=== PATIENT | female | born 1995 | race Two or more races ===

== ENCOUNTER 2024-12-31 16:32 | Emergency (ER) | payer MEDICAID, SELFPAY ==
[2024-12-31 16:34] VITALS: BMI 28.9
[2024-12-31 16:59] VITALS: BP 117/77; PULSE 91; RESP 18; TEMP 36.9; O2SAT 96
--- NOTE | 2024-12-31 17:01 | XR_ITS ---
Examination: OB Transvaginal ultrasound of the pelvis, complete Technique: Transvaginal sonographic images pelvis performed using cameron scale imaging Exam date and time: December 31, 2024 7011 hours INDICATIONS: Pelvic pain nausea and vomiting onset today FINDINGS: Uterus 10.9 cm with intrauterine gestational sac 0.8 cm corresponding to 5 weeks 4 days gestational age No pole, no cardiac activity Right ovary 3.5 cm arterial flow Left ovary obscured by bowel gas IMPRESSION: Empty intrauterine gestational sac, no pole, no cardiac activity Recommend short-term follow-up transvaginal pelvic sonography to confirm viability
--- NOTE | 2024-12-31 17:02 | PD.EDRME ---
Rapid Medical Screening Exam RME Arrival date/time: 12/31/24 16:32 29-year-old female presents to the emergency department today stating she approximate 7 weeks patient reports nausea vomiting pelvic pain Chief Complaint: General Adult/Misc Complain Vital signs: Vital Signs Temperature 98.4 F 12/31/24 16:59 Pulse Rate 91 12/31/24 16:59 Respiratory Rate 18 12/31/24 16:59 Blood Pressure 117/77 12/31/24 16:59 Pulse Oximetry (%) 96 12/31/24 16:59 Oxygen Delivery Method Room Air 12/31/24 16:59
[2024-12-31] MEDS: METOCLOPRAMIDE INJ 5 MG/ML VIAL 2 ML 10 MG IM (17:22)
[2024-12-31 17:47] LABS: Basophils % (Auto) 0 % (0-2.5); Eosinophils # (Auto) 0.1 Thou/mm3 (0.0-0.5); Eosinophils % (Auto) 2 % (0-10); Hematocrit 37.5 % (36.0-46.0); Hemoglobin 12.9 g/dL (12.0-16.0); Immature Granulocytes % (Auto) 0 % (0-0); Immature Granulocytes Auto 0.02 Thou/mm3 (0.00-0.00); Lymphocytes # (Auto) 2.2 Thou/mm3 (1.0-4.8); Lymphocytes % (Auto) 37 % (10-50); Mean Corpuscular HGB Conc 34.4 g/dl (31.0-37.0); Mean Corpuscular Hemoglobin 28.2 pg (25.0-35.0); Mean Corpuscular Volume 82 fL (80-100); Monocytes # (Auto) 0.3 Thou/mm3 (0.0-0.8); Monocytes % (Auto) 6 % (0-12); Neutrophils # (Auto) 3.4 Thou/mm3 (1.8-7.7); Neutrophils % (Auto) 56 % (37-80); Nucleated Red Blood Cell % 0 /100 WBC (0); Platelet Count 331 Thou/mm3 (140-440); RDW Standard Deviation 37.9 fL (36.4-46.3); Red Blood Count 4.58 Miln/mm3 (4.00-5.20); White Blood Count 6.1 Thou/mm3 (3.6-11.0)
[2024-12-31 18:38] LABS: Alanine Aminotransferase 25 U/L (10-49); Albumin, Serum 4.5 gm/dL (3.5-5.0); Albumin/Globulin Ratio 1.5 (1.2-2.2); Alkaline Phosphatase 91 U/L (46-116); Anion Gap 11 (7-16); Aspartate Amino Transferase 16 U/L (0-34); BUN/Creatinine Ratio 14 Ratio (12-20); Beta HCG,Quantitative 4051 mIU/mL (<5.0); Bilirubin,Total 0.4 mg/dL (0.3-1.2); Blood Urea Nitrogen 10 mg/dL (9-23); Calcium 9.7 mg/dL (8.3-10.6); Calcium (Corrected) 9.7 mg/dL (8.5-10.1); Carbon Dioxide 21.9 mMol/L (20.0-31.0); Chloride 101 mMol/L (98-107); Creatinine (Component) 0.7 mg/dL (0.6-1.3); Glucose 264 mg/dL (74-106); Lipase 32 U/L (12-53); Osmolality,Calculated 276 (275-295); Sodium 134 mMol/L (136-145); Total Protein 7.5 gm/dL (5.7-8.2); eGFR > 60 See Note
[2024-12-31 19:30] LABS: Collection Type, Urine Clean Catch
[2024-12-31 20:00] LABS: Bilirubin,Urine Negative (Negative); Blood,Urine Negative (Negative); Clarity,Urine Clear (Clear/Hazy); Color,Urine Lt-Yellow (Lt Yel-Yel); Glucose, Urine 4+ (Negative); Ketones,Urine 2+ (Negative); Leukocyte Esterase,Urine Negative (Negative); Nitrite,Urine Negative (Negative); Protein,Urine Trace (Neg - Trace); RBC,Urine 1 /hpf (0-3); Specific Gravity,Urine 1.038 (1.001-1.035); Squamous Epithelial Cell,Urine 1 /hpf (0-5); Urobilinogen,Urine Negative mg/dL (0.0-1.0); WBC,Urine 1 /hpf (0-5)
--- NOTE | 2024-12-31 22:04 | EDNOTE_ITS ---
ED General RME/HPI General Chief complaint: General Adult/Misc Complain Stated complaint: 7 weeks preg, cramping, nausea Time Seen by Provider: 12/31/24 18:58 Arrival date/time: 12/31/24 16:32 RME / HPI RME / HPI narrative: 29-year-old female patient, 4 para 3, about 7 weeks , came in for evaluation regarding pelvic cramping. Patient's been having pelvic cramping earlier today associated with nausea. Denies any vaginal bleeding spotting or abnormal vaginal discharges. Denies any dysuria or frequency. Denies any other complaints no medications taken prior to arrival. Related Data Home Medications ?Medication ?Instructions ?Recorded ?Confirmed ferrous sulfate 324 mg (65 mg 324 mg PO QDAY 01/12/20 11/25/23 iron) tablet,delayed release vit no.95-ferrous 1 tab PO QDAY 01/12/2011/07 fumarate 28 mg-folic acid 800 mcg tablet () insulin aspart U-100 100 unit/mL 34 unit subcut TID 10/09/23 (3 mL) subcutaneous pen (Novolog FlexPen U-100 Insulin aspart) insulin detemir U-100 100 unit/mL 52 unit subcut QDAY 10/09/23 10/09/23 (3 mL) subcutaneous pen (Levemir FlexPen) insulin detemir U-100 100 unit/mL 52 unit subcut QPM 0 10/09/23 10/09/23 (3 mL) subcutaneous pen (Levemir FlexPen) insulin aspart U-100 100 unit/mL subcut 01/04/24 (3 mL) subcutaneous pen (Novolog FlexPen U-100 Insulin aspart) levothyroxine 100 mcg tablet mcg 01/04/24 Previous Rx's ?Medication ?Instructions ?Recorded fluconazole 150 mg tablet 150 mg PO QDAY 1 dose #1 tab 11/25/23 acetaminophen 300 mg-codeine 15 mg 1 tab PO Q12H PRN p ain #14 tabs 01/07/24 tablet ibuprofen 800 mg tablet 800 mg PO Q8H PRN pain #30 t abs 01/07/24 Allergies Allergy/AdvReac Type Severity Reaction Status Date / Time No Known Allergies Allergy Verified 01/04/24 22:54 Review of Systems Review of Systems Narrative Review of Systems: Review of system reviewed and within normal limits except mentioned in HPI ED Exam Narrative Physical exam: VITAL SIGNS: Reviewed. GENERAL APPEARANCE: Alert and interactive, follows commands, no acute distress, HEAD AND FACE: Non-traumatic. ENT: PERRL, pink conjunctivitis, eyelid no trauma, Mucous membrane moist. NECK: Supple, nontender, no nuchal rigidity. CHEST: No tenderness, no crepitus, no paradoxical movement, no retractions. LUNGS: Clear, well ventilated, symmetric, no rales, no wheezing, no ronchi, no stridor, good breath sounds bilaterally. HEART: Regular rate, regular rhythm, no murmur, no gallops. ABDOMEN: Soft, positive bowel sounds, nondistended, no guarding, nontender, no rebound, no masses, RECTAL: Deferred. GENITAL: Deferred. NEUROLOGICAL: Gross motor function intact sensory function intact, Appropriate for age. MUSCULOSKELETAL: low back nontender, full range of motion. EXTREMITIES: Nontender, full range of motion. SKIN: Color pink, dry, no rash, no lacerations, no abrasions, no contusions. LYMPHATICS: Deferred. Course Quality Measures none Orders Category Date Time Status US OB transvaginal Stat Exams 12/31/24 17:01 Completed ABO/RH Type Stat Lab 12/31/24 17:30 Completed Beta HCG,Quantitative Stat Lab 12/31/24 17:30 Completed CBC Stat Lab 12/31/24 17:30 Completed Comprehensive Metabolic Panel Stat Lab 12/31/24 17:30 Completed Lipase Stat Lab 12/31/24 17:30 Completed UA [Urinalysis] Stat Lab 12/31/24 19:14 Completed Urine Culture Stat Lab 12/31/24 19:14 Received Metoclopramide Inj [Reglan Inj] Med 12/31/24 17:01 Discontinued 10 mg IM X1 ONE Vital Signs Vital signs: Vital Signs Temperature 98.4 F 12/31/24 16:59 Pulse Rate 91 12/31/24 16:59 Respiratory Rate 18 12/31/24 16:59 Blood Pressure 117/77 12/31/24 16:59 Pulse Oximetry (%) 96 12/31/24 16:59 Oxygen Delivery Method Room Air 12/31/24 16:59 [facility] Patient data External records reviewed:: None Clinical information provided by:: patient Social determinants that could affect healthcare access:: none Patient has the following chronic illnesses:: None How is presenting disease/condition affected by chronic disease/condition?: no chronic disease Evaluation data The following diagnostics were reviewed and interpreted by me:: lab results and radiology exam(s) Lab and/or radiology exams considered but not ordered:: None Interpretation Summary: See results in MDM Medications Medications considered but not ordered:: None Medication administrations:: Medication Administration History Discontinued Medications Metoclopramide HCl (Metoclopramide Inj 5 Mg/Ml Vial 2 Ml) 10 mg IM X1 ONE; Protocol Stop: 12/31/24 17:02 Last Admin: 12/31/24 17:22 Dose: 10 mg Documented By: Reglan Consultations Consultation(s) initiated? (list below): No Diagnosis Differential Diagnosis ED Complaint MDM: Pelvic cramping, UTI, threatened , ectopic , Most likely diagnosis given after review of the tests above:: Pelvic cramping, Admission Indicated Admission indicated?: not indicated Explain why admission is indicated or not indicated:: Stable Admission Request Was there a request for admission?: No Disposition Plan Disposition Plan: Discharge Discharge Attestation Discharge Attestation: The patient was given an opportunity to ask questions and understood the discharge instructions. Discharge instructions specifically effects, indications for sooner follow up or return to the emergency department, and the expected course of current diagnosis. Patient condition: Stable Medical Decision Making MDM Narrative MDM Narrative: 29-year-old female patient, 4 para 3, about 7 weeks , came in for evaluation regarding pelvic cramping. Patient's been having pelvic cramping earlier today associated with nausea. Denies any vaginal bleeding spotting or abnormal vaginal discharges. Denies any dysuria or frequency. Denies any other complaints no medications taken prior to arrival. Patient's workup today is significant for hCG of 4051, ultrasound of showed empty gestational sac intrauterine, with no cardiac activity or pole. Results discussed with the patient. Patient was also given a copy of her ultrasound. The rest of the labs is abdomen remarkable. Patient was advised to return to emergency room or follow-up with PCP in 3 days for repeat hCG. Differential Diagnosis Differential Diagnosis: Pelvic cramping, UTI, threatened , ectopic , Lab Data 12/31/24 17:30 12/31/24 17:30 Labs: Lab Results 12/31/24 12/31/24 Range/Units 17:30 19:14 WBC 6.1 (3.6-11.0) Thou/mm3 RBC 4.58 (4.00-5.20) Miln/mm3 Hgb 12.9 (12.0-16.0) g/dL Hct 37.5 (36.0-46.0) % MCV 82 (80-100) fL MCH 28.2 (25.0-35.0) pg MCHC 34.4 (31.0-37.0) g/dl RDW Std Deviation 37.9 (36.4-46.3) fL Plt Count 331 (140-440) Thou/mm3 Neut % (Auto) 56 (37-80) % Lymph % (Auto) 37 (10-50) % [place] % (Auto) 6 (0-12) % Eos % (Auto) 2 (0-10) % Baso % (Auto) 0 (0-2.5) % Neut # (Auto) 3.4 (1.8-7.7) Thou/mm3 Lymph # (Auto) 2.2 (1.0-4.8) Thou/mm3 [place] # (Auto) 0.3 (0.0-0.8) Thou/mm3 Eos # (Auto) 0.1 (0.0-0.5) Thou/mm3 Baso # (Auto) 0.0 (0.0-0.2) Thou/mm3 Immature Gran # (Auto) 0.02 H (0.00-0.00) Thou/mm3 Absolute Nucleated RBC 0.00 (0.00-0.00) Thou/mm3 Immature Gran % 0 (0-0) % Nucleated RBC % 0 (0) /100 WBC Sodium 134 L (136-145) mMol/L Potassium 4.0 (3.4-5.1) mMol/L Chloride 101 (98-107) mMol/L Carbon Dioxide 21.9 (20.0-31.0) mMol/L Anion Gap 11 (7-16) BUN 10 (9-23) mg/dL Creatinine 0.7 (0.6-1.3) mg/dL Estim Creat Clear Calc 108.0 (>60) mL/min eGFR > 60 (60 - ) See Note BUN/Creatinine Ratio 14 (12-20) Ratio Glucose 264 H (74-106) mg/dL Calculated Osmolality 276 (275-295) Calcium 9.7 (8.3-10.6) mg/dL Corrected Calcium 9.7 (8.5-10.1) mg/dL Total Bilirubin 0.4 (0.3-1.2) mg/dL AST 16 (0-34) U/L ALT 25 (10-49) U/L Alkaline Phosphatase 91 (46-116) U/L Total Protein 7.5 (5.7-8.2) gm/dL Albumin 4.5 (3.5-5.0) gm/dL Globulin 3.0 (2.3-3.5) gm/dL Albumin/Globulin Ratio 1.5 (1.2-2.2) Lipase 32 (12-53) U/L Beta HCG, Quant 4051 (<5.0) mIU/mL Ur Collection Type Clean Catch Urine Color Lt-Yellow (Lt Yel-Yel) Urine Clarity Clear (Clear/Hazy) Urine pH 6.0 (5.0-7.0) Ur Specific [place] 1.038 H (1.001-1.035) Urine Protein Trace (Neg - Trace) Urine Glucose (UA) 4+ A (Negative) Urine Ketones 2+ A (Negative) Urine Blood Negative (Negative) Urine Nitrite Negative (Negative) Urine Bilirubin Negative (Negative) Urine Urobilinogen (Auto) Negative (0.0-1.0) mg/dL Ur Leukocyte Esterase Negative (Negative) Urine RBC 1 (0-3) /hpf Urine WBC 1 (0-5) /hpf Ur Squamous Epith Cells 1 (0-5) /hpf Urine Bacteria None (None) Blood Type A Positive Blood Bank Wristband ID Yes Discharge Plan Plan Patient Disposition: HOME (Self Care) Prescriptions/Referrals Prescriptions/Med Rec: No Action ferrous sulfate 324 mg (65 mg iron) Tablet,Delayed Release (Dr/Ec) 324 mg PO QDAY PNV cmb#95-ferrous fumarate-FA [] 28 mg iron- 800 mcg Tablet 1 tab PO QDAY fluconazole 150 mg tablet 150 mg PO QDAY Qty: 1 0RF Rx Instructions: administer on day 1 of therapy Levemir FlexPen 100 unit/mL (3 mL) Insulin Pen 52 unit SUBCUT QDAY Levemir FlexPen 100 unit/mL (3 mL) Insulin Pen 52 unit SUBCUT QPM insulin aspart U-100 [Novolog FlexPen U-100 Insulin] 100 unit/mL (3 mL) Insulin Pen 34 unit SUBCUT TID Rx Instructions: 34units with meals levothyroxine 100 mcg tablet Patient Comments: take 1 tablet by mouth every morning ON AN EMPTY STOMACH insulin aspart U-100 [Novolog FlexPen U-100 Insulin] 100 unit/mL (3 mL) insulin pen SUBCUT Patient Comments: inject 34 units BEFORE BREAKFAST, 34 UNITS BEFORE LUNCH, AND 40 UNITS BEFORE DINNER acetaminophen-codeine 300-15 mg tablet 1 tab PO Q12H PRN (Reason: pain) Qty: 14 0RF ibuprofen 800 mg tablet 800 mg PO Q8H PRN (Reason: pain) Qty: 30 0RF Referrals: Villa Kulkarni MD [Primary Care Provider] - In 1 week Problem List Clinical Impression: Pelvic cramping, Currently Patient/Caregiver Discharge Instructions Education Materials: ED Pelvic Pain, Unknown Cause Additional Instructions: Thank you for the opportunity for serving you today. You are stable for discharged . You are advised to: Follow-up with your PCP in 1 to 2 days Return to ED for worsening of symptoms Increase oral fluids Return to emergency room in 3 days for repeat hCG, today's hCG was noted to be 4051. Your ultrasound showed empty gestational sac no cardiac activity or pole noted at this time could be too early Print Language: Belizean Stand Alone Forms: [employer] Award Info., Patient Portal Info Letter
== END 2024-12-31 22:20 | disposition home or self-care (01) ==
PROVIDERS: Nurse Practitioner Primary Care; Emergency Provider Emergency Medicine; PCP Family Medicine
DX: O26.891 Other specified pregnancy related conditions, first trimester (principal); R10.2 Pelvic and perineal pain; Z3A.01 Less than 8 weeks gestation of pregnancy
CPT/HCPCS: 36415; 76817; 80053; 81001; 83690; 84702; 85025; 86900; 86901; 87086; 96372; 99284; J2765

== ENCOUNTER 2025-01-03 21:16 | Emergency (ER) | payer MEDICAID, SELFPAY ==
[2025-01-03 21:17] VITALS: BMI 33.3
[2025-01-03 21:26] VITALS: BP 131/80; PULSE 104; RESP 20; TEMP 36.8; O2SAT 96
--- NOTE | 2025-01-03 21:40 | PD.EDRME ---
Rapid Medical Screening Exam RME Arrival date/time: 01/03/25 21:16 29 year old female present to ED for c/o of need repeat hCG I have greeted and performed a focused initial assessment of this patient. A comprehensive ED assessment and evaluation of the patient, analysis of all test results, and completion of the medical decision making process will be conducted by additional ED providers. Chief Complaint: General Adult/Misc Complain Time Seen by Provider: 01/03/25 21:39 Vital signs: Vital Signs Temperature 98.3 F 01/03/25 21:26 Pulse Rate 104 H 01/03/25 21:26 Respiratory Rate 20 01/03/25 21:26 Blood Pressure 131/80 H 01/03/25 21:26 Pulse Oximetry (%) 96 01/03/25 21:26 Oxygen Delivery Method Room Air 01/03/25 21:26
[2025-01-03 22:37] LABS: Beta HCG,Quantitative 7077 mIU/mL (<5.0)
--- NOTE | 2025-01-03 22:57 | PD.EDADULT ---
ED General RME/HPI General Chief complaint: General Adult/Misc Complain Stated complaint: NEEDS RPT HCG LEVEL Time Seen by Provider: 01/03/25 21:39 Arrival date/time: 01/03/25 21:16 29 year old female present to emergency room for repeat HCG levels done 2 days ago. no current complaint SEVERITY: Symptoms are described as being severe with limitations on activities of daily living CONTEXT: The patient is unable to identify any inciting events. DURATION/TIMING: The symptoms started approximately 2 days ago ASSOCIATED SYMPTOMS: The patient is unable to identify any other associated symptoms. MODIFYING FACTORS: The patient is unable to identify any alleviating or aggravating symptoms. PERTINENT ROS: no fevers, no chest pain/shortness of breath no nausea,vomiting, diarrhea, no dizziness/headache no rash no loc/syncope episode no abd/back pain no dsyuria,urgency,frequency REVIEW OF SYSTEMS: See History of Present Illness - with the exception of those mentioned in the history of present illness, all other systems reviewed and reported as negative GENERAL: In general the patient is awake, interactive, in an emergency department gurney. HEAD/EYES/EARS/NOSE/THROAT: normo-cephalic, atraumatic, mucus membranes are moist, anicteric, palpebral conjunctiva is pink, trachea is midline. CARDIOVASCULAR: regular rate and regular rhythm, no murmurs, heart sounds are not distant, strong pulses in all four extremities that are equal and symmetric bilateral upper and lower extremities, normal capillary refill. CHEST/PULMONARY: normal chest rise and fall, good air movement, clear to auscultation bilaterally, normal inspiratory to expiratory ratios without evidence of respiratory distress. NECK: No midline/Paraspinal tenderness, no step off ROM/Strenght intact No Kernig and bruzinski sign. No trauma ABDOMEN: soft, not tender, no masses appreciated BACK: normal range of motion without pain. NEUROLOGICAL: cranio-facial features are symmetric, moves all four extremities equally without obvious limitations or weakness. EXTREMITY: no tenderness to palpation over the long bones or large joints of the bilateral upper and lower extremities, no joint swelling, no joint erythema, no signs of trauma, no unilateral leg swelling and no peripheral edema. SKIN: warm, dry, well-perfused, no jaundice, no rash, no telangiectasias or petechia. PSYCH: calm, cooperative, no evidence of psychosis or agitation RME / HPI RME / HPI narrative: 01/03/25 21:16 29 year old female present to ED for c/o of need repeat hCG I have greeted and performed a focused initial assessment of this patient. A comprehensive ED assessment and evaluation of the patient, analysis of all test results, and completion of the medical decision making process will be conducted by additional ED providers. Related Data Home Medications ?Medication ?Instructions ?Recorded ?Confirmed ferrous sulfate 324 mg (65 mg 324 mg PO QDAY 01/12/20 11/25/23 iron) tablet,delayed release vit no.95-ferrous 1 tab PO QDAY 01/12/20 11/25/23 fumarate 28 mg-folic acid 800 mcg tablet () insulin aspart U-100 100 unit/mL 34 unit subcut TID 10/09/23 10/09/23 (3 mL) subcutaneous pen (Novolog FlexPen U-100 Insulin aspart) insulin detemir U-100 100 unit/mL 52 unit subcut QDAY 10/09/23 10/09/23 (3 mL) subcutaneous pen (Levemir FlexPen) insulin detemir U-100 100 unit/mL 52 unit subcut QPM 10/09/23 10/09/23 (3 mL) subcutaneous pen (Levemir FlexPen) insulin aspart U-100 100 unit/mL subcut 01/04/24 (3 mL) subcutaneous pen (Novolog FlexPen U-100 Insulin aspart) levothyroxine 100 mcg tablet mcg 01/04/24 Previous Rx's ?Medication ?Instructions ?Recorded fluconazole 150 mg tablet 150 mg PO QDAY 1 dose #1 tab 11/25/23 acetaminophen 300 mg-codeine 15 mg 1 tab PO Q12H PRN pain #14 tabs 01/07/24 tablet ibuprofen 800 mg tablet 800 mg PO Q8H PRN pain #30 tabs 01/07/24 Allergies Allergy/AdvReac Type Severity Reaction Status Date / Time No Known Allergies Allergy Verified 01/04/24 22:54 Course Course Course Narrative: repeat hcg 2 days ago hcg was 4051, today 7077, most likely viatable . advised pt to follow up with OB. FINDINGS: Uterus 10.9 cm with intrauterine gestational sac 0.8 cm corresponding to 5 weeks 4 days gestational age No pole, no cardiac activity Right ovary 3.5 cm arterial flow Left ovary obscured by bowel gas IMPRESSION: Empty intrauterine gestational sac, no pole, no cardiac activity Recommend short-term follow-up transvaginal pelvic sonography to confirm viability Quality Measures none Orders Category Date Time Status Beta HCG,Quantitative Stat Lab 01/03/25 21:45 Completed Vital Signs Vital signs: Vital Signs Temperature 98.3 F 01/03/25 21:26 Pulse Rate 104 H 01/03/25 21:26 Respiratory Rate 20 01/03/25 21:26 Blood Pressure 131/80 H 01/03/25 21:26 Pulse Oximetry (%) 96 01/03/25 21:26 Oxygen Delivery Method Room Air 01/03/25 21:26 MDM Patient data External records reviewed:: [facility] previous records Clinical information provided by:: patient Social determinants that could affect healthcare access:: none Patient has the following chronic illnesses:: n/a How is presenting disease/condition affected by chronic disease/condition?: no chronic disease Evaluation data The following diagnostics were reviewed and interpreted by me:: lab results Lab and/or radiology exams considered but not ordered:: n/a Interpretation Summary: HC Medications Medications considered but not ordered:: n/a Medication administrations:: n/a Consultations Consultation(s) initiated? (list below): No Diagnosis Differential Diagnosis ED Complaint MDM: ectopic, miscarriage Most likely diagnosis given after review of the tests above:: Admission Indicated Admission indicated?: not indicated Explain why admission is indicated or not indicated:: n/a Admission Request Was there a request for admission?: No Disposition Plan Disposition Plan: Discharge Discharge Attestation Discharge Attestation: The patient and all family members were given an opportunity to ask questions and understood the discharge instructions. Discharge instructions specifically effects, indications for sooner follow up or return to the emergency department, and the expected course of current diagnosis. Patient condition: Stable Medical Decision Making Differential Diagnosis Differential Diagnosis: ectopic, miscarriage Lab Data Labs: Lab Results 01/03/25 Range/Units 21:45 Beta HCG, Quant 7077 (<5.0) mIU/mL Discharge Plan Plan Patient Disposition: HOME (Self Care) Health Concerns: Follow up with your OB as directed Return to ED if symptoms worsen Your HCG level is 7077 today. Prescriptions/Referrals Prescriptions/Med Rec: No Action ferrous sulfate 324 mg (65 mg iron) Tablet,Delayed Release (Dr/Ec) 324 mg PO QDAY PNV cmb#95-ferrous fumarate-FA [] 28 mg iron- 800 mcg Tablet 1 tab PO QDAY fluconazole 150 mg tablet 150 mg PO QDAY Qty: 1 0RF Rx Instructions: administer on day 1 of therapy Levemir FlexPen 100 unit/mL (3 mL) Insulin Pen 52 unit SUBCUT QDAY Levemir FlexPen 100 unit/mL (3 mL) Insulin Pen 52 unit SUBCUT QPM insulin aspart U-100 [Novolog FlexPen U-100 Insulin] 100 unit/mL (3 mL) Insulin Pen 34 unit SUBCUT TID Rx Instructions: 34units with meals levothyroxine 100 mcg tablet Patient Comments: take 1 tablet by mouth every morning ON AN EMPTY STOMACH insulin aspart U-100 [Novolog FlexPen U-100 Insulin] 100 unit/mL (3 mL) insulin pen SUBCUT Patient Comments: inject 34 units BEFORE BREAKFAST, 34 UNITS BEFORE LUNCH, AND 40 UNITS BEFORE DINNER acetaminophen-codeine 300-15 mg tablet 1 tab PO Q12H PRN (Reason: pain) Qty: 14 0RF ibuprofen 800 mg tablet 800 mg PO Q8H PRN (Reason: pain) Qty: 30 0RF Referrals: Villa Kulkarni MD [Primary Care Provider] - In 1 week Problem List Clinical Impression: Currently Patient/Caregiver Discharge Instructions Education Materials: First Trimester Print Language: Nepali Stand Alone Forms: [employer] Award Info., Patient Portal Info Letter
== END 2025-01-03 23:17 | disposition home or self-care (01) ==
PROVIDERS: Physician Assistant; Emergency Provider Emergency Medicine; PCP Family Medicine
DX: O26.891 Other specified pregnancy related conditions, first trimester (principal); Z3A.01 Less than 8 weeks gestation of pregnancy
CPT/HCPCS: 36415; 84702; 99283

== ENCOUNTER 2025-01-14 17:36 | Emergency (ER) | payer MEDICAID, SELFPAY ==
[2025-01-14 18:08] VITALS: BP 108/67; PULSE 90; RESP 18; TEMP 36.6; O2SAT 97; BMI 34.9
--- NOTE | 2025-01-14 18:28 | XR_ITS ---
Examination: OB Transvaginal ultrasound of the pelvis, complete Technique: Transvaginal sonographic images pelvis performed using cameron scale imaging Exam date and time: January 15, 2000 2510 0 1:00 PM Indications: Vaginal bleeding and cramping beginning 6 hours ago Findings: Uterus 11.0 cm with pole 0.8 cm corresponding to 6 week 6 day gestational age Cardiac motion 143 BPM Small adjacent subchorionic hemorrhage 18 x 6 mm Right ovary 2.4 cm arterial flow Left ovary 3.1 cm arterial flow Impression: Viable intrauterine gestation 6 weeks 6 days Small subchorionic hemorrhage, 8 x 2 x 6 mm
--- NOTE | 2025-01-14 18:38 | EDNOTE_ITS ---
ED OB Contraction Preg RMI/HPI General Chief complaint: Vaginal Bleeding Stated complaint: VAGINAL BLEEDING / PAIN X 30 MIN; 9 WKS PREG Time Seen by Provider: 01/14/25 18:27 Arrival date/time: 01/14/25 17:36 29F at approximately 8-9 weeks and with history of gestational DM presents to ED with L-pelvic cramping and vaginal spotting for 30 min. Limitations: no limitations Related Data Home Medications ?Medication ?Instructions ?Recorded ?Confirmed ferrous sulfate 324 mg (65 mg 324 mg PO QDAY 01/12/20 11/25/23 iron) tablet,delayed release vit no.95-ferrous 1 tab PO QDAY 01/12/2011/07 fumarate 28 mg-folic acid 800 mcg tablet () insulin aspart U-100 100 unit/mL 34 unit subcut TID 10/09/23 (3 mL) subcutaneous pen (Novolog FlexPen U-100 Insulin aspart) insulin detemir U-100 100 unit/mL 52 unit subcut QDAY 10/09/23 10/09/23 (3 mL) subcutaneous pen (Levemir FlexPen) insulin detemir U-100 100 unit/mL 52 unit subcut QPM 0 10/09/23 10/09/23 (3 mL) subcutaneous pen (Levemir FlexPen) insulin aspart U-100 100 unit/mL subcut 01/04/24 (3 mL) subcutaneous pen (Novolog FlexPen U-100 Insulin aspart) levothyroxine 100 mcg tablet mcg 01/04/24 Previous Rx's ?Medication ?Instructions ?Recorded fluconazole 150 mg tablet 150 mg PO QDAY 1 dose #1 tab 11/25/23 acetaminophen 300 mg-codeine 15 mg 1 tab PO Q12H PRN p ain #14 tabs 01/07/24 tablet ibuprofen 800 mg tablet 800 mg PO Q8H PRN pain #30 t abs 01/07/24 Allergies Allergy/AdvReac Type Severity Reaction Status Date / Time No Known Allergies Allergy Verified 01/14/25 17:39 Review of Systems Review of Systems Systems Reviewed: All systems reviewed, normal except as documented Constitutional Constitutional: Reports system reviewed and no additional complaints, except as documented, Denies fever(s) and Denies headache(s) ENT Ears, Nose, Mouth, and Throat: Denies disequilibrium and Denies headache(s) Cardiovascular Cardiovascular: Reports system reviewed and no additional complaints, except as documented, Denies chest pain and Denies dyspnea Respiratory Respiratory: Reports system reviewed and no additional complaints, except as documented, Denies cough and Denies dyspnea Gastrointestinal Gastrointestinal: Reports system reviewed and no additional complaints, except as documented, Denies abdominal pain, Denies nausea and Denies vomiting Genitourinary Genitourinary: Reports as per HPI, Reports abnormal vaginal bleeding and Reports pelvic pain Neurologic Neurologic: Reports system reviewed and no additional complaints, except as documented, Denies confusion, Denies disequilibrium and Denies headache(s) Psychiatric Psychiatric: Denies confusion Past Medical History Past Medical History NEUROLOGIC: Negative Neurological Disorders or Seizures CARDIAC: Negative Cardiac Disorders or Congestive Heart Failure RESPIRATORY: Negative Chronic Obstructive Pulmonary Disease (COPD) GASTROINTESTINAL: Positive Gall Bladder Disease; Negative Gastrointestinal Disorders, Hepatitis or Colorectal Cancer GENITOURINARY: Negative Genitourinary Disorders, Renal Disease or Prostate Cancer REPRODUCTIVE: Positive Previous Pregnancies (X2); Negative Breast Cancer, Endometriosis, Pelvic Inflammatory Disease, Testicular Cancer or Uterine Prolapse MUSCULOSKELETAL: Negative Musculoskeletal Disorders or Bone Cancer ENDOCRINE: Positive Endocrine Disorders and Hypothyroidism; Negative Diabetes Mellitus Type 1, Diabetes Mellitus Type 2, Hypoglycemia, Hyperthyroidism, Parathyroid Disease, Pituitary Disease, Systemic Lupus Erythematosus, Syndrome of Inappropriate Antidiuretic Hormone (SIADH) or Graves' Disease HEMATOLOGIC: Negative Blood Disorders OTHER HISTORY: Positive Hospitalization (CHILDBIRTH AND CHOLECYSTECTOMY); Negative Autoimmune Disease, Down Syndrome, Developmental Delay, Shingles, Falls, Blood Transfusions, Blood Transfusion Reaction, Anesthesia Reactions, Organ Transplant, Chemotherapy, Radiation Therapy, Hyperbaric Therapy, MRSA, VRSA, Vancomycin-Resistant Enterococci, Human Immunodeficiency Virus (HIV), Chicken Pox, Measles, Mumps, Rubella ([place] Measles), Pertussis, Clostridium Difficile, Cancer, Breast Cancer, Cervical Cancer, Colorectal Cancer, Lung Cancer, Ovarian Cancer, Prostate Cancer or Testicular Cancer Family History FAMILY HISTORY: Negative Family Psychiatric Problems, Family Respiratory Disorders, Family Cardiac Disorders, Family Gastrointestinal Problems, Family Cancer, Family Surgery or Family Anesthesia Reaction Surgical History SURGICAL: Positive Abdominal Surgery (GALL STONES) and Section (2020); Negative Neurologic Surgery, Brain Shunt, Mastectomy, Lumpectomy, Hysterectomy, Tubal Ligation or Organ Transplant Social History SMOKING STATUS: Never smoker ED Exam General Limitations: Present no limitations General appearance: Present alert and in no apparent distress Head Head exam: Present atraumatic Eye Eye exam: Present normal appearance, PERRL and EOMI ENT ENT exam: Present normal exam, normal oropharynx and mucous membranes moist Neck Neck exam: Present normal inspection, full ROM and trachea midline Chest Chest inspection: Present normal inspection and symmetric chest wall rise Respiratory Respiratory exam: Present normal lung sounds bilaterally Cardiovascular Cardiovascular exam: Present regular rate, normal rhythm and normal heart sounds Abdominal Exam Abdominal exam: Present soft and normal bowel sounds Extremities Exam Extremities exam: Present normal inspection and full ROM Back Exam Back exam: Present normal inspection and full ROM Neurological Exam Neurological exam: Present alert, oriented X3 and CN II-XII intact Psychiatric Psychiatric exam: Present normal affect and normal mood Skin Skin exam: Present warm, dry, intact and normal color Course Quality Measures none Orders Category Date Time Status US OB transvaginal Stat Exams 01/14/25 18:28 Completed US retroperitoneal comp Stat Exams 01/14/25 18:40 Completed Beta HCG,Quantitative Stat Lab 01/14/25 18:39 Completed CBC Stat Lab 01/14/25 18:39 Completed CMP [Comprehensive Metabolic Panel] Stat Lab 01/14/25 18:39 Completed UA [Urinalysis] Stat Lab 01/14/25 18:32 Completed Urine Culture Stat Lab 01/14/25 18:32 Received Vital Signs Vital signs: Vital Signs Temperature 97.8 F 01/14/25 18:08 Pulse Rate 90 01/14/25 18:08 Respiratory Rate 18 01/14/25 18:08 Blood Pressure 108/67 01/14/25 18:08 Pulse Oximetry (%) 97 01/14/25 18:08 Oxygen Delivery Method Room Air 01/14/25 18:08 O2 at 97% on RA and WNLs Vaginal Bleeding MDM Narrative MDM Narrative: 29F at approximately 8-9 weeks and with history of gestational DM presents to ED with L-pelvic cramping and vaginal spotting for 30 min. Physical exam reveals well-appearing female. Patient is afebrile, calm, and alert. Patient's blood type is A+. US reveals normal IUP with normal FHR, but there is a subchorionic hemorrhage. No leukocytosis or anemia. CMP unremarkable. Beta HCG WNLs. UA clean but lots of glucose consistent with gestational DM. Patient data External records reviewed:: [facility] previous records Clinical information provided by:: patient Social determinants that could affect healthcare access:: none Patient has the following chronic illnesses:: none How is presenting disease/condition affected by chronic disease/condition?: no chronic disease Evaluation data The following diagnostics were reviewed and interpreted by me:: lab results and radiology exam(s) Lab and/or radiology exams considered but not ordered:: ordered Interpretation Summary: above Medications / Prescriptions Medications or Prescriptions considered but not ordered:: not ordered Medication administrations:: n/a Consultations Consultation(s) initiated? (list below): No Diagnosis Vaginal Bleeding Differential Diagnosis: missed , threatened , dysfunctional uterine bleeding, menometrorrhagia, incomplete , ectopic without intrauterine , vaginal bleeding and other (subchorionic hemorrhage) Most likely diagnosis given after review of the tests above:: subchorionic hemorrhage Admission Indicated Admission indicated?: not indicated Admission Request Was there a request for admission?: No Disposition Plan Disposition Plan: Discharge Discharge Attestation Discharge Attestation: The patient and all family members were given an opportunity to ask questions and understood the discharge instructions. Discharge instructions specifically effects, indications for sooner follow up or return to the emergency department, and the expected course of current diagnosis. Patient condition: Stable Discharge Plan Plan Patient Disposition: HOME (Self Care) Disposition Comment: Stable Prescriptions/Referrals Prescriptions/Med Rec: No Action ferrous sulfate 324 mg (65 mg iron) Tablet,Delayed Release (Dr/Ec) 324 mg PO QDAY [facility]FA [] 28 mg iron- 800 mcg Tablet 1 tab PO QDAY fluconazole 150 mg tablet 150 mg PO QDAY Qty: 1 0RF Rx Instructions: administer on day 1 of therapy Levemir FlexPen 100 unit/mL (3 mL) Insulin Pen 52 unit SUBCUT QDAY Levemir FlexPen 100 unit/mL (3 mL) Insulin Pen 52 unit SUBCUT QPM insulin aspart U-100 [Novolog FlexPen U-100 Insulin] 100 unit/mL (3 mL) Insulin Pen 34 unit SUBCUT TID Rx Instructions: 34units with meals levothyroxine 100 mcg tablet Patient Comments: take 1 tablet by mouth every morning ON AN EMPTY STOMACH insulin aspart U-100 [Novolog FlexPen U-100 Insulin] 100 unit/mL (3 mL) insulin pen SUBCUT Patient Comments: inject 34 units BEFORE BREAKFAST, 34 UNITS BEFORE LUNCH, AND 40 UNITS BEFORE DINNER acetaminophen-codeine 300-15 mg tablet 1 tab PO Q12H PRN (Reason: pain) Qty: 14 0RF ibuprofen 800 mg tablet 800 mg PO Q8H PRN (Reason: pain) Qty: 30 0RF Referrals: No Primary/Family,Physician [Primary Care Provider] - In 1 week Problem List Clinical Impression: Subchorionic hemorrhage Patient/Caregiver Discharge Instructions Education Materials: Bleeding During Early Additional Instructions: Please follow-up with PCP/OBYGN within 24-48 hours and return immediately if symptoms worsen. Print Language: [place]ib[place]ian Stand Alone Forms: Patient Portal Info Letter PA/[employer]OD BANK [employer]ORATORY PROFESSIONAL Supervising Physician PA/[employer]ORAT[employer] PROFESSIONAL Supervising Physician: Dr. Ballard
--- NOTE | 2025-01-14 18:40 | XR_ITS ---
Examination: Retroperitoneal ultrasound, complete Technique: Multiple high resolution grayscale images of the retroperitoneum obtained, including kidneys and bladder. Exam date and time:January 14, 2025 at 10:10 PM Indications: Left leg pain and vaginal bleeding and cramping beginning 6 hours ago Findings: Right kidney 12.5 cm cortex 1.6 cm Left kidney 13.3 cm cortex 2.0 cm Mild left renal parenchymal scar formation No renal calculi No significant hydronephrosis Contracted urinary bladder Please see the pelvic sonogram report Impression: Mild left renal parenchymal scar formation No hydronephrosis
[2025-01-14 18:45] LABS: Collection Type, Urine Clean Catch
[2025-01-14 18:48] LABS: Basophils % (Auto) 1 % (0-2.5); Eosinophils # (Auto) 0.1 Thou/mm3 (0.0-0.5); Eosinophils % (Auto) 1 % (0-10); Hematocrit 37.6 % (36.0-46.0); Hemoglobin 12.8 g/dL (12.0-16.0); Immature Granulocytes % (Auto) 0 % (0-0); Immature Granulocytes Auto 0.01 Thou/mm3 (0.00-0.00); Lymphocytes # (Auto) 1.9 Thou/mm3 (1.0-4.8); Lymphocytes % (Auto) 37 % (10-50); Mean Corpuscular Hemoglobin 28.4 pg (25.0-35.0); Mean Corpuscular Volume 83 fL (80-100); Monocytes # (Auto) 0.3 Thou/mm3 (0.0-0.8); Monocytes % (Auto) 7 % (0-12); Neutrophils # (Auto) 2.7 Thou/mm3 (1.8-7.7); Neutrophils % (Auto) 54 % (37-80); Nucleated Red Blood Cell % 0 /100 WBC (0); Platelet Count 299 Thou/mm3 (140-440); RDW Standard Deviation 40.2 fL (36.4-46.3); Red Blood Count 4.51 Miln/mm3 (4.00-5.20)
[2025-01-14 18:57] LABS: Bilirubin,Urine Negative (Negative); Blood,Urine 1+ (Negative); Clarity,Urine Clear (Clear/Hazy); Color,Urine Lt-Yellow (Lt Yel-Yel); Glucose, Urine 4+ (Negative); Ketones,Urine 1+ (Negative); Leukocyte Esterase,Urine Negative (Negative); Nitrite,Urine Negative (Negative); Protein,Urine Negative (Neg - Trace); RBC,Urine 3 /hpf (0-3); Specific Gravity,Urine 1.028 (1.001-1.035); Squamous Epithelial Cell,Urine 1 /hpf (0-5); Urobilinogen,Urine Negative mg/dL (0.0-1.0); WBC,Urine 1 /hpf (0-5)
[2025-01-14 19:26] LABS: Alanine Aminotransferase 26 U/L (10-49); Albumin, Serum 4.4 gm/dL (3.5-5.0); Albumin/Globulin Ratio 1.5 (1.2-2.2); Alkaline Phosphatase 87 U/L (46-116); Anion Gap 12 (7-16); Aspartate Amino Transferase 18 U/L (0-34); BUN/Creatinine Ratio 10 Ratio (12-20); Bilirubin,Total 0.4 mg/dL (0.3-1.2); Blood Urea Nitrogen 7 mg/dL (9-23); Calcium 9.6 mg/dL (8.3-10.6); Calcium (Corrected) 9.6 mg/dL (8.5-10.1); Chloride 103 mMol/L (98-107); Creatinine (Component) 0.7 mg/dL (0.6-1.3); Estimated Creatinine Clearance 142.3 mL/min (>60); Globulin 2.9 gm/dL (2.3-3.5); Glucose 288 mg/dL (74-106); Osmolality,Calculated 280 (275-295); Potassium 3.7 mMol/L (3.4-5.1); Sodium 136 mMol/L (136-145); Total Protein 7.3 gm/dL (5.7-8.2); eGFR > 60 See Note
[2025-01-14 20:48] LABS: Beta HCG,Quantitative 24090 mIU/mL (<5.0)
[2025-01-14 22:54] VITALS: BP 111/78; PULSE 84; RESP 18; TEMP 36.6; O2SAT 100
== END 2025-01-14 22:58 | disposition home or self-care (01) ==
PROVIDERS: Physician Assistant; Emergency Provider Emergency Medicine
DX: O46.8X1 Other antepartum hemorrhage, first trimester (principal); O24.414 Gestational diabetes mellitus in pregnancy, insulin controlled; Z3A.09 9 weeks gestation of pregnancy
CPT/HCPCS: 36415; 76770; 76817; 80053; 81001; 84702; 85025; 87086; 99284

== ENCOUNTER 2025-05-18 17:46 | Emergency (ER) | payer MEDICAID, SELFPAY ==
[2025-05-18 17:48] VITALS: BMI 35.6
[2025-05-18 18:23] VITALS: BP 104/71; PULSE 100; RESP 18; TEMP 36.7; O2SAT 98
--- NOTE | 2025-05-18 18:39 | XR_ITS ---
Examination: Duplex scan of the lower extremity, unilateral left Date and time of exam: May 18, 2025 1846 hours INDICATIONS: Leg cramping beginning 4 days ago Technique: Duplex scan of the extremity veins using B-mode/grayscale imaging and Doppler spectral analysis and color flow Attention is directed to internal echogenicity, compression and augmentation involving these veins, color flow assessment, spectral analysis Findings: Major deep venous structures in the extremity demonstrate normal course and caliber. There is no evidence of deep vein thrombosis. Normal color flow and spectral analysis Impression: Negative for DVT..
--- NOTE | 2025-05-18 18:43 | EDNOTE_ITS ---
ED Extremity Problem RME/HPI General Chief complaint: General Adult/Misc Complain Stated complaint: PAIN IN L) CALF/FOOT, STRAINED Time Seen by Provider: 05/18/25 18:39 Arrival date/time: 05/18/25 17:46 29F with history of DM presents to ED with LLE pain w/o fall/trauma. Patient thinks she may have strained it. Patient is 6 months . Limitations: no limitations Related Data Home Medications ?Medication ?Instructions ?Recorded ?Confirmed ferrous sulfate 324 mg (65 mg 324 mg PO QDAY 01/12/20 11/25/23 iron) tablet,delayed release vit no.95-ferrous 1 tab PO QDAY 01/12/2011/07 fumarate 28 mg-folic acid 800 mcg tablet () insulin aspart U-100 100 unit/mL 34 unit subcut TID 10/09/23 (3 mL) subcutaneous pen (Novolog FlexPen U-100 Insulin aspart) insulin detemir U-100 100 unit/mL 52 unit subcut QDAY 10/09/23 10/09/23 (3 mL) subcutaneous pen (Levemir FlexPen) insulin detemir U-100 100 unit/mL 52 unit subcut QPM 0 10/09/23 10/09/23 (3 mL) subcutaneous pen (Levemir FlexPen) insulin aspart U-100 100 unit/mL subcut 01/04/24 (3 mL) subcutaneous pen (Novolog FlexPen U-100 Insulin aspart) levothyroxine 100 mcg tablet mcg 01/04/24 Previous Rx's ?Medication ?Instructions ?Recorded fluconazole 150 mg tablet 150 mg PO QDAY 1 dose #1 tab 11/25/23 acetaminophen 300 mg-codeine 15 mg 1 tab PO Q12H PRN p ain #14 tabs 01/07/24 tablet ibuprofen 800 mg tablet 800 mg PO Q8H PRN pain #30 t abs 01/07/24 Allergies Allergy/AdvReac Type Severity Reaction Status Date / Time No Known Allergies Allergy Verified 05/18/25 17:51 Review of Systems Review of Systems Systems Reviewed: All systems reviewed, normal except as documented Constitutional Constitutional: Reports system reviewed and no additional complaints, except as documented, Denies fever(s) and Denies headache(s) ENT Ears, Nose, Mouth, and Throat: Denies disequilibrium and Denies headache(s) Cardiovascular Cardiovascular: Reports system reviewed and no additional complaints, except as documented, Denies chest pain and Denies dyspnea Respiratory Respiratory: Reports system reviewed and no additional complaints, except as documented, Denies cough and Denies dyspnea Gastrointestinal Gastrointestinal: Reports system reviewed and no additional complaints, except as documented, Denies abdominal pain, Denies nausea and Denies vomiting Musculoskeletal Musculoskeletal: Reports as per HPI, Reports arthralgias and Reports radiating pain into limb Neurologic Neurologic: Reports system reviewed and no additional complaints, except as documented, Denies confusion, Denies disequilibrium and Denies headache(s) Psychiatric Psychiatric: Denies confusion Past Medical History Past Medical History NEUROLOGIC: Negative Neurological Disorders or Seizures CARDIAC: Negative Cardiac Disorders or Congestive Heart Failure RESPIRATORY: Negative Chronic Obstructive Pulmonary Disease (COPD) GASTROINTESTINAL: Positive Gall Bladder Disease; Negative Gastrointestinal Disorders, Hepatitis or Colorectal Cancer GENITOURINARY: Negative Genitourinary Disorders, Renal Disease or Prostate Cancer REPRODUCTIVE: Positive Previous Pregnancies (X2); Negative Breast Cancer, Endometriosis, Pelvic Inflammatory Disease, Testicular Cancer or Uterine Prolapse MUSCULOSKELETAL: Negative Musculoskeletal Disorders or Bone Cancer ENDOCRINE: Positive Endocrine Disorders and Hypothyroidism; Negative Diabetes Mellitus Type 1, Diabetes Mellitus Type 2, Hypoglycemia, Hyperthyroidism, Parathyroid Disease, Pituitary Disease, Systemic Lupus Erythematosus, Syndrome of Inappropriate Antidiuretic Hormone (SIADH) or Graves' Disease HEMATOLOGIC: Negative Blood Disorders OTHER HISTORY: Positive Hospitalization (CHILDBIRTH AND CHOLECYSTECTOMY); Negative Autoimmune Disease, Down Syndrome, Developmental Delay, Shingles, Falls, Blood Transfusions, Blood Transfusion Reaction, Anesthesia Reactions, Organ Transplant, Chemotherapy, Radiation Therapy, Hyperbaric Therapy, MRSA, VRSA, Vancomycin-Resistant Enterococci, Human Immunodeficiency Virus (HIV), Chicken Pox, Measles, Mumps, Rubella ([place] Measles), Pertussis, Clostridium Difficile, Cancer, Breast Cancer, Cervical Cancer, Colorectal Cancer, Lung Cancer, Ovarian Cancer, Prostate Cancer or Testicular Cancer Family History FAMILY HISTORY: Negative Family Psychiatric Problems, Family Respiratory Dis orders, Family Cardiac Disorders, Family Gastrointestinal Problems, Family Cancer, Family Surgery or Family Anesthesia Reaction Surgical History SURGICAL: Positive Abdominal Surgery (GALL STONES) and Section (2020); Negative Neurologic Surgery, Brain Shunt, Mastectomy, Lumpectomy, Hysterectomy, Tubal Ligation or Organ Transplant Social History SMOKING STATUS: Never smoker ED Exam General Limitations: Present no limitations General appearance: Present alert and in no apparent distress Head Head exam: Present atraumatic Eye Eye exam: Present normal appearance, PERRL and EOMI ENT ENT exam: Present normal exam, normal oropharynx and mucous membranes moist Neck Neck exam: Present normal inspection, full ROM and trachea midline Chest Chest inspection: Present normal inspection and symmetric chest wall rise Respiratory Respiratory exam: Present normal lung sounds bilaterally Cardiovascular Cardiovascular exam: Present regular rate, normal rhythm and normal heart sounds Abdominal Exam Abdominal exam: Present soft and normal bowel sounds Extremities Exam Extremities exam: Present normal inspection and full ROM Back Exam Back exam: Present normal inspection and full ROM Neurological Exam Neurological exam: Present alert, oriented X3 and CN II-XII intact Psychiatric Psychiatric exam: Present normal affect and normal mood Skin Skin exam: Present warm, dry, intact and normal color Course Quality Measures none Orders Category Date Time Status US venous doppler LE LT Stat Exams 05/18/25 18:39 Completed Acetaminophen Tab [Tylenol ES Tab] Med 05/18/25 20:12 Discontinued 1,000 mg PO X1 ONE CYCLObenzaPRINE [Flexeril] Med 05/18/25 20:12 Discontinued 5 mg PO X1 ONE Vital Signs Vital signs: Vital Signs Temperature 98.1 F 05/18/25 18:23 Pulse Rate 100 05/18/25 18:23 Respiratory Rate 18 05/18/25 18:23 Blood Pressure 104/71 05/18/25 18:23 Pulse Oximetry (%) 98 05/18/25 18:23 Oxygen Delivery Method Room Air 05/18/25 18:23 O2 at 98% on RA and WNLs Extremity Problem MDM Narrative MDM Narrative:: 29F with history of DM presents to ED with LLE pain w/o fall/trauma. Patient thinks she may have strained it. Patient is 6 months . Physical exam reveals no obvious LLE swelling. Skin is warm. ROM and gait normal. Patient is afebrile, calm, and alert. US no DVT. Meds and rehab/pre vocational counselor given. Patient data External records reviewed:: [facility] previous records Clinical information provided by:: patient Social determinants that could affect healthcare access:: none Patient has the following chronic illnesses:: DM How is presenting disease/condition affected by chronic disease/condition?: exacerbated by Evaluation data The following diagnostics were reviewed and interpreted by me:: radiology exam(s) Lab and/or radiology exams considered but not ordered:: ordered Interpretation Summary: above Medications / Prescriptions Medications or Prescriptions considered but not ordered:: ordered Medication administrations:: Medication Administration History Discontinued Medications Acetaminophen (Acetaminophen 500 Mg Tablet) 1,000 mg PO X1 ONE Stop: 05/18/25 20:13 Last Admin: 05/18/25 20:25 Dose: 1,000 mg Documented By: DREA Cyclobenzaprine HCl (Cyclobenzaprine 5 Mg Tablet) 5 mg PO X1 ONE Stop: 05/18/25 20:13 Last Admin: 05/18/25 20:25 Dose: 5 mg Documented By: DREA above Consultations Consultation(s) initiated? (list below): No Diagnosis Extremity Problem Differential Diagnosis: herpes zoster, gout, cellulitis, s uperficial thrombophlebitis, deep venous thrombosis of upper extremity, lower extremity edema, deep vein thrombosis of lower extremity and other (muscle strain) Most likely diagnosis given after review of the tests above:: muscle strain Admission Indicated Admission indicated?: not indicated Admission Request Was there a request for admission?: No Disposition Plan Disposition Plan: Discharge Discharge Attestation Discharge Attestation: The patient and all family members were given an opportunity to ask questions and understood the discharge instructions. Discharge instructions specifically effects, indications for sooner follow up or return to the emergency department, and the expected course of current diagnosis. Patient condition: Stable Discharge Plan Plan Patient Disposition: HOME (Self Care) Discharge Disposition comment: Stable Prescriptions/Referrals Prescriptions/Med Rec: No Action ferrous sulfate 324 mg (65 mg iron) Tablet,Delayed Release (Dr/Ec) 324 mg PO QDAY PNV no.95-ferrous fumarate-FA [] 28 mg iron- 800 mcg Tablet 1 tab PO QDAY fluconazole 150 mg tablet 150 mg PO QDAY Qty: 1 0RF Rx Instructions: administer on day 1 of therapy Levemir FlexPen 100 unit/mL (3 mL) Insulin Pen 52 unit SUBCUT QDAY Levemir FlexPen 100 unit/mL (3 mL) Insulin Pen 52 unit SUBCUT QPM insulin aspart U-100 [Novolog FlexPen U-100 Insulin] 100 unit/mL (3 mL) Insulin Pen 34 unit SUBCUT TID Rx Instructions: 34units with meals levothyroxine 100 mcg tablet Patient Comments: take 1 tablet by mouth every morning ON AN EMPTY STOMACH insulin aspart U-100 [Novolog FlexPen U-100 Insulin] 100 unit/mL (3 mL) insulin pen SUBCUT Patient Comments: inject 34 units BEFORE BREAKFAST, 34 UNITS BEFORE LUNCH, AND 40 UNITS BEFORE DINNER acetaminophen-codeine 300-15 mg tablet 1 tab PO Q12H PRN (Reason: pain) Qty: 14 0RF ibuprofen 800 mg tablet 800 mg PO Q8H PRN (Reason: pain) Qty: 30 0RF Referrals: Villa Kulkarni MD [Primary Care Provider] - In 1 week Problem List Clinical Impression: Muscle strain Patient/Caregiver Discharge Instructions Education Materials: ED Muscle Strain, Extremity Additional Instructions: Please follow-up with PCP within 24-48 hours and return immediately if symptoms worsen. If problem persists, recommend outpatient PT and/or MRI follow-up. In the meantime, rest, use ice/heat, and/or compression. Print Language: [place] Islander Stand Alone Forms: Work/School Release, Patient Portal Info Letter PA/YARD SUPERVISOR Supervising Physician PA/YARD SUPERVISOR Supervising Physician: Dr. Wong
[2025-05-18] MEDS: ACETAMINOPHEN 500 MG TABLET 1000 MG PO (20:25)
== END 2025-05-18 20:29 | disposition home or self-care (01) ==
PROVIDERS: Emergency Provider Emergency Medicine; PCP Family Medicine
DX: O9A.219 Injury, poisoning and certain other consequences of external causes complicating pregnancy, unspecified trimester (principal); S86.912A Strain of unspecified muscle(s) and tendon(s) at lower leg level, left leg, initial encounter; X58.XXXA Exposure to other specified factors, initial encounter; O24.119 Pre-existing type 2 diabetes mellitus, in pregnancy, unspecified trimester
CPT/HCPCS: 93971; 99283; A9270

== ENCOUNTER 2025-05-30 11:33 | Observation (INO) | payer MEDICAID, SELFPAY ==
[2025-05-30 11:45] VITALS: BP 114/66; PULSE 88; RESP 17; RESP 98; TEMP 36.8; BMI 36.5
[2025-05-30 11:57] VITALS: BP 114/66; PULSE 88
[2025-05-30] MEDS: ONDANSETRON INJ 2 MG/ML INJ 2 ML 4 MG IVP (13:03)
[2025-05-30 13:11] LABS: Basophils # (Auto) 0.0 Thou/mm3 (0.0-0.2); Basophils % (Auto) 0 % (0-2.5); Eosinophils # (Auto) 0.1 Thou/mm3 (0.0-0.5); Eosinophils % (Auto) 1 % (0-10); Hematocrit 34.4 % (36.0-46.0); Hemoglobin 11.9 g/dL (12.0-16.0); Immature Granulocytes Auto 0.03 Thou/mm3 (0.00-0.00); Lymphocytes # (Auto) 1.5 Thou/mm3 (1.0-4.8); Lymphocytes % (Auto) 22 % (10-50); Mean Corpuscular HGB Conc 34.6 g/dl (31.0-37.0); Mean Corpuscular Hemoglobin 30.2 pg (25.0-35.0); Mean Corpuscular Volume 87 fL (80-100); Monocytes # (Auto) 0.3 Thou/mm3 (0.0-0.8); Monocytes % (Auto) 5 % (0-12); Neutrophils # (Auto) 4.6 Thou/mm3 (1.8-7.7); Neutrophils % (Auto) 71 % (37-80); Nucleated Red Blood Cell # 0.00 Thou/mm3 (0.00-0.00); Nucleated Red Blood Cell % 0 /100 WBC (0); Platelet Count 228 Thou/mm3 (140-440); RDW Standard Deviation 40.4 fL (36.4-46.3); Red Blood Count 3.94 Miln/mm3 (4.00-5.20); White Blood Count 6.5 Thou/mm3 (3.6-11.0)
[2025-05-30 13:40] LABS: Alanine Aminotransferase < 7 U/L (10-49); Albumin, Serum 3.9 gm/dL (3.5-5.0); Albumin/Globulin Ratio 1.6 (1.2-2.2); Alkaline Phosphatase 81 U/L (46-116); Amylase 39 U/L (30-118); Anion Gap 13 (7-16); BUN/Creatinine Ratio 18 Ratio (12-20); Bilirubin,Total 0.3 mg/dL (0.3-1.2); Blood Urea Nitrogen 9 mg/dL (9-23); Calcium 9.4 mg/dL (8.3-10.6); Calcium (Corrected) 9.5 mg/dL (8.5-10.1); Carbon Dioxide 18.7 mMol/L (20.0-31.0); Chloride 102 mMol/L (98-107); Creatinine (Component) 0.5 mg/dL (0.6-1.3); Estimated Creatinine Clearance 203.9 mL/min (>60); Globulin 2.4 gm/dL (2.3-3.5); Glucose 195 mg/dL (74-106); Lipase 25 U/L (12-53); Osmolality,Calculated 271 (275-295); Potassium 3.7 mMol/L (3.4-5.1); Sodium 134 mMol/L (136-145); Total Protein 6.3 gm/dL (5.7-8.2); eGFR > 60 See Note
[2025-05-30 13:50] LABS: Aspartate Amino Transferase < 8 U/L (0-34)
[2025-05-30 14:47] LABS: Glucose Estimated Average 192 mg/dL (80-131); Hemoglobin A1C 8.3 % Hgb (4.8-6.0)
[2025-05-30 14:56] LABS: Collection Type, Urine Clean Catch
[2025-05-30 15:03] LABS: Bilirubin,Urine Negative (Negative); Blood,Urine Negative (Negative); Clarity,Urine Clear (Clear/Hazy); Color,Urine Lt-Yellow (Lt Yel-Yel); Glucose, Urine 4+ (Negative); Ketones,Urine 4+ (Negative); Leukocyte Esterase,Urine Positive (Negative); Nitrite,Urine Negative (Negative); PH,Urine 6.0 (5.0-7.0); Protein,Urine Negative (Neg - Trace); RBC,Urine 13 /hpf (0-3); Specific Gravity,Urine 1.035 (1.001-1.035); Squamous Epithelial Cell,Urine 10 /hpf (0-5); Urobilinogen,Urine Negative mg/dL (0.0-1.0); WBC,Urine 1 /hpf (0-5)
--- NOTE | 2025-05-30 15:22 | XR_ITS ---
Examination: Complete OB ultrasound greater than 14 weeks Date and time of exam: May 30, 2025 1556 hours INDICATIONS: Size dates discrepancy, large for gestational age Findings: Viable intrauterine single fetus with single amniotic sac presentation breech Cardiac motion 140 BPM spine anterior Placental fundal posterior grade 1. Umbilical cord insertion seen. Amniotic fluid index 18 cm Cervix 3.7 cm closed Ovaries obscured by the fetus.. Composite estimated gestational age based on BPD, head circumference, abdominal circumference, femur length is 29 weeks 0 days Estimated weight 1425 g. Survey of intracranial anatomy, spinal anatomy, abdominal anatomy, four-chamber heart performed with no abnormalities identified. Impression: Viable intrauterine gestation breech presentation.
[2025-05-30 15:28] LABS: COVID-19 Antigen (In-House) Negative (Negative); Influenza A Ag Negative; Influenza B Ag Negative
--- NOTE | 2025-05-30 16:22 | PD.ADDPROG ---
Addendum Progress Note Addendum Date of report being addended: 05/30/25 Narrative: The patient is a 29-year-old -2-0-3 at 26 weeks who presented through the ER with a very sore throat. She was having some cramping and so they brought her up to labor and delivery to be evaluated. She sees Dr. Ardon in [place] but wants to deliver here. She has a history of 1 vaginal livery and 2 C-sections. Her vaginal delivery was 15 years ago when she herself was 13 years old, the baby weighed about 7-1/2 pounds per patient she states she was not diabetic with that .. She then had a with Dr. Schultz here at 36 weeks .The op report is on the chart and according to Dr. Schultz's notes, the baby weighed 11-1/2 pounds at 36 weeks. The was done because the baby did not descend in her pelvis and she had ruptured her membranes. At the same time, he removed her left fallopian tube as it was stuck and had hydrosalpinx suggestive of old PID. The patient then went on to have another delivery and states that she has a 1-year-old at home. Dr. Carranza performed that at [facility] at 34-5/7 weeks due to premature rupture of membranes. The baby weighed 8 pounds. The patient states she is done having babies and would like her remaining fallopian tube tied. She is interested in being followed at the [facility] obstetrics clinic. She lives here but works in [place]. 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 She wants to continue to work. Besides a very sore throat, the patient reports feeling feverish but no documented fevers she has some chills some nausea no diarrhea no sick contacts at home no rash. She is an insulin requiring gestational diabetic this taking 20 units of NPH in the morning and 20 units at night. She is taking 20 units of regular in the morning, 10 units at lunch and 18 units at dinner. She states Dr. Ardon has set her up with [facility] to measure her blood sugars. She states [facility] was trying to help her with that and got her sensor but Dr. Ardon wanted her to follow-up with [facility]. As part of her workup today, a hemoglobin A1c was drawn at 8.3. An ultrasound was just performed revealing a live intrauterine with a baby weighing about 3-1/2 pounds and measuring 3 weeks early. The patient states she just saw maternal- medicine specialist at [facility] and had a echocardiogram done. Objective : patient is afebrile her blood pressure is normal her urine reveals 4+ glucose 4+ ketones and some leukocyte Estrace. Her flu swabs are negative COVID is negative Strep A swab pending No significant white count. No elevated liver enzymes. Electrolyte panel within normal limits Patient was given a liter of IV fluids and some Zofran. Her throat is slightly erythematous her tonsils are slightly swollen with minor exudate on the back of her tonsils. heart tones are reactive for 26 weeks. At this point we will give the patient a dose of Rocephin and send the patient home on Keflex. She was given the office number to follow-up so she can be seen at the [facility] OB clinic because she does want to deliver here. She wants her fallopian tube tied she needs to sign tubal ligation papers in the office. She is to call Saturday so we can get a hold of all her records from Dr. Ardon's office. SILVINA Suarez MD
[2025-05-30 16:28] LABS: Strep A Rapid Negative (Negative)
[2025-05-30] MEDS: cefTRIAXone/D5w 1gm IV premix 1 GM/50 ML BAG IV (16:48)
[2025-05-30 17:11] VITALS: BP 104/53; PULSE 91; RESP 16; TEMP 36.6
== END 2025-05-30 17:25 | disposition home or self-care (01) ==
PROVIDERS: Admitting Provider Obstetrics & Gynecology; Visit Provider Obstetrics & Gynecology
DX: O21.2 Late vomiting of pregnancy (principal); O26.893 Other specified pregnancy related conditions, third trimester; R10.9 Unspecified abdominal pain; R50.9 Fever, unspecified; J02.9 Acute pharyngitis, unspecified; O32.1XX0 Maternal care for breech presentation, not applicable or unspecified; Z3A.29 29 weeks gestation of pregnancy; O24.414 Gestational diabetes mellitus in pregnancy, insulin controlled
CPT/HCPCS: 36415; 59025; 59899; 76805; 80053; 81001; 82150; 83036; 83690; 85025; 87502; 87651; 87811; 96374; G0378; J0696; J2405

== ENCOUNTER 2025-06-25 19:21 | Observation (INO) | payer MEDICAID, SELFPAY ==
[2025-06-25 19:35] VITALS: BMI 35.2
[2025-06-25 19:44] VITALS: BP 115/81; PULSE 111; RESP 17; RESP 98; TEMP 36.4
--- NOTE | 2025-06-25 20:24 | XR_ITS ---
Examination: Complete OB ultrasound greater than 14 weeks Date and time of exam: June 25, 2025 2102 hrs. Indications: Onset decreased movement today with brown vaginal discharge Findings: Viable intrauterine single fetus with single amniotic sac presentation cephalic spine anterior Cardiac motion 144 BPM Placenta posterior grade 2. Umbilical cord insertion seen. Amniotic fluid index 18.8 cm Cervix 3.5 cm Ovaries obscured by bowel gas. Composite estimated gestational age based on BPD, head circumference, abdominal circumference, femur length is 33 weeks 0 days Estimated weight 2233 g. Survey of intracranial anatomy, spinal anatomy, abdominal anatomy, four-chamber heart performed with no abnormalities identified. Impression: Viable intrauterine gestation cephalic presentation.
--- NOTE | 2025-06-25 20:24 | XR_ITS ---
Examination: Biophysical profile, ultrasound Date and time of exam: June 25, 20252054 hrs. Indications: Vomiting and brown vaginal discharge beginning today. Technique: Multiple transabdominal sonographic images of the pelvis abdomen obtained. Attention is directed to the breathing movement, gross body movement, amniotic fluid volume and tone. Findings: Amniotic fluid index 18.8 cm Total biophysical profile is 8 of 8. breathing movement is 2. Gross body movement is 2. tone is 2. Qualitative amniotic fluid volume is 2 Impression: Biophysical profile is 8 of 8.
[2025-06-25 20:37] VITALS: PULSE 104; O2SAT 97
[2025-06-25 20:42] VITALS: PULSE 103; O2SAT 97
[2025-06-25 21:05] LABS: Basophils # (Auto) 0.0 Thou/mm3 (0.0-0.2); Basophils % (Auto) 0 % (0-2.5); Eosinophils # (Auto) 0.0 Thou/mm3 (0.0-0.5); Eosinophils % (Auto) 1 % (0-10); Hematocrit 38.9 % (36.0-46.0); Hemoglobin 13.3 g/dL (12.0-16.0); Immature Granulocytes Auto 0.02 Thou/mm3 (0.00-0.00); Lymphocytes # (Auto) 1.4 Thou/mm3 (1.0-4.8); Lymphocytes % (Auto) 27 % (10-50); Mean Corpuscular HGB Conc 34.2 g/dl (31.0-37.0); Mean Corpuscular Hemoglobin 30.0 pg (25.0-35.0); Mean Corpuscular Volume 88 fL (80-100); Monocytes # (Auto) 0.3 Thou/mm3 (0.0-0.8); Monocytes % (Auto) 6 % (0-12); Neutrophils # (Auto) 3.5 Thou/mm3 (1.8-7.7); Neutrophils % (Auto) 66 % (37-80); Nucleated Red Blood Cell # 0.00 Thou/mm3 (0.00-0.00); Nucleated Red Blood Cell % 0 /100 WBC (0); Platelet Count 210 Thou/mm3 (140-440); RDW Standard Deviation 42.2 fL (36.4-46.3); Red Blood Count 4.44 Miln/mm3 (4.00-5.20); White Blood Count 5.3 Thou/mm3 (3.6-11.0)
== END 2025-06-25 22:58 | disposition home or self-care (01) ==
PROVIDERS: Admitting Provider Obstetrics & Gynecology; Visit Provider Obstetrics & Gynecology
DX: O36.8130 Decreased fetal movements, third trimester, not applicable or unspecified (principal); O99.891 Other specified diseases and conditions complicating pregnancy; N89.8 Other specified noninflammatory disorders of vagina; Z3A.33 33 weeks gestation of pregnancy
CPT/HCPCS: 36415; 59025; 59899; 76805; 76819; 85025

== ENCOUNTER 2025-07-06 17:16 | Observation (INO) | payer MEDICAID, SELFPAY ==
[2025-07-06] VITALS (13 sets, daily range): BP systolic 98–123; BP diastolic 51–92; PULSE 91–123; RESP 17–95; TEMP 36.7–36.8; O2SAT 94–99; BMI 34.9
[2025-07-06 18:16] LABS: Collection Type, Urine Clean Catch
[2025-07-06] MEDS: SODIUM CHLORIDE 0.9% 1000 ML 1,000 ML 999 ML IV (18:23)
[2025-07-06] MEDS: INSULIN HUM REGULAR 1 UNIT/0.01 ML (PER UNIT) 3 UNIT SC (18:29)
[2025-07-06 18:39] LABS: Bacteria,Urine Rare; Bilirubin,Urine Negative (Negative); Blood,Urine Negative (Negative); Clarity,Urine Clear (Clear/Hazy); Color,Urine Lt-Yellow (Lt Yel-Yel); Glucose, Urine 4+ (Negative); Ketones,Urine 4+ (Negative); Leukocyte Esterase,Urine Positive (Negative); Nitrite,Urine Negative (Negative); PH,Urine 6.0 (5.0-7.0); Protein,Urine Trace (Neg - Trace); RBC,Urine 4 /hpf (0-3); Specific Gravity,Urine 1.047 (1.001-1.035); Squamous Epithelial Cell,Urine 23 /hpf (0-5); Urobilinogen,Urine Negative mg/dL (0.0-1.0); WBC,Urine 11 /hpf (0-5)
--- NOTE | 2025-07-06 19:32 | ESHP_ITS ---
Documentation for date of: 07/06/25 OB Labor/Induct. HPI History of Present Illness Chief complaint: patient with abdominal pain/ Type 2 DM on 20 in am and 10 in pm Humulin N : 4 Para: 3 Term pregnancies: 0 pregnancies: 3 Living children: 3 History of Abortions: Spontaneous and Elective: 0 History of Vaginal deliveries: 3 History of sections: No History of : No SHASHANK: 08/30/25 History of Present Adequate Care: Yes Narrative: This patient has poorly controlled DM and NST is fine and fhr is category 1 but she is likely in DKA and Int Medicine consult is called for There is no obstetrical problem immediate she has prior c section her management is needed for Diabetes and complication Review of Systems Review of Systems Systems Reviewed: All systems reviewed, normal except as documented Past Medical History Past Medical History ENDOCRINE: Positive Diabetes Mellitus Type 2 (poorly controlled ) Surgical History SURGICAL: Negative Section Meds Home Medications and Allergies Home Medications ?Medication ?Instructions ?Recorded ?Confirmed ?Type vit no.95-ferrous 1 tab PO QDAY 01/12/2006/09 History fumarate 28 mg-folic acid 800 mcg tablet () insulin NPH isoph U-100 human 100 20 unit subcut .am 0 05/30/25 07/06/25 History unit/mL subcutaneous suspension (Humulin N NPH U-100 Insulin (isophane susp)) insulin regular human 100 unit/mL 10 unit subcut QPM 0 05/30/25 07/06/25 History injection solution (Humulin R Regular U-100 Insulin) Allergies Allergy/AdvReac Type Severity Reaction Status Date / Time No Known Allergies Allergy Verified 07/06/25 17:55 OB Exam Physical Exam Vital signs: Temp Pulse Resp BP Pulse Ox 98.2 F 96 20 108/68 98 07/06/25 17:30 07/06/25 18:59 07/06/25 17:30 07/06/25 18:59 07/06/25 19:30 Constitutional Constitutional: mild distress Routine Respiratory Exam Respiratory: Present CTA bilaterally Routine Cardiovascular Exam Cardiovascular: Present RRR Routine Abdominal Exam Abdominal: Present soft and normoactive bowel sounds Detailed Labor and Delivery Exam Comments: pelvic exam deferred / Sc/w dates 32 cm uterus FHR is category 1 uterus is non tender on exam FHRate is cat 1 and Uc are resolving Routine Extremities Exam Extremities: Present full ROM and pulses intact Routine Neurological Exam Neurological: Present alert and oriented X3 Routine Psychiatric Exam Psychiatric: Present normal affect and cooperative OB Results Labs 07/07/25 05:50 07/07/25 05:50 Labs: Urine 07/06/25 Range/Units 17:27 Urine Color Lt-Yellow (Lt Yel-Yel) Urine Clarity Clear (Clear/Hazy) Urine pH 6.0 (5.0-7.0) Ur Specific [place] 1.047 H (1.001-1.035) Urine Protein Trace (Neg - Trace) Urine Glucose (UA) 4+ A (Negative) OB Assessment & Plan Assessment and Plan (1) Insulin dependent type 2 diabetes mellitus: Status: Acute Assessment and plan: Internal medicine consulted . patient needs optimal control. currently poorly controlled (2) Previous delivery affecting : Status: Acute Assessment and plan: not a problem at this time as she is not in laborand is (3) FHR ( heart rate) reactive: Status: Acute Assessment and plan: reactive NST (4) 32 weeks gestation of : Status: Acute (5) Diabetic ketoacidosis associated with type 2 diabetes mellitus: Status: Acute Assessment and plan: Internal medicine consulted . they do not think it is DKA and will be evaluating and managing the DM type 2
[2025-07-06 19:55] LABS: Base Excess, Venous -6 (-3-3); O2 Saturation, Venous 99 % (96-97); PCO2, Venous 34 mmHg (36-56); PO2, Venous 119 mmHg (15-58); pH, Venous 7.34 (7.33-7.66)
[2025-07-06 20:00] LABS: Beta Hydroxybutyrate 2.2 mmol/L (<0.6)
[2025-07-06] MEDS: RINGERS LACTATED 1000 ML 1,000 ML 999 ML IV (20:12)
--- NOTE | 2025-07-06 20:19 | ESCONSULT_ITS ---
HPI Data of Consult Consult date: 07/06/25 Requesting Physician: Atif Solis MD Admitting Provider: Teresa Bello MD Attending Provider: Atif Solis MD Primary Care Provider: Physician No Primary/Family Consult Narrative History of present illness: Patient is 29 year old female at 32 weeks with past medical history of gestational diabetes, insulin-dependent type 2 diabetes and prior hypothyroidism. Presenting Issue: Abdominal pain and hyperglycemia Hospitalist was consulted for diabetes to mellitus management. Evaluation: The patient reports taking 20 units of insulin in the morning and 10 units at night, and noncompliant with daily blood glucose checks. Her typical morning blood glucose is around 120 mg/dL, and her average nightly glucose is about 140 mg/dL. She was diagnosed with Type 2 Diabetes Mellitus 5 years ago, following her third , and has a history of gestational diabetes. The patient was previously on Ozempic, but her treatment was discontinued 2 months ago prior to her fourth . She also has a history of hypothyroidism, for which she was prescribed medication by her primary care provider; however, she is no longer taking any thyroid medication and is uncertain as to why it was stopped. The patient denies experiencing nausea, vomiting, headache, lightheadedness, fever, chills, or any urinary changes at this time. In GUILLOTINE TRIMMER triage patient received 1 L NS, 1 L LR and 3 units of insulin regular Initials lab significant for blood glucose 254, A1c 9.6 beta-hydroxybutyrate 2.2. UA 4+ glucose and 4+ ketones (similar to prior OB appointment) 4 RBC, 11 WBC. Past OB History: 2C-section, 1 vaginal delivery, macrosomic baby, PPRM Family History: Noncontributory Surgical History: Cholecystectomy Social History:Denies history of smoking, denies current alcohol use, denies recreational drug use Current Medication;insulin NPH 20 units, insulin regular 10 unit, , vitamin D cc:: cc: Atif Solis MD Exam Vital Signs Temp Pulse Resp BP Pulse Ox 98.2 F 91 20 123/67 98 07/06/25 17:30 07/06/25 19:55 07/06/25 17:30 07/06/25 19:55 07/06/25 19:40 Constitutional Constitutional: no acute distress, average body habitus and cooperative Routine HEENT Exam Head: Present normocephalic and atraumatic Routine Respiratory Exam Respiratory: Present chest non-tender, lungs clear, normal breath sounds and no resp distress Routine Cardiovascular Exam Cardiovascular: Present RRR, S1 and S2 Routine Abdominal Exam Abdominal: Present soft and normoactive bowel sounds Routine Extremities Exam Extremities: Present full ROM and normal capillary refill Routine Neurological Exam Neurological: Present alert and oriented X3 Routine Psychiatric Exam Psychiatric: Present normal affect and normal thought process Results Labs 07/07/25 01:38 Labs: Urine 07/06/25 Range/Units 17:27 Urine Color Lt-Yellow (Lt Yel-Yel) Urine Clarity Clear (Clear/Hazy) Urine pH 6.0 (5.0-7.0) Ur Specific [place] 1.047 H (1.001-1.035) Urine Protein Trace (Neg - Trace) Urine Glucose (UA) 4+ A (Negative) ABG Interpretation ABG results: 07/06/25 19:40 VBG pH 7.34 VBG pCO2 34 L VBG pO2 119 H VBG Base Excess -6 L Quality Measures Quality Measures none Medications Home Medications and Allergies Home Medications ?Medication ?Instructions ?Recorded ?Confirmed ?Type vit no.95-ferrous 1 tab PO QDAY 01/12/20 09 History fumarate 28 mg-folic acid 800 mcg tablet () insulin NPH isoph U-100 human 100 20 unit subcut .am 0 05/30/25 07/06/25 History unit/mL subcutaneous suspension (Humulin N NPH U-100 Insulin (isophane susp)) insulin regular human 100 unit/mL 10 unit subcut QPM 0 05/30/25 07/06/25 History injection solution (Humulin R Regular U-100 Insulin) Allergies Allergy/AdvReac Type Severity Reaction Status Date / Time No Known Allergies Allergy Verified 07/06/25 17:55 Visit Medications Dextrose (Dextrose 50%-Water Inj 50 Ml Syringe) 25 ml IV Q15MIN PRN PRN Reason: BG 50-70 responsive npo pt Stop: 08/05/25 20:08 Dextrose (Dextrose 50%-Water Inj 50 Ml Syringe) 50 ml IV Q15MIN PRN PRN Reason: BG <50 OR BG <70 & pt unresponsive Stop: 08/05/25 20:08 Glucagon (Glucagon Inj 1 Mg Vial) 1 mg IM Q15MIN PRN PRN Reason: BG <70, and no IV access Lactated Ringer's (Lactated Ringers) 1,000 mls @ 999 mls/hr IV .Q1H1M ONE Stop: 07/06/25 21:06 Last Admin: 07/06/25 20:12 Dose: 999 mls/hr Non-Formulary Medication (Insulin Glargine) 20 units SC QPM JEFERSON Stop: 08/05/25 20:59 Discontinued Medications Sodium Chloride (Ns) 1,000 mls @ 999 mls/hr IV .Q1H1M ONE Stop: 07/06/25 19:10 Last Admin: 07/06/25 18:23 Dose: 999 mls/hr Insulin Human Regular (Insulin Hum Regular 1 Unit/0.01 Ml (Per Unit)) 3 unit SC X1 ONE Stop: 07/06/25 18:10 Last Admin: 07/06/25 18:29 Dose: 3 unit Assessment & Plan Plan Patient is 29 year old female at 32 weeks with past medical history of gestational diabetes, insulin-dependent type 2 diabetes and prior hypothyroidism. Hospitalist team consulted for type 2 diabetes manage #Insulin-dependent type 2 diabetes #Metabolic acidosis with respiratory alkalosis #Ketonemia #3rd trimester History of DM for which she takes Humulin 20 units in the morning and 10 units at night. Patient presented with glucose of 288 and +4 ketones in her urine. A1c 9.6 increased from 8.3 in 05/30/25 GUILLOTINE TRIMMER was concerned for possible DKA however upon evaluation low suspicion for DKA as current BG 254, VBG ph 6.34, pCO2 34, bicarb 16. Additionally patient does not report nausea, vomiting, shortness of breath. Upon physical exam there is no sign for significant dehydration or lethargy. Patient received KCl 10 mg, insulin regular 3 units, 2 L of IV fluids on admission. Per our recommendation pt has already receive 30 units of degludec and 9 units of lispro, 2 liters L5. -Continue IV hydration -Started insulin sliding scale -Potassium 20 mEq at 75 cc/hr -Insulin degludec 30 units -Follow-up with BMP and CBC -Monitor for signs of DKA -Recommend starting patient on 30units of insulin glargine QAM along with sliding scale insulin with Lispro -Recommend frequent blood glucose checks at least 5 times daily -Follow up with PCP for dose adjustments. Patient seen and assessed under supervision of attending physician Dr.Alhalaibeh Shari Trinidad MD PGY-1, Internal Medicine Please note: this document was transcribed using voice recognition technology; minor inaccuracies may be present. Attending Provider Attestation/Addendum After examination of the patient and review of the clinical data I feel that this patient needs admission to the hospital for further treatment/evaluation. Plan of care discussed with patient and is in agreement. I Atif Solis MD, attest that I was physically present for johnson portions of evaluation, and examined patient, labs and imagings and plan of care were discussed with IM residents team, and I agree with the findings and plans documented above.
[2025-07-06 20:24] LABS: Glucose Estimated Average 229 mg/dL (80-131); Hemoglobin A1C 9.6 % Hgb (4.8-6.0)
[2025-07-06 20:28] LABS: Alanine Aminotransferase 10 U/L (10-49); Albumin, Serum 3.8 gm/dL (3.5-5.0); Albumin/Globulin Ratio 1.4 (1.2-2.2); Alkaline Phosphatase 148 U/L (46-116); Anion Gap 15 (7-16); Aspartate Amino Transferase 12 U/L (0-34); BUN/Creatinine Ratio 14 Ratio (12-20); Bilirubin,Total 0.4 mg/dL (0.3-1.2); Blood Urea Nitrogen 7 mg/dL (9-23); Calcium 9.4 mg/dL (8.3-10.6); Calcium (Corrected) 9.6 mg/dL (8.5-10.1); Carbon Dioxide 16.1 mMol/L (20.0-31.0); Chloride 98 mMol/L (98-107); Creatinine (Component) 0.5 mg/dL (0.6-1.3); Estimated Creatinine Clearance 206.1 mL/min (>60); Globulin 2.7 gm/dL (2.3-3.5); Glucose 254 mg/dL (74-106); Osmolality,Calculated 265 (275-295); Potassium 3.6 mMol/L (3.4-5.1); Sodium 129 mMol/L (136-145); Total Protein 6.5 gm/dL (5.7-8.2); eGFR > 60 See Note
[2025-07-06] MEDS: INSULIN DEGLUDEC 5 UNIT/0.05 ML (PER 5 UNITS) 20 UNIT SC (20:33)
[2025-07-06] MEDS: POTASSIUM CHL 10 mEq IVPB 10 MEQ/100 ML BAG 100 MEQ IV ×2 (21:17→22:30)
[2025-07-06] MEDS: INSULIN LISPRO (AdmeLOG) 1 UNIT/0.01 ML UNIT SC (22:12)
[2025-07-06] MEDS: INSULIN LISPRO (AdmeLOG) 1 UNIT/0.01 ML UNIT 2 UNIT SC (23:16)
[2025-07-07] VITALS (24 sets, daily range): BP systolic 90–111; BP diastolic 52–72; PULSE 79–94; RESP 16–18; TEMP 36.6–37.1; O2SAT 80–99; BMI 34.8
[2025-07-07 00:04] LABS: Anion Gap 14 (7-16); BUN/Creatinine Ratio 10 Ratio (12-20); Blood Urea Nitrogen 5 mg/dL (9-23); Calcium 8.9 mg/dL (8.3-10.6); Carbon Dioxide 16.9 mMol/L (20.0-31.0); Chloride 103 mMol/L (98-107); Creatinine (Component) 0.5 mg/dL (0.6-1.3); Estimated Creatinine Clearance 206.1 mL/min (>60); Glucose 266 mg/dL (74-106); Osmolality,Calculated 274 (275-295); Potassium 3.9 mMol/L (3.4-5.1); Sodium 134 mMol/L (136-145); eGFR > 60 See Note
[2025-07-07] MEDS: RINGERS LACTATED 1000 ML 1,000 ML 999 ML IV (00:44)
[2025-07-07] MEDS: RINGERS LACTATED 1000 ML 2,000 ML 150 ML IV (01:38)
[2025-07-07 02:03] LABS: Anion Gap 11 (7-16); BUN/Creatinine Ratio 10 Ratio (12-20); Blood Urea Nitrogen < 5 mg/dL (9-23); Calcium 8.8 mg/dL (8.3-10.6); Carbon Dioxide 19.9 mMol/L (20.0-31.0); Chloride 104 mMol/L (98-107); Creatinine (Component) 0.5 mg/dL (0.6-1.3); Estimated Creatinine Clearance 206.1 mL/min (>60); Glucose 231 mg/dL (74-106); Osmolality,Calculated 274 (275-295); Potassium 3.8 mMol/L (3.4-5.1); Sodium 135 mMol/L (136-145); eGFR > 60 See Note
[2025-07-07] MEDS: INSULIN DEGLUDEC 5 UNIT/0.05 ML (PER 5 UNITS) 10 UNIT SC (02:56)
[2025-07-07] MEDS: INSULIN LISPRO (AdmeLOG) 1 UNIT/0.01 ML UNIT 3 UNIT SC (05:38)
--- NOTE | 2025-07-07 05:46 | PC.NURSE ---
[id number] Trinidad regarding patients BG of 223, no new orders received, notified MD if she would like to continue BS check Q1 hour. MD to consult team and call RN [phone] Dr. Trinidad called RN, orders to start BG Q6 start now [id number] Dr. Trinidad called RN and ordered to give 3 U lispro x1
[2025-07-07 06:27] LABS: Basophils # (Auto) 0.0 Thou/mm3 (0.0-0.2); Basophils % (Auto) 0 % (0-2.5); Eosinophils # (Auto) 0.0 Thou/mm3 (0.0-0.5); Eosinophils % (Auto) 1 % (0-10); Hematocrit 33.4 % (36.0-46.0); Hemoglobin 11.1 g/dL (12.0-16.0); Immature Granulocytes Auto 0.01 Thou/mm3 (0.00-0.00); Lymphocytes # (Auto) 1.4 Thou/mm3 (1.0-4.8); Lymphocytes % (Auto) 37 % (10-50); Mean Corpuscular HGB Conc 33.2 g/dl (31.0-37.0); Mean Corpuscular Hemoglobin 29.3 pg (25.0-35.0); Mean Corpuscular Volume 88 fL (80-100); Monocytes # (Auto) 0.3 Thou/mm3 (0.0-0.8); Monocytes % (Auto) 8 % (0-12); Neutrophils # (Auto) 1.9 Thou/mm3 (1.8-7.7); Neutrophils % (Auto) 53 % (37-80); Nucleated Red Blood Cell # 0.00 Thou/mm3 (0.00-0.00); Nucleated Red Blood Cell % 0 /100 WBC (0); Platelet Count 163 Thou/mm3 (140-440); RDW Standard Deviation 42.5 fL (36.4-46.3); Red Blood Count 3.79 Miln/mm3 (4.00-5.20); White Blood Count 3.7 Thou/mm3 (3.6-11.0)
[2025-07-07 06:42] LABS: Anion Gap 12 (7-16); BUN/Creatinine Ratio 10 Ratio (12-20); Blood Urea Nitrogen < 5 mg/dL (9-23); Calcium 8.6 mg/dL (8.3-10.6); Carbon Dioxide 20.0 mMol/L (20.0-31.0); Chloride 103 mMol/L (98-107); Creatinine (Component) 0.5 mg/dL (0.6-1.3); Estimated Creatinine Clearance 206.1 mL/min (>60); Glucose 220 mg/dL (74-106); Osmolality,Calculated 274 (275-295); Potassium 3.8 mMol/L (3.4-5.1); Sodium 135 mMol/L (136-145); eGFR > 60 See Note
[2025-07-07] MEDS: INSULIN LISPRO (AdmeLOG) 1 UNIT/0.01 ML UNIT SC ×3 (08:08→18:26)
--- NOTE | 2025-07-07 08:17 | PD.RESPRO ---
Documentation for date of: 07/07/25 Exam Vital Signs Temp Pulse Resp BP Pulse Ox O2 Del Method 98.7 F 90 16 111/72 98 Room Air 07/07/25 05:15 07/07/25 05:13 07/07/25 05:15 07/07/25 05:13 07/07/25 05:46 07/07/25 05:15 Objective Labs 07/07/25 05:50 07/07/25 05:50 Labs: Laboratory Results - last 24 hr 07/06/25 07/06/25 07/06/25 17:27 19:40 23:34 WBC RBC Hgb Hct MCV MCH MCHC RDW Std Deviation Plt Count Neut % (Auto) Lymph % (Auto) [place] % (Auto) Eos % (Auto) Baso % (Auto) Neut # (Auto) Lymph # (Auto) [place] # (Auto) Eos # (Auto) Baso # (Auto) Immature Gran # (Auto) Absolute Nucleated RBC Immature Gran % Nucleated RBC % VBG pH 7.34 VBG pCO2 34 L VBG pO2 119 H VBG O2 Sat (Suresh) 99 H VBG Base Excess -6 L Sodium 129 L 134 L Potassium 3.6 3.9 Chloride 98 103 Carbon Dioxide 16.1 L 16.9 L Anion Gap 15 14 BUN 7 L 5 L Creatinine 0.5 L 0.5 L Estim Creat Clear Calc 206.1 206.1 eGFR > 60 > 60 BUN/Creatinine Ratio 14 10 L Glucose [address] Glu mg/dL 229 H Hemoglobin A1c 9.6 H Calculated Osmolality 265 L 274 L Calcium 9.4 8.9 Corrected Calcium 9.6 Total Bilirubin 0.4 AST 12 ALT 10 Alkaline Phosphatase 148 H Total Protein 6.5 Albumin 3.8 Globulin 2.7 Albumin/Globulin Ratio 1.4 Beta-Hydroxybutyrate/Acetoacetate 2.2 H Ur Collection Type Clean Catch Urine Color Lt-Yellow Urine Clarity Clear Urine pH 6.0 Ur Specific [place] 1.047 H Urine Protein Trace Urine Glucose (UA) 4+ A Urine Ketones 4+ A Urine Blood Negative Urine Nitrite Negative Urine Bilirubin Negative Urine Urobilinogen (Auto) Negative Ur Leukocyte Esterase Positive Urine RBC 4 H Urine WBC 11 H Ur Squamous Epith Cells 23 H Urine Bacteria Rare 07/07/25 07/07/25 01:38 05:50 WBC 3.7 RBC 3.79 L Hgb 11.1 L Hct 33.4 L MCV 88 MCH 29.3 MCHC 33.2 RDW Std Deviation 42.5 Plt Count 163 D Neut % (Auto) 53 Lymph % (Auto) 37 [place] % (Auto) 8 Eos % (Auto) 1 Baso % (Auto) 0 Neut # (Auto) 1.9 Lymph # (Auto) 1.4 [place] # (Auto) 0.3 Eos # (Auto) 0.0 Baso # (Auto) 0.0 Immature Gran # (Auto) 0.01 H Absolute Nucleated RBC 0.00 Immature Gran % 0 Nucleated RBC % 0 VBG pH VBG pCO2 VBG pO2 VBG O2 Sat (Suresh) VBG Base Excess Sodium 135 L 135 L Potassium 3.8 3.8 Chloride 104 103 Carbon Dioxide 19.9 L 20.0 Anion Gap 11 12 BUN < 5 L < 5 L Creatinine 0.5 L 0.5 L Estim Creat Clear Calc 206.1 206.1 eGFR > 60 > 60 BUN/Creatinine Ratio 10 L 10 L Glucose [address] Glu mg/dL Hemoglobin A1c Calculated Osmolality 274 L 274 L Calcium 8.8 8.6 Corrected Calcium Total Bilirubin AST ALT Alkaline Phosphatase Total Protein Albumin Globulin Albumin/Globulin Ratio Beta-Hydroxybutyrate/Acetoacetate Ur Collection Type Urine Color Urine Clarity Urine pH Ur Specific [place] Urine Protein Urine Glucose (UA) Urine Ketones Urine Blood Urine Nitrite Urine Bilirubin Urine Urobilinogen (Auto) Ur Leukocyte Esterase Urine RBC Urine WBC Ur Squamous Epith Cells Urine Bacteria ABG Interpretation ABG results: 07/06/25 19:40 VBG pH 7.34 VBG pCO2 34 L VBG pO2 119 H VBG Base Excess -6 L Quality Measures Quality Measures none Assessment & Plan Assessment Current Active Medications: Generic Name Dose Route Start Last Admin Trade Name Freq PRN Reason Stop Dose Admin Dextrose 25 ml 07/06/25 20:09 Dextrose 50%-Water Inj 50 Ml Syringe IV 08/05/25 20:08 Q15MIN PRN BG 50-70 responsive npo pt Dextrose 50 ml 07/06/25 20:09 Dextrose 50%-Water Inj 50 Ml Syringe IV 08/05/25 20:08 Q15MIN PRN BG <50 OR BG <70 & pt unresponsive Glucagon 1 mg 07/06/25 20:18 Glucagon Inj 1 Mg Vial IM Q15MIN PRN BG <70, and no IV access Lactated Ringer's 2,000 mls @ 150 mls/hr 07/07/25 00:25 07/07/25 01:38 Lactated Ringers IV 07/07/25 13:44 150 mls/hr .[id number] ONE Administration Insulin Degludec 30 unit 07/07/25 21:00 Insulin Degludec 5 Unit/0.05 Ml (Per 5 Units) SC 08/06/25 20:59 QPM JEFERSON Insulin Human Lispro 0 unit 07/07/25 06:27 07/07/25 08:08 Insulin Lispro (Admelog) 1 Unit/0.01 Ml Unit SC 08/05/25 21:54 4 unit ACHS [facility] Administration Protocol
[2025-07-07 08:22] LABS: Free T4 (Free Thyroxine) 0.95 ng/dL (0.89-1.76); Thyroid Stimulating Hormone 2.93 uIU/mL (0.55-4.78)
[2025-07-07] MEDS: RINGERS LACTATED 1000 ML 1,000 ML 150 ML IV ×2 (08:32→17:46)
[2025-07-07] MEDS: INSULIN HUM REGULAR 1 UNIT/0.01 ML (PER UNIT) 10 UNIT SC (09:31)
--- NOTE | 2025-07-07 11:34 | PD.RESEVENT ---
Documentation for date of: 07/07/25 Event Note Event Note: Hospitalist night team was originally consulted for this patient due to concern for possible DKA. Patient's morning labs and symptoms were more consistent with hyperglycemia. Per OBGYN, consult cancelled at this time. Patient's plan and care discussed with my attending, Dr. Levine and my senior Dr Soto. Say Amor, PGY-1 ([facility] Resident)
[2025-07-07 13:26] LABS: Anion Gap 12 (7-16); BUN/Creatinine Ratio 8 Ratio (12-20); Blood Urea Nitrogen < 5 mg/dL (9-23); Calcium 8.7 mg/dL (8.3-10.6); Carbon Dioxide 21.2 mMol/L (20.0-31.0); Chloride 100 mMol/L (98-107); Creatinine (Component) 0.6 mg/dL (0.6-1.3); Estimated Creatinine Clearance 171.7 mL/min (>60); Glucose 238 mg/dL (74-106); Osmolality,Calculated 271 (275-295); Potassium 3.7 mMol/L (3.4-5.1); Sodium 133 mMol/L (136-145); eGFR > 60 See Note
[2025-07-07] MEDS: INSULIN HUM REGULAR 1 UNIT/0.01 ML (PER UNIT) 23 UNIT SC (17:20)
--- NOTE | 2025-07-07 17:34 | XR_ITS ---
Examination: age Limited Technique: Limited transabdominal sonographic images pelvis Date and time: July 07, 2025, 1802 hrs. Indications: Back pain pelvic pain elevated blood sugar since yesterday, unknown presentation. Findings: Viable intrauterine gestation cephalic presentation. spine maternal right Cardiac motion 157 BPM. Estimated weight 3150 g. Estimated age 35 weeks 6 days Abdominal measurement approximately 3 weeks larger than head and femur length Impression: Viable intrauterine gestation cephalic presentation
--- NOTE | 2025-07-07 19:33 | ESPR_ITS ---
Documentation for date of: 07/07/25 OB Labor Progress Note Pain Control Pain control: tolerating well Comments: The patient is a 29-year-old -2-0-3 at 32 weeks admitted with rule out DKA with some upper back pain and lower back pain. Patient has had no nausea or vomiting when she came when she got admitted she had 4+ glucose and 4+ ketones in her urine. She is a poorly controlled diabetic for the last 5 years since her last in 2019. Patient's hemoglobin A1c is approximately 9.6. She is being followed with an ultra clinic in [place] with Dr. Ardon but she wants to deliver here. She states she is having a hard time getting to the into the [facility] women's OB clinic. The internal medicine team was consulted and gave the patient large amounts of IV fluids and insulin. Her labs are normal. Patient will be discharged home after being kept almost 24 hours for observation. No signs of infection or DKA. Pelvic Exam Dilation (cm): closed Effacement (%): 0 station: -4 Amniotic membrane status: Intact Contractions Monitor mode: External Contraction frequency: 0 Contraction intensity: Mild Status status: Category l Assessment and Plan Comments: Discharge home after observing patient for almost 24 hours. The plan will be to increase her insulin to 30 units of NPH in the morning and 35 units of NPH at night 15 units of regular in the morning and 25 units of regular at night patient states her lunchtime values are in the normal range. If she needs to she can add up to 15 units of insulin at lunchtime. She will come back Saturday for an NST BPP she will get her records and call our clinic and see if she can be seen next week. We will perform NSTs BPP's twice weekly. She was already put on the schedule for repeat tubal ligation at 38 weeks. Patient states she has signed tubal ligation papers with Dr. Ardon. She does not have a copy with her on this admission. She was told always carry a copy with her because if we do not have those papers we cannot tie her last remaining fallopian tube. Patient has already had 1 fallopian tube removed with a prior . Patient will transfer care to our clinic. We might need to move her up to a week to approximately 37 weeks. At this point patient will be discharged home with close follow-up. An ultrasound did reveal vertex presentation adequate [place] and an EFW of almost 7 pounds at 32 weeks.
--- NOTE | 2025-07-07 19:39 | ESDS_ITS ---
DS: Providers Provider Date of admission: 07/06/25 17:16 Primary care physician: Physician No Primary/Family Admitting Provider: Teresa Bello MD Attending Provider on Admission: Atif Solis MD Consults: 07/06/25 20:48 Referral Registered Dietitian Routine Comment: Attending Provider on DC: Olena Suarez MD ([facility]) Discharging Provider: Olena Suarez MD ([facility]) Anticipated date of discharge: 07/07/25 DS: Diagnosis Discharge Diagnosis (1) 32 weeks gestation of : Status: Acute Assessment & Plan: Patient will follow-up for NST BPP and be placed on the schedule for twice weekly NST BPP's. (2) Insulin dependent type 2 diabetes mellitus: Status: Acute Assessment & Plan: Patient's had a normal level 2 ultrasound and echo at [facility]. We have no records. She has been followed with Dr. Ardon. She would like a tubal ligation performed at her repeat . She has poor control with a hemoglobin A1c of 9.6. Her insulin was adjusted this admission. Patient (3) Previous delivery affecting : Status: Acute Assessment & Plan: Patient has been put on the schedule 08/16/2025 for repeat at 38 weeks. With a tubal ligation. She needs to bring in her tubal papers she already signed. This could be moved up as needed depending on patient's blood glucose levels. (4) Macrosomic baby: Status: Acute Problem List Completed Was Problem List Reviewed/Reconciled?: Yes Summary/Hosp Course Brief History: Patient is 29 year old female at 32 weeks with past medical history of gestational diabetes, insulin-dependent type 2 diabetes and prior hypothyroidism. Presenting Issue: Abdominal pain and hyperglycemia Hospitalist was consulted for diabetes to mellitus management. Evaluation: The patient reports taking 20 units of insulin in the morning and 10 units at night, and noncompliant with daily blood glucose checks. Her typical morning blood glucose is around 120 mg/dL, and her average nightly glucose is about 140 mg/dL. She was diagnosed with Type 2 Diabetes Mellitus 5 years ago, following her third , and has a history of gestational diabetes. The patient was previously on Ozempic, but her treatment was discontinued 2 months ago prior to her fourth . She also has a history of hypothyroidism, for which she was prescribed medication by her primary care provider; however, she is no longer taking any thyroid medication and is uncertain as to why it was stopped. The patient denies experiencing nausea, vomiting, headache, lightheadedness, fever, chills, or any urinary changes at this time. 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 UA 4+ glucose and 4+ ketones (similar to prior OB appointment) 4 RBC, 11 WBC. Past OB History: 2C-section, 1 vaginal delivery, macrosomic baby, PPRM Family History: Noncontributory Surgical History: Cholecystectomy Social History:Denies history of smoking, denies current alcohol use, denies recreational drug use Current Medication;insulin NPH 20 units, insulin regular 10 unit, , vitamin D Please see history and physical for further details. Hospital course patient was admitted she was seen by the medicine service IV fluids and insulin were started. Ultrasound was performed on the baby revealing a vertex presentation almost 7 pounds at 32 weeks. Fluid was adequate. NST was adequate. Patient's pain resolved without any pain medication. She was able to ambulate and had no dysuria. None of her labs revealed signs of infection. She was discharged hospital day #1 in stable condition. Her insulin was readjusted. She was to follow-up Saturday for an NST BPP and to transfer her care to the [facility] women's clinic. Her new insulin regimen regiment was discussed. She had a dietary consult. The importance of strict glycemic control was reviewed with patient. Status at Discharge Cognitive/behavioral status at discharge: Patient is alert and oriented x 3 in no apparent distress Functional status at discharge: independent ambulation Overall status at discharge: patient is back to baseline Time Spent with Patient Time attestation: Total time spent providing and/or coordinating discharge services: Time spent: Greater than 30 minutes Specific discharge activities: Daily kick counts. Follow diet. Keep track of blood sugars and bring blood sugar log with you to every appointment. Exam Vital Signs Temp Pulse Resp BP Pulse Ox O2 Del Method 98.0 F 87 18 107/68 98 Room Air 07/07/25 17:00 07/07/25 17:01 07/07/25 17:00 07/07/25 17:01 07/07/25 05:46 07/07/25 17:00 Narrative Exam Patient is alert and orient x 3 in no apparent distress Constitutional Comments: Fundus is firm nontender no abdominal tenderness fundus measures approximately 40 weeks. Discharge Plan Plan Patient Disposition: HOME (Self Care) Disposition Comment: Stable Prescriptions/Referrals Prescriptions/Med Rec: New acetaminophen 325 mg Tablet 650 mg PO Q6HR PRN (Reason: Fever >100.4 or TANNER or Pain 1-3) Qty: 60 0RF Continued PNV no.95-ferrous fumarate-FA [] 28 mg iron- 800 mcg Tablet 1 tab PO QDAY Qty: 60 0RF Changed Humulin R Regular U-100 Insuln 100 unit/mL solution 10 unit subcut BIDAC Qty: 15 0RF Humulin N NPH U-100 Insulin 100 unit/mL suspension 20 unit SUBCUT BID Qty: 30 0RF Patient Comments: USE TO INJECT 20 UNITS EVERY MORNING AND 18 UNITS EVERY NIGHT AT BEDTIME Referrals: No Primary/Family,Physician [Primary Care Provider] Patient/Caregiver Discharge Instructions Discharge Activity: activity as tolerated Other Discharge Activity Instructions:: Check blood sugars 5 times a day, keep log take all insulin as prescribed follow gestational diet. Follow-up with NST BPP on Saturday. Other Discharge Diet Instructions: Diabetic general diet Education Materials: Diabetes Shopping Preparing Meals, Diabetes: Caring for Your Body, Blood Glucose Screening During ..., Diabetes: Living Your Life, Diabetes Learn Serve Portion Size, Diabetes Carbs Fats Protein Print Language: Yoruba Activity Restrictions/Additional Instructions: Get records follow-up at [facility] women's clinic next week for visit. Stand Alone Forms: Shanique Award Info., Patient Portal Info Letter, Work/Release Restrictions Discharge Order Discharge Orders: Discharge (Routine); Ordered 07/07/25 Ordered By: Olena Suarez ([facility]) Planned Discharge Date 07/07/25
--- NOTE | 2025-07-29 10:12 | EVENTNT_ITS ---
Documentation for date of: 07/29/25 Event Note Event Note: I received a call from MARY ELLEN Natarajan at [facility] regarding this patient. Patient is under the care of Dr Suarez and subsequently Dr. Bello. Dr. Nielsen was very unhappy that patient is not getting monitoring. She is extremely concerned about the risk of demise. Estimated weight today is 10 pounds with polyhydramnios. Patient is a noncompliant insulin-dependent diabetic. Patient has a history of . She has recommended delivery by 37 weeks. Per her patient has been directed to go to labor and delivery on Saturday for nonstress test.
== END 2025-07-07 20:34 | disposition home or self-care (01) ==
PROVIDERS: Admitting Provider Obstetrics & Gynecology; Visit Provider Student in an Organized Health Care Education/Training Program
DX: E11.10 Type 2 diabetes mellitus with ketoacidosis without coma (principal); Z79.4 Long term (current) use of insulin; O34.212 Maternal care for vertical scar from previous cesarean delivery; Z3A.32 32 weeks gestation of pregnancy
CPT/HCPCS: 36415; 59025; 59899; 76815; 80048; 80053; 81001; 82010; 82803; 83036; 84439; 84443; 85025; 87086; G0378; J1815; J3480; J7030; J7120; A9270

== ENCOUNTER 2025-07-12 16:48 | Outpatient (CLI) | payer MEDICAID, SELFPAY ==
[2025-07-12 16:35] VITALS: BP 107/70; PULSE 96; RESP 16; RESP 95; TEMP 36.8; BMI 36.6
[2025-07-12 16:56] VITALS: PULSE 89; O2SAT 97
[2025-07-12 16:57] VITALS: BP 107/70; PULSE 91
[2025-07-12 17:01] VITALS: PULSE 96; O2SAT 98
== END 2025-07-12 17:48 | disposition home or self-care (01) ==
LOC: CNST 16:49 → S4SX 16:50
PROVIDERS: Referring Provider Obstetrics & Gynecology; Visit Provider Obstetrics & Gynecology
DX: Z34.83 Encounter for supervision of other normal pregnancy, third trimester (principal); Z3A.33 33 weeks gestation of pregnancy
CPT/HCPCS: 59025

== ENCOUNTER 2025-07-26 10:06 | Outpatient (AMB) | payer MEDICAID, SELFPAY ==
--- NOTE | 2025-07-26 10:15 | AMB.OBINITIA ---
Vital Signs 07/26/25 10:18 Height 1.7 m Height Method Stated Weight 107.161 kg Weight Measurement Method Standing Scale BMI 37.0 BP 115/72 Blood Pressure Source Automatic Cuff Blood Pressure Location Right Upper Arm Position Sitting Respiration 17 Pulse 83 Pulse Source Monitor Temp 98.0 F Temp Source Temporal Artery Scan Pulse Oximetry (%) 96 Oxygen Delivery Method Room Air Allergies/Home Meds Allergies & Medications Allergies No Known Allergies Allergy (Verified 07/26/25 10:20) Medication Reconciliation acetaminophen 325 mg tablet 650 mg (2 x 325 mg) PO Q6HR PRN Fever >100.4 or TANNER or Pain 1-3 #60 tabs 07/07/25 [Rx Confirmed 07/26/25] insulin NPH isoph U-100 human 100 unit/mL subcutaneous suspension (Humulin N NPH U-100 Insulin (isophane susp)) 30 unit (0.3 mL) subcut BID #1 mL 07/07/25 [Rx Confirmed 07/26/25] insulin regular human 100 unit/mL injection solution (Humulin R Regular U-100 Insulin) 15 unit (0.15 mL) subcut BIDAC #1 mL 07/07/25 [Rx Confirmed 07/26/25] vit no.95-ferrous fumarate 28 mg-folic acid 800 mcg tablet () 1 tab PO QDAY #60 tabs 07/07/25 [Rx Confirmed 07/26/25] Intake Visit Data Collection New Patient or Established: Established Patient (seen at [facility] within 3 years) Reason for Visit:: OB TRANSFER Seen by Clinical Staff ONLY (RN/MA): No It Security Administrator Required: No Do You Feel Safe at Home: Yes Authorities Contacted: N/A PCP or OBGYN visit in last 3 months: No Hx Now: Yes Pain Present Currently: No Pain Scale Used: Bobo-Fraser/Numerical Pain scale:: 0 Smoking Status Smoking Status: Never smoker Immunizations Flu Vaccine in the Last 12 Months: Yes Flu Vaccine Exclusion Criteria: Already Received Questionnaires Covid-19 Vaccine Questionnaire Has patient been vacinated for Covid-19 Have you been vacinated for Covid-19: Yes PHQ-9 PHQ-2 Over the last 2 weeks, how often have you been bothered by any of the following problems? 1. Little interest or pleasure in doing things: not at all 2. Feeling down, depressed, or hopeless: not at all Total score: 0 PHQ-9 3. Trouble falling or staying asleep, or sleeping too much: Not at all 4. Feeling tired or having little energy: Not at all 5. Poor appetite or overeating: Not at all 6. Feeling bad about yourself - or that you are a failure or have let yourself or your family down: Not at all 7. Trouble concentrating on things, such as reading the newspaper or watching television: Not at all 8. Moving or speaking so slowly that other people could have noticed? - Or the opposite - being so fidgety or restless that you have been moving around a lot more than usual: not at all 9. Thoughts that you would be better off or of hurting yourself in some way: Not at all Total score: 0 If you checked off any problems, how difficult have these problems made it for you to do your work, take care of things at home, or get along with other people?: not difficult at all Source: Developed by Drs. Júnior Ann, Jailene Hamilton, Alfredo Joseph and colleagues, with an educational ramírez from [employer]. 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: Past Medical History Past Medical History: No Hx Neurological Disorders, Yes Hx Hypothyroidism, No Hx Hyperthyroidism, No Hx Breast Cancer, No Hx Cardiac Disorders, No Hx Cancer, No Hx Blood Disorders, No Hx Gastrointestinal Disorders, No Hx Renal Disease, No Hx Diabetes Mellitus Type 1, Yes Hx Diabetes Mellitus Type 2 (poorly controlled ), No Hx Tubal Ligation and No Hx Hysterectomy OB Initial Visit OB Flowsheet OB Flowsheet Initial Weight: Not Recorded Date <del>?</del> EGA Weight BP Alb Glu CTX Pres Fundal ht FHR Mov Dilation Station Effacement Hx Notes Visit Note 07/26/25 <del>?</del> 35w 0d 107.161 kg 115/72 absent cephalic 36 140 active Menstrual History Menstrual reliability: approximate (month known) Flow: heavy Menstrual regularity: regular Monthly: Yes Age at menarche: 11 On control pills at conception: No OB History : 4 Para: 3 Hx # Pregnancies: 3 # of Living Children: 3 Delivery History 1st : Child's name: JOSIE GIL date: 01/23/10 sex: male Gestational age at delivery (weeks): 34 Delivery type: vaginal weight (lbs): 3175.147 g History of depression before or after : No 2nd : Child's name: DAKSHA GIL date: 01/21/20 sex: male Gestational age at delivery (weeks): 36 Delivery type: weight (lbs): 343.88 g History of depression before or after : No 3rd : Child's name: BRITTANY FONTANEZ date: 01/05/24 sex: female Gestational age at delivery (weeks): 34 Delivery type: weight (lbs): 3628.739 g History of depression before or after : No Infection History & Risk Evaluation History of STDs: none Patient or partner has history of Genital Herpes: No Genetic Screening & History Genetic Screening/Teratology Counseling - Includes patient, baby's father, or anyone in either family with: 1. Patient's age 35 years or older as of estimated date of delivery: No 2. Thalassemia (Yi, Ethiopian, Mediterranean, or Background); MCV less than 80: No 3. Neural Tube Defect (Meningomyelocele, Spina Bifida, or Anencephaly): No 4. Congenital Heart Defect: No 5. Down Syndrome: No 6. Elliott-Sachs (Ashkenazi Zoroastrian, Cajun, [place]olan [place]): No 7. Donny Disease (Ashkenazi Zoroastrian): No 8. Familial Dysautonomia (Ashkenazi Zoroastrian): No 9. Sickle Cell Disease or Trait (): No 10. Hemophilia or other blood disorders: No 11. Muscular Dystrophy: No 12. Cystic Fibrosis: No 13. Camron's Chorea: No 14. Mental Retardation/Autism: No 15. Other inherited genetic or chromosomal disorder: No 16. Maternal Metabolic Disorder (EG,TYPE 1 Diabetes, PKU): No 17. Patient or baby's father had a child with defects not listed above: No 18. Recurrent loss or a stillbirth: No 19. Medications (including supplements, vitamins, herbs or otc drugs)/illicit/recreational drugs/alcohol since last menstrual period: No 20. Any other: No Infection History 1. Live with someone with TB or exposed to TB: No Other (see comments) Source: [employer] Office Procedures [facility] LOC & Office Proc's Nursing/Assessment Patient Status: Established Patient OB Clinic Nursing Assessment: Medication Reconciliation, Update PMH in EMR and Vital Signs OB Clinic Coordination of Care: Complex Care and Chronic Disease 1-5, Education Complex Pt/Fam, Consent,records obtained, informed consent, Lab and Imaging orders, Results/Orders obtained and Staff clarify orders Special Needs: Heart tones Established Patient Charge Established Patient Point Assignment: 140 Established Patient Point Charge: EP Level 4 (120-155) Assessment & Plan Diagnosis / Problem List (1) Insulin dependent type 2 diabetes mellitus: Status: Acute (2) Previous delivery affecting : Status: Acute (3) with 36 completed weeks gestation: Status: Acute Additional Plan 29 years old , previous 2 c section / h/o syphilis / and started with Hb A1c at 9.6 / Ob transfer from [place] and she has not had Hb A1c testing done recently T2DM on insulin am NPH 30 /R 15 Units Pm NPH 35Units and /R 25 units / she states she has a BTL consent and will bring it with her /based on her transfer records from [place] she has history of hypothyroid but her TSH has been normal. She has history of hypertension but her blood pressure has been normal.start NST/BPP once a week now . She is a positive/syphilis treated in 2023/tests in this for hepatitis and syphilis have been negative/ RPR is ordered again Or ordered hemoglobin A1c, CBC CMP, urine analysis, follow-up in [address] Carranza as her needs to be scheduled between 08 16-08 23 and I will not be here. If BTL consent is available it will be done along with the . echo done in May 20[facility] at [facility] is normal/ Patient refused to sign a new BTL consent form today / states she will bring the form she signed already at next visit . last Hb a1c not known patient will bring sterilization consent EDC by a 12.2 week US done 02/17/2025/ keep sugar log Follow Up: 1week
[2025-07-26 10:18] VITALS: BP 115/72; PULSE 83; RESP 17; TEMP 36.7; O2SAT 96; BMI 37.0
== END 2025-07-26 10:57 | disposition home or self-care (01) ==
PROVIDERS: Supervising Provider Obstetrics & Gynecology; Visit Provider Obstetrics & Gynecology
DX: O09.893 Supervision of other high risk pregnancies, third trimester (principal); O24.113 Pre-existing type 2 diabetes mellitus, in pregnancy, third trimester; O09.293 Supervision of pregnancy with other poor reproductive or obstetric history, third trimester; O34.219 Maternal care for unspecified type scar from previous cesarean delivery; Z3A.36 36 weeks gestation of pregnancy; Z79.4 Long term (current) use of insulin
CPT/HCPCS: 99214; G0463

== ENCOUNTER 2025-07-29 19:14 | Observation (INO) | payer MEDICAID, SELFPAY ==
[2025-07-29 19:22] VITALS: BP 127/81; PULSE 108; RESP 18; RESP 98; TEMP 36.6; BMI 37.3
[2025-07-29 19:25] VITALS: PULSE 106; O2SAT 97
[2025-07-29 19:26] VITALS: BP 127/81; PULSE 113
[2025-07-29 19:30] VITALS: PULSE 97; O2SAT 96
--- NOTE | 2025-07-29 19:42 | XR_ITS ---
Examination: Biophysical profile, ultrasound Date and time of exam: July 29, 2025, 2016 hours INDICATIONS: Decreased movement today Technique: Multiple transabdominal sonographic images of the pelvis abdomen obtained. Attention is directed to the breathing movement, gross body movement, amniotic fluid volume and tone. Findings: Amniotic fluid index 27.0 Total biophysical profile is 6 of 8. breathing movement is 2. Gross body movement is 2. tone is 2. Qualitative amniotic fluid volume is 0 Impression: Biophysical profile is 6 of 8. Polyhydramnios
[2025-07-29] MEDS: SODIUM CHLORIDE 0.9% 1000 ML 1,000 ML 999 ML IV (19:49)
== END 2025-07-29 21:47 | disposition home or self-care (01) ==
PROVIDERS: Admitting Provider Obstetrics & Gynecology; Visit Provider Obstetrics & Gynecology
DX: O36.8130 Decreased fetal movements, third trimester, not applicable or unspecified (principal); O40.3XX0 Polyhydramnios, third trimester, not applicable or unspecified; O26.893 Other specified pregnancy related conditions, third trimester; M54.50 Low back pain, unspecified; R10.20 Pelvic and perineal pain unspecified side; Z3A.35 35 weeks gestation of pregnancy
CPT/HCPCS: 59025; 59899; 76819; J7030

== ENCOUNTER 2025-08-05 13:07 | Outpatient (RCR) | payer MEDICAID, SELFPAY ==
--- NOTE | 2025-08-05 13:20 | XR_ITS ---
Examination: Biophysical profile, ultrasound Date and time of exam: August 05, 2025, 1319 hours INDICATIONS: Supervision of normal , history Technique: Multiple transabdominal sonographic images of the pelvis abdomen obtained. Attention is directed to the breathing movement, gross body movement, amniotic fluid volume and tone. Findings: Amniotic fluid index 19.6 cm Total biophysical profile is 8 of 8. breathing movement is 2. Gross body movement is 2. tone is 2. Qualitative amniotic fluid volume is 2 Impression: Biophysical profile is 8 of 8.
[2025-08-05 13:56] VITALS: BP 114/62; PULSE 68; RESP 16; TEMP 36.7
== END 2025-08-05 23:59 | disposition home or self-care (01) ==
LOC: S4S1 13:07
PROVIDERS: PCP Family Medicine; Referring Provider Obstetrics & Gynecology; Visit Provider Obstetrics & Gynecology
DX: O24.113 Pre-existing type 2 diabetes mellitus, in pregnancy, third trimester (principal); E11.9 Type 2 diabetes mellitus without complications; Z3A.36 36 weeks gestation of pregnancy; Z79.4 Long term (current) use of insulin
CPT/HCPCS: 59025; 76819; J1100; J2274; J2371; J2405; J2590; J3010; J3490; J2270

== ENCOUNTER 2025-08-06 09:08 | Outpatient (AMB) | payer MEDICAID, SELFPAY ==
[2025-08-06 09:47] VITALS: BP 119/82; PULSE 76; RESP 16; TEMP 36.7; O2SAT 97; BMI 38.2
--- NOTE | 2025-08-06 09:47 | OBCLNT_ITS ---
Vital Signs 08/06/25 09:47 Height 1.7 m Height Method Stated Weight 110.903 kg Weight Measurement Method Standing Scale BMI 38.2 BP 119/82 Blood Pressure Source Automatic Cuff Blood Pressure Location Left Upper Arm Position Sitting Respiration 16 Pulse 76 Pulse Source Monitor Temp 98.1 F Temp Source Oral Pulse Oximetry (%) 97 Oxygen Delivery Method Room Air Allergies/Home Meds Allergies & Medications Allergies No Known Allergies Allergy (Verified 08/24/25 09:05) Medication Reconciliation insulin syr/ndl U100 half bonita 0.3 mL 30 gauge x 5/16 #100 ea 08/06/25 [Rx Confirmed 08/24/25] enoxaparin 40 mg/0.4 mL subcutaneous syringe (Lovenox) 40 mg (0.4 mL) subcut Q24H #4 mL 08/11/25 [Rx Confirmed 08/24/25] insulin NPH isoph U-100 human 100 unit/mL subcutaneous suspension (Humulin N NPH U-100 Insulin (isophane susp)) 20 unit (0.2 mL) SCi BID #30 mL 08/11/25 [Rx Confirmed 08/24/25] insulin regular human 100 unit/mL injection solution (Humulin R Regular U-100 Insulin) 10 unit (0.1 mL) SCi TIDWM #30 mL 08/11/25 [Rx Confirmed 08/24/25] hydrocodone 5 mg-acetaminophen 325 mg tablet 1 tab PO Q6H PRN pain #20 tabs 09/26/25 [Rx] ibuprofen 800 mg tablet 800 mg PO Q8H PRN pain #30 tabs 09/26/25 [Rx] Intake Visit Data Collection New Patient or Established: Established Patient (seen at [facility] within 3 years) Reason for Visit:: CARE Seen by Clinical Staff ONLY (RN/MA): No Technical Product Manager Required: No Do You Feel Safe at Home: Yes Authorities Contacted: N/A PCP or OBGYN visit in last 3 months: Yes Hx Now: Yes Are you currently on any form of Control: No Pain Present Currently: Yes Pain Location: Back Pain Scale Used: Bobo-Fraser/Numerical Pain scale:: 6 Smoking Status Smoking Status: Never smoker Immunizations Flu Vaccine in the Last 12 Months: Yes Flu Vaccine Exclusion Criteria: Already Received Questionnaires Covid-19 Vaccine Questionnaire Has patient been vacinated for Covid-19 Have you been vacinated for Covid-19: Yes PHQ-9 PHQ-2 Over the last 2 weeks, how often have you been bothered by any of the following problems? 1. Little interest or pleasure in doing things: not at all 2. Feeling down, depressed, or hopeless: not at all Total score: 0 PHQ-9 3. Trouble falling or staying asleep, or sleeping too much: Not at all 4. Feeling tired or having little energy: Not at all 5. Poor appetite or overeating: Not at all 6. Feeling bad about yourself - or that you are a failure or have let yourself or your family down: Not at all 7. Trouble concentrating on things, such as reading the newspaper or watching television: Not at all 8. Moving or speaking so slowly that other people could have noticed? - Or the opposite - being so fidgety or restless that you have been moving around a lot more than usual: not at all 9. Thoughts that you would be better off or of hurting yourself in some way: Not at all Total score: 0 Source: Developed by Drs. Júnior Ann, Jailene Hamilton, Alfredo Joseph and colleagues, with an educational ramírez from [employer]. 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 - She reports being noncompliant with care and has had very limited visits. - Maternal- medicine specialist has recommended delivery by 37 weeks due to macrosomia. - Estimated weight is 10 pounds. - She reports intermittent pain lasting about 2 minutes but denies regular contractions. - She experiences back heaviness which she attributes to the large baby size. - She has been wearing a pad for discharge monitoring. - She reports running out of insulin needles yesterday and requests a prescription. - She uses insulin syringes rather than pen needles, as the pen was discontinued last year during her previous . - She confirms movement is active. - She has signed sterilization consent for tubal ligation. Exam General General Appearance: alert, in no apparent distress and healthy appearing Head Head exam: atraumatic Neck Neck exam: Present normal inspection and trachea midline Chest Chest inspection: Present normal inspection and symmetric chest wall rise External exam: Present normal external exam; Absent tenderness Neuro Neurological exam: Present oriented X3 Psych Psychiatric exam: Present normal affect and normal mood Office Procedures [facility] LOC & Office Proc's Nursing/Assessment Patient Status: Established Patient OB Clinic Nursing Assessment: Medication Reconciliation, Update PMH in EMR and Vital Signs OB Clinic Coordination of Care: Complex Care and Chronic Disease 1-5, Co nsent,records obtained, informed consent, Education Simp Pt/Fam, Lab and Imaging orders, Results/Orders obtained and Staff clarify orders Special Needs: Heart tones Miscellaneous Interventions: Culture Specimen Collection Established Patient Charge Established Patient Point Assignment: 150 Established Patient Point Charge: EP Level 4 (120-155) Assessment & Plan Diagnosis / Problem List (1) Gestational diabetes mellitus (GDM): Status: Acute Plan Problem List - Diabetes mellitus in - Diabetic ketoacidosis - Macrosomia - at 36 weeks 4 days Assessment 29-year-old 4 para 3-0-0-3 at 36 weeks 4 days gestation with poorly controlled insulin-dependent diabetes mellitus and history of diabetic ketoacidosis, presenting with macrosomia (estimated weight 10 pounds) requiring delivery by 37 weeks per maternal- medicine recommendation. Patient has history of premature rupture of membranes in previous and demonstrates poor care compliance with very limited visits after late transfer from outside clinic. Patient reports intermittent pain lasting approximately 2 minutes and back discomfort consistent with advanced . heart rate is normal at 143 beats per minute with reported normal activity. Patient has completed sterilization consent for tubal ligation. Plan - Scheduled section Saturday at 12:30 PM, check-in at 10:00 AM - NPO after 4:00 AM on day of surgery (no food, drink, or insulin) - Tubal ligation to be performed during section (patient to bring signed sterilization consent) - Prescribe insulin syringes (30-gauge) to [facility] pharmacy - Plan to switch to insulin pen for convenience post-delivery - Labs to be drawn after hospital check-in - One visitor allowed during section, 2-3 visitors allowed post- operatively 1. Progress Reviewed gestational age (36 weeks and 4 days), growth (estimated weight 10 pounds), and heart rate (143 bpm, normal). Planned delivery at 37 weeks per [facility] recommendation due to poorly controlled diabetes and large size. 2. Instructed patient to monitor movements and report decreases immediately. 3. Testing Counseled on routine third-trimester labs per guidelines. Discussed potential need for ultrasound or monitoring based on risk factors. 4. Preeclampsia Precaution Educated on preeclampsia signs: severe headache, vision changes, right upper quadrant pain, sudden swelling. Advised urgent reporting of symptoms and discussed blood pressure monitoring if high risk. 5. Labor Precautions Reviewed labor signs: regular contractions, pelvic pressure, back pain, bleeding, or fluid leakage. Instructed to seek immediate care for these symptoms. 6. Lifestyle and Delivery Preparation Reinforced vitamins, nutrition, and safe activity. Discussed plan (scheduled section on Saturday at 12:30 PM), pain management, and . Advised on labor preparation (check-in at 10:00 AM, NPO after 4:00 AM, bring sterilization consent) and expectations. 7. Psychosocial Support Assessed emotional well-being and offered resources for mental health or parenting support.
== END 2025-08-06 10:06 | disposition home or self-care (01) ==
LOC: HODSOBC 09:08
PROVIDERS: Supervising Provider Obstetrics & Gynecology; Visit Provider Obstetrics & Gynecology
DX: O09.893 Supervision of other high risk pregnancies, third trimester (principal); O36.63X0 Maternal care for excessive fetal growth, third trimester, not applicable or unspecified; O24.113 Pre-existing type 2 diabetes mellitus, in pregnancy, third trimester; E11.65 Type 2 diabetes mellitus with hyperglycemia; O09.33 Supervision of pregnancy with insufficient antenatal care, third trimester; Z3A.36 36 weeks gestation of pregnancy; Z87.59 Personal history of other complications of pregnancy, childbirth and the puerperium; Z91.199 Patient's noncompliance with other medical treatment and regimen due to unspecified reason
CPT/HCPCS: 99214; G0463

== ENCOUNTER 2025-08-09 10:31 | Inpatient (IN) | payer MEDICAID, SELFPAY ==
[2025-08-09] VITALS (13 sets, daily range): BP systolic 113–133; BP diastolic 79–100; PULSE 54–72; RESP 12–21; TEMP 36.3–36.9; O2SAT 96–100; BMI 38.5
[2025-08-09 11:54] LABS: Basophils # (Auto) 0.0 Thou/mm3 (0.0-0.2); Basophils % (Auto) 0 % (0-2.5); Eosinophils # (Auto) 0.0 Thou/mm3 (0.0-0.5); Eosinophils % (Auto) 0 % (0-10); Hematocrit 40.5 % (36.0-46.0); Hemoglobin 13.5 g/dL (12.0-16.0); Immature Granulocytes Auto 0.01 Thou/mm3 (0.00-0.00); Lymphocytes # (Auto) 1.9 Thou/mm3 (1.0-4.8); Lymphocytes % (Auto) 36 % (10-50); Mean Corpuscular HGB Conc 33.3 g/dl (31.0-37.0); Mean Corpuscular Hemoglobin 28.7 pg (25.0-35.0); Mean Corpuscular Volume 86 fL (80-100); Monocytes # (Auto) 0.4 Thou/mm3 (0.0-0.8); Monocytes % (Auto) 7 % (0-12); Neutrophils # (Auto) 2.9 Thou/mm3 (1.8-7.7); Neutrophils % (Auto) 56 % (37-80); Nucleated Red Blood Cell # 0.00 Thou/mm3 (0.00-0.00); Nucleated Red Blood Cell % 0 /100 WBC (0); Platelet Count 182 Thou/mm3 (140-440); RDW Standard Deviation 40.1 fL (36.4-46.3); Red Blood Count 4.70 Miln/mm3 (4.00-5.20); White Blood Count 5.2 Thou/mm3 (3.6-11.0)
[2025-08-09 12:11] LABS: Alanine Aminotransferase 30 U/L (10-49); Albumin, Serum 4.1 gm/dL (3.5-5.0); Albumin/Globulin Ratio 1.7 (1.2-2.2); Alkaline Phosphatase 205 U/L (46-116); Anion Gap 12 (7-16); Aspartate Amino Transferase 29 U/L (0-34); BUN/Creatinine Ratio 11 Ratio (12-20); Bilirubin,Total 0.5 mg/dL (0.3-1.2); Blood Urea Nitrogen 8 mg/dL (9-23); Calcium 8.9 mg/dL (8.3-10.6); Calcium (Corrected) 8.9 mg/dL (8.5-10.1); Carbon Dioxide 21.8 mMol/L (20.0-31.0); Chloride 107 mMol/L (98-107); Creatinine (Component) 0.7 mg/dL (0.6-1.3); Globulin 2.4 gm/dL (2.3-3.5); Glucose 88 mg/dL (74-106); Osmolality,Calculated 278 (275-295); Potassium 4.0 mMol/L (3.4-5.1); Sodium 141 mMol/L (136-145); Total Protein 6.5 gm/dL (5.7-8.2); eGFR > 60 See Note
[2025-08-09 12:13] LABS: Glucose Estimated Average 249 mg/dL (80-131); Hemoglobin A1C 10.3 % Hgb (4.8-6.0)
[2025-08-09 12:29] LABS: Syphilis Reactive (Nonreactive)
[2025-08-09 12:30] LABS: MHATP/TP-PA* See Sep Rpt
--- NOTE | 2025-08-09 12:31 | ESHP_ITS ---
Documentation for date of: 08/09/25 OB Labor/Induct. HPI History of Present Illness Chief complaint: Elective repeat section with tubal ligation : 4 Term pregnancies: 0 pregnancies: 3 Living children: 3 History of Abortions: Spontaneous and Elective: 0 History of sections: Yes History of : No SHASHANK: 08/30/25 Gestational Age (weeks): 37 Gestational Age (days): 0 History of present illness: The patient is a 29-year-old -2-0-3 past obstetrical history significant for vaginal delivery x one 15 years ago. Patient stated that baby weighed in the 7 pound range. She then had a primary at 36 weeks of an 11 pound baby and most recently a repeat at 34 weeks for an 8 pound baby. Patient states during one of her C-sections one of her fallopian tubes was removed. She presents today at 37 weeks for a scheduled elective repeat section for insulin requiring gestational diabetes, noncompliant. The maternal medicine physician recommended a scheduled at 37 weeks. Of note her hemoglobin A1c on presentation is 10.3. The morning of her section the patient reported good movement no vaginal bleeding or loss of fluids. She was having regular nonpainful uterine contractions on the monitor. History of Present Dating criteria: LMP confirmed by 1st trimester US Adequate Care: Yes Ultrasounds: normal mid trimester US Obstetrical complications: gestational diabetes and other (History of large for gestational age baby x 2) Labs Maternal Blood Type: A Pos Labs: Positive: RPR (RPR positive), Negative: Hepatitis B, Rubella Titre (Rubella nonimmune), HIV, Chlamydia and Gonorrhea and Unknown: Group Beta Strep Past Medical History Surgical History SURGICAL: Positive Section Past Medical History Comments PMH COMMENT: Patient is a noncompliant type II insulin requiring diabetic She has a history of x 2 During her first , a fallopian tube was also removed. Meds Home Medications and Allergies Home Medications ?Medication ?Instructions ?Recorded ?Confirmed ?Type cholecalciferol (vitamin D3) 1,250 1,250 mcg PO DAILY 07/29/25 08/06/25 History mcg (50,000 unit) capsule insulin NPH isoph U-100 human 100 37 unit subcut HS 08/06/25 History unit/mL (3 mL) subcutaneous pen (Humulin N NPH U-100 Insulin KwikPen) insulin NPH isoph U-100 human 100 30 unit subcut ACBR 07/29/25 08/06/25 History unit/mL subcutaneous suspension (Humulin N NPH U-100 Insulin (isophane susp)) insulin regular human 100 unit/mL 15 unit subcut ACBR 07/29/25 08/06/25 History injection solution (Humulin R Regular U-100 Insulin) insulin regular human 100 unit/mL 27 unit subcut QPM 1 08/06/25 History injection solution (Humulin R Regular U-100 Insulin) Allergies Allergy/AdvReac Type Severity Reaction Status Date / Time No Known Allergies Allergy Verified 08/06/25 09:48 OB Exam Physical Exam Vital signs: Pulse BP 72 120/84 08/09/25 10:58 08/09/25 10:58 Routine Respiratory Exam Respiratory: Present CTA bilaterally Routine Cardiovascular Exam Cardiovascular: Present RRR Routine Abdominal Exam Abdominal: Present soft Comments: Enlarged fundal height, suspected 11 to 12 pound baby. Detailed Labor and Delivery Exam Membranes: intact monitor accelerations: 15x15 monitor decelerations: None halfway variability: Moderate (11-25) Contraction frequency (min): Every 1 to 2 minutes Contraction intensity: Mild OB Results Labs 08/09/25 11:30 08/09/25 11:30 Labs: Short CBC 08/09/25 Range/Units 11:30 WBC 5.2 (3.6-11.0) Thou/mm3 Hgb 13.5 (12.0-16.0) g/dL Hct 40.5 (36.0-46.0) % Plt Count 182 (140-440) Thou/mm3 BMP 08/09/25 11:30 Sodium 141 Potassium 4.0 Chloride 107 Carbon Dioxide 21.8 BUN 8 L Creatinine 0.7 Glucose 88 Calcium 8.9 Liver Function 08/09/25 Range/Units 11:30 Total Bilirubin 0.5 (0.3-1.2) mg/dL AST 29 (0-34) U/L ALT 30 (10-49) U/L Alkaline Phosphatase 205 H (46-116) U/L Albumin 4.1 (3.5-5.0) gm/dL OB Assessment & Plan Assessment and Plan (1) Previous delivery affecting : Status: Acute Assessment and plan: For elective repeat section at 37 weeks. The risks of the procedure were discussed with the patient and the father of the baby at bedside including the risk of bleeding, infection, blood transfusion, damage to bowel, bladder, blood vessels, other organs. Prolonged hospital stay and further surgery should above occur. Possible . Patient also desires her remaining fallopian tube to be removed. The risks of a salpingectomy were discussed including the permanency of the procedure, risk of failure of 1%, and the increased risk of ectopic should failure occur. All questions were answered, all consents were signed (2) Rubella nonimmune status, delivered, current hospitalization: Status: Acute Assessment and plan: MMR vaccine (3) Macrosomic baby: Status: Acute Assessment and plan: The on-call final inspector truck trailer is aware of the potential macrosomic baby. (4) Insulin dependent type 2 diabetes mellitus: Status: Acute Assessment and plan: Hemoglobin A1c 10.3 on admission. (5) Positive RPR test: Status: Acute Assessment and plan: Will let final inspector truck trailer know. Consider treatment as we wait for tPA result
[2025-08-09] MEDS: ceFAZolin/D5W 2 GM IV 2 GM/100 ML BAG IV (12:38)
[2025-08-09] MEDS: FAMOTIDINE INJ 10 MG/ML VIAL 2 ML 20 MG IV (12:38)
--- NOTE | 2025-08-09 14:40 | OBDSUM_ITS ---
Data (Anna) Data Hx Section: Yes Maternal Blood Type: A Pos Rubella Titre: Negative RPR: Reactive Labs: Positive: RPR (RPR positive), Negative: Hepatitis B, HIV, Chlamydia and Gonorrhea and Unknown: Group Beta Strep : 4 Term: 1 : 2 Livin Abortions: Spontaneous & Theraputic: 0 Delivery Data (Anna) Labor Data Induction/Augmentation Agent: None ROM date: 08/09/25 ROM time: 13:16 Amniotic membrane rupture type: Artificial Amniotic fluid description: Clear Delivery Data EDC: 08/30/25 EDC calculated by:: LMP/early US confirmation Date of arrival to unit: 08/09/25 [place] delivery date: 08/09/25 delivery time: 13:16 Gestational age (weeks): 37 Gestational age (days): 0 Placenta delivery date: 08/09/25 Placenta delivery time: 13:16 Delivered by: Olena Suarez ([facility]) Delivery nurse: [place] nurse: BJORN [employer] Freight Manager at delivery: No Support person(s) at delivery: FOB Other staff at delivery: Maxwell FERRER PAS STUDENT, Ann Marie SALINAS GARMENT FORM ASSEMBLER, , Maxwell WALLACE RT STUDENT, Georgina OLIVARES PC RN STUDENT, Aren FLORES PC RN STUDENT Delivery Method Delivery method: Low Transverse Presentation: Vertex position: OA Anesthesia Type Anesthesia Type: Spinal Delivery Room Medications Delivery room medications: Methergine 0.2 mg IM, Pitocin 20 u IV and other (TXA) Placenta Placenta delivery description: Manual Removal Cord blood sent to lab: Yes cord blood collection: Cord Blood Type, Arterial Cord Blood Gas and Venous Cord Blood Gas Episiotomy Episiotomy description: None EBL Estimated blood loss (ml): 400 Umbilical Cord cord description: 3 Vessels Additional Procedures See op report for further details Complications Complications: None [place] Data (Anna) Data order: 1 's gender: Male Identification band number: [id number] weight (gms): 5540 g Weight (pounds): 12 lbs and 3.4 ozs 1 minute: 8 5 minutes: 9
--- NOTE | 2025-08-09 14:48 | PD.GYNPROC ---
Operative Note - BLACK [employer]XIDE COATING EQUIPMENT TENDER Procedure Date of procedure: 08/09/25 Procedure Performed: Repeat low-transverse section with right salpingectomy Indication: The patient is a 29-year-old -2-0-3 at 37 weeks with an EDC of 08/30/2025 who presents for a scheduled elective repeat section. .Her past obstetrical history is significant for a vaginal delivery x 1 approximately 15 years ago followed by at 36 weeks for arrest of dilation. That baby weighed 11-1/2 pounds. She then had a at 34 weeks for ruptured membranes. That baby was 8 pounds. She presents today for a scheduled elective repeat . Of note she did sign tubal ligation papers in the office and desires permanent sterilization. Of note with her first patient had one of her fallopian tubes removed during surgery. The patient is a type II diabetic, requiring high doses of insulin during . Her blood sugars have been not well-controlled during this entire . Her admission hemoglobin A1c is 10.3. The maternal- medicine specialist recommended delivery at 37 weeks for the increased risk of demise close to the due date with uncontrolled gestational diabetes. Pre-Op diagnosis: 1. IUP 37 weeks 2. Type II DM, on Insulin with poor control 3. HgBAic 10.2 4. Maternal BMI of 38.5 5. Multiparity, desires permanent sterilization 6. Previous CS x 2 Post-Op diagnosis: Same Anesthesia type: Spinal Procedure description: After obtaining informed consent, the patient was brought back to the operating room and spinal anesthesia was administered. She was then prepped and draped in the dorsal supine position with a leftward tilt in a normal sterile fashion. A Mabry catheter was inserted into the patient's bladder. The patient was given 2 g of Ancef by anesthesia. A Pfannenstiel skin incision was made with a scalpel through the patient's prior scar and carried down to the underlying fascia. The fascia was incised in the midline, and the fascial incision extended laterally using Medrano scissors. The superior aspect of the fascia was grasped with Cara clamps and the underlying rectus muscles dissected off using blunt and sharp dissection. This was repeated in the inferior aspect the of the incision. The rectus muscles were the midline, and the peritoneum was picked up and entered sharply with Metzenbaums. This was extended superiorly and inferiorly with good visualization of the bladder. The bladder blade was inserted and the uterus incised in a low transverse fashion with a scalpel above the bladder reflection. The uterine incision was extended laterally using blunt dissection with the surgeon's fingers. The bag chaidez was ruptured and copious clear fluid was noted. The bladder blade was removed, and the was delivered atraumatically in a vertex presentation. As the infant was vigorous at , delayed cord clamping was performed for approximately 30 seconds. The cord was clamped and cut and the was handed off to the waiting pediatric staff. Cord blood and cord gases were sent. The placenta was then manually removed, and the uterus was exteriorized and cleared of all clots and debris. The uterine incision was repaired using 0 Monocryl in a running locked fashion. As the uterus was noted to be boggy, the patient was given IM Methergine. The uterus then firmed up nicely. The patient was then verbally consented again for a unilateral salpingectomy. Her right fallopian tube was grossly normal. Her left fallopian tube had been removed in a prior surgery. After the patient verbally consented again for permanent sterilization, the patient's right fallopian tube was identified, followed out to its fimbriated end elevated with 2 Hollis clamps. Two free ties of 0 plain were placed across the fallopian tube and the fallopian tube was ligated. The fallopian tube was then transected. A near total portion of the right fallopian tube including the fimbria was handed off the operating field. The tubal transection site was noted to be hemostatic. The uterus is then returned to the patient's abdominal cavity, and copious irrigation carried out with warm normal saline. The uterine incision was reexamined and noted be hemostatic. The right salpingectomy site was reexamined noted be hemostatic. After ensuring the rectus muscles were hemostatic, these were reapproximated in the midline using a running suture of 0 Monocryl. The fascia was closed with 0 Vicryl in a running fashion. The subcutaneous tissues were irrigated and found to be hemostatic. These were reapproximated using a running suture of 2-0 plain. The skin was closed with a subcuticular suture of 4-0 Monocryl. The patient tolerated the procedure well, sponge, lap, instrument, and needle counts were correct x 2. The patient went to the recovery area awake and in stable condition. Of note the baby went to the nursery for observation secondary to LGA and blood sugar issues. Pathology was near-total portion of right fallopian tube Fluids: crystalloid Fluid amount (mL): 1,200 Urine output (mL): 200 Specimen: right tube Implants: None Estimated blood loss (ml): 400 Findings: Liveborn male OA presentation with no nuchal cord and no meconium .Apgars 8 and 9 weight was 5540 g or approximately 12 pounds 3 ounces. The placenta was complete spontaneous grossly normal. Patient had large amounts of amniotic fluid suggestive of polyhydramnios. Umbilical cord gases were normal and the baby with a pH of umbilical artery 7.22 and a base excess umbilical artery -1.1. pH umbilical vein 7.28 with a base excess umbilical vein -1.1. Patient's uterus was grossly normal. She had very little scar tissue present. She had a thick lower uterine segment. Patient's ovaries bilaterally were normal her left fallopian tube had been surgically removed. Her right fallopian tube was grossly normal. Complications: none Surgical staff Operation Date: 08/09/25 12:45 <No data on this case meets the specified criteria> Diagnosis Discharge Diagnosis (1) Positive RPR test: Status: Acute Problem details: For penicillin prior to discharge (2) Obesity affecting in third trimester: Status: Acute (3) Previous section complicating : Status: Acute Problem details: Patient underwent a successful elective repeat section with unilateral salpingectomy for permanent sterilization (4) Insulin dependent type 2 diabetes mellitus: Status: Acute Problem details: Insulin (5) Macrosomic baby: Status: Acute Problem List Completed Was Problem List Reviewed/Reconciled?: Yes (2) Obesity affecting in third trimester Qualifiers: Obesity type affecting : other obesity due to excess calories Qualified Code(s): O99.213 - Obesity complicating , third trimester; E66.09 - Other obesity due to excess calories
--- NOTE | 2025-08-09 16:12 | PC.NURSE ---
DR. RAZA NOTIFIED PT BS 119. PER M.D. HOLD INSULIN. START INSULIN WHEN PT STARTS EATING MEALS.
[2025-08-09] MEDS: HYDROmorphone INJ 2 MG/ML VIAL 1 MG IVP (16:42)
--- NOTE | 2025-08-09 16:45 | PC.NURSE ---
1630- DR. RAZA CALLED TO BEDSIDE, PT BLEEDING WITH FUNDAL MASSAGES. 1635- DR. RAZA AND MORTGAGE CONSULTANT Priyanka BARNARD AT BEDSIDE. 1645. BAKRI BALLOON PLACED. QBL FROM WEIGHED CHUCKS AND PADS [phone] ML.
[2025-08-09] MEDS: OXYTOCIN in NS 20 units 20 UNIT/1,000 ML BAG 125 UNIT IV (16:57)
--- NOTE | 2025-08-09 17:13 | ESPR_ITS ---
Subjective Subjective Interval history: The patient is a 29-year-old -2-0-4 status post repeat low-transverse section with right salpingectomy earlier today. The baby weighed 12 pounds 3 ounces. I was called to bedside for heavy vaginal bleeding. Patient had been given Methergine during her section and TXA. I performed a bedside exam and was able to remove approximately 300 cc of clots and performed a manual exploration of her cavity. No retained products were noted. A Bakri balloon was called for and placed with 300 cc of normal saline. The total blood loss once all of the clots and pads were measured was 636 cc. Patient's blood pressure was stable 110/80 pulse at the time I was at bedside was in the 60s. The plan was to keep the Bakri in place for 24 hours, continue IV Ancef x 24 hours. Keep Mabry in place x 24 hours and check a stat CBC. Exam Vital Signs Pulse BP 72 120/84 08/09/25 10:58 08/09/25 10:58 Narrative Exam Patient is alert and orient x 3 in no apparent distress Routine Abdominal Exam Comments: Fundus was firm Objective Labs 08/09/25 11:30 08/09/25 11:30 Labs: Laboratory Results - last 24 hr 08/09/25 11:30 WBC 5.2 RBC 4.70 Hgb 13.5 Hct 40.5 MCV 86 MCH 28.7 MCHC 33.3 RDW Std Deviation 40.1 Plt Count 182 Neut % (Auto) 56 Lymph % (Auto) 36 [place] % (Auto) 7 Eos % (Auto) 0 Baso % (Auto) 0 Neut # (Auto) 2.9 Lymph # (Auto) 1.9 [place] # (Auto) 0.4 Eos # (Auto) 0.0 Baso # (Auto) 0.0 Immature Gran # (Auto) 0.01 H Absolute Nucleated RBC 0.00 Immature Gran % 0 Nucleated RBC % 0 Sodium 141 Potassium 4.0 Chloride 107 Carbon Dioxide 21.8 Anion Gap 12 BUN 8 L Creatinine 0.7 Estim Creat Clear Calc Not Performed. eGFR > 60 BUN/Creatinine Ratio 11 L Glucose [address] Glu mg/dL 249 H Hemoglobin A1c 10.3 H Calculated Osmolality 278 Calcium 8.9 Corrected Calcium 8.9 Total Bilirubin 0.5 AST 29 ALT 30 Alkaline Phosphatase 205 H Total Protein 6.5 Albumin 4.1 Globulin 2.4 Albumin/Globulin Ratio 1.7 Syphilis Serology Reactive A Blood Type A Positive Antibody Screen NEGATIVE Blood Bank Wristband ID Yes Assessment & Plan Problem List (1) Positive RPR test: Problem details: Dr. Vince Suarez infectious disease consulted. Patient stated she has been treated for syphilis in the past. Status: Acute (2) Obesity affecting in third trimester: Status: Acute (3) Previous section complicating : Problem details: Patient underwent a successful elective repeat section with unilateral salpingectomy for permanent sterilization Status: Acute (4) Insulin dependent type 2 diabetes mellitus: Problem details: Insulin Status: Acute (5) Macrosomic baby: Status: Acute Time Spent With Patient Time: Total time spent is greater than 50% in coordination of care (as documented) at patient's floor/unit and/or counseling patient: Time with patient: less than 15 minutes
[2025-08-09 17:33] LABS: Basophils # (Auto) 0.0 Thou/mm3 (0.0-0.2); Basophils % (Auto) 0 % (0-2.5); Eosinophils # (Auto) 0.0 Thou/mm3 (0.0-0.5); Eosinophils % (Auto) 0 % (0-10); Hematocrit 40.1 % (36.0-46.0); Hemoglobin 13.0 g/dL (12.0-16.0); Immature Granulocytes Auto 0.03 Thou/mm3 (0.00-0.00); Lymphocytes # (Auto) 1.2 Thou/mm3 (1.0-4.8); Lymphocytes % (Auto) 12 % (10-50); Mean Corpuscular HGB Conc 32.4 g/dl (31.0-37.0); Mean Corpuscular Hemoglobin 28.9 pg (25.0-35.0); Mean Corpuscular Volume 89 fL (80-100); Monocytes # (Auto) 0.2 Thou/mm3 (0.0-0.8); Monocytes % (Auto) 2 % (0-12); Neutrophils # (Auto) 8.1 Thou/mm3 (1.8-7.7); Neutrophils % (Auto) 85 % (37-80); Nucleated Red Blood Cell # 0.00 Thou/mm3 (0.00-0.00); Nucleated Red Blood Cell % 0 /100 WBC (0); Platelet Count 170 Thou/mm3 (140-440); RDW Standard Deviation 42.5 fL (36.4-46.3); Red Blood Count 4.50 Miln/mm3 (4.00-5.20); White Blood Count 9.6 Thou/mm3 (3.6-11.0)
--- NOTE | 2025-08-09 18:31 | PD.IDPROG ---
Subjective Subjective Interval history: asked to see for pos syphilis screen here. was neg by in 2023 at [facility] repeat pending Exam Vital Signs Temp Pulse Resp BP Pulse Ox O2 Del Method 97.4 F 54 L 18 113/88 H 98 Room Air 08/09/25 16:15 08/09/25 16:15 08/09/25 16:15 08/09/25 16:15 08/09/25 16:15 08/09/25 16:15 Narrative Exam not seen tests ordered Objective - Internal Medicine Labs 08/09/25 16:55 08/09/25 11:30 Labs: Laboratory Results - last 24 hr 08/09/25 08/09/25 11:30 16:55 WBC 5.2 9.6 D RBC 4.70 4.50 Hgb 13.5 13.0 Hct 40.5 40.1 MCV 86 89 MCH 28.7 28.9 MCHC 33.3 32.4 RDW Std Deviation 40.1 42.5 Plt Count 182 170 Neut % (Auto) 56 85 H Lymph % (Auto) 36 12 [place] % (Auto) 7 2 Eos % (Auto) 0 0 Baso % (Auto) 0 0 Neut # (Auto) 2.9 8.1 H Lymph # (Auto) 1.9 1.2 [place] # (Auto) 0.4 0.2 Eos # (Auto) 0.0 0.0 Baso # (Auto) 0.0 0.0 Immature Gran # (Auto) 0.01 H 0.03 H Absolute Nucleated RBC 0.00 0.00 Immature Gran % 0 0 Nucleated RBC % 0 0 Sodium 141 Potassium 4.0 Chloride 107 Carbon Dioxide 21.8 Anion Gap 12 BUN 8 L Creatinine 0.7 Estim Creat Clear Calc Not Performed. eGFR > 60 BUN/Creatinine Ratio 11 L Glucose [address] Glu mg/dL 249 H Hemoglobin A1c 10.3 H Calculated Osmolality 278 Calcium 8.9 Corrected Calcium 8.9 Total Bilirubin 0.5 AST 29 ALT 30 Alkaline Phosphatase 205 H Total Protein 6.5 Albumin 4.1 Globulin 2.4 Albumin/Globulin Ratio 1.7 Syphilis Serology Reactive A Blood Type A Positive Antibody Screen NEGATIVE Blood Bank Wristband ID Yes Assessment & Plan Time Spent With Patient Time: Total time spent is greater than 50% in coordination of care (as documented) at patient's floor/unit and/or counseling patient:
--- NOTE | 2025-08-09 20:45 | PC.NURSE ---
Notify MD Suarez of pt's Blood sugar 125. Per to hold the 2100 SC Insulin NPH.
[2025-08-09] MEDS: KETOROLAC INJ 30 MG/ML VIAL IVP (23:38)
[2025-08-10 00:04] VITALS: BP 121/83; PULSE 60; RESP 14; TEMP 36.4; O2SAT 95
[2025-08-10] MEDS: RINGERS LACTATED 1000 ML 1,000 ML 100 ML IV (01:46)
[2025-08-10 04:00] VITALS: BP 117/81; PULSE 68; RESP 15; TEMP 36.8; O2SAT 97
[2025-08-10 05:18] LABS: Basophils # (Auto) 0.0 Thou/mm3 (0.0-0.2); Basophils % (Auto) 0 % (0-2.5); Eosinophils # (Auto) 0.0 Thou/mm3 (0.0-0.5); Eosinophils % (Auto) 0 % (0-10); Hematocrit 32.4 % (36.0-46.0); Hemoglobin 10.6 g/dL (12.0-16.0); Immature Granulocytes Auto 0.03 Thou/mm3 (0.00-0.00); Lymphocytes # (Auto) 1.7 Thou/mm3 (1.0-4.8); Lymphocytes % (Auto) 20 % (10-50); Mean Corpuscular HGB Conc 32.7 g/dl (31.0-37.0); Mean Corpuscular Hemoglobin 28.7 pg (25.0-35.0); Mean Corpuscular Volume 88 fL (80-100); Monocytes # (Auto) 0.7 Thou/mm3 (0.0-0.8); Monocytes % (Auto) 8 % (0-12); Neutrophils # (Auto) 6.3 Thou/mm3 (1.8-7.7); Neutrophils % (Auto) 72 % (37-80); Nucleated Red Blood Cell # 0.00 Thou/mm3 (0.00-0.00); Nucleated Red Blood Cell % 0 /100 WBC (0); Platelet Count 142 Thou/mm3 (140-440); RDW Standard Deviation 41.2 fL (36.4-46.3); Red Blood Count 3.69 Miln/mm3 (4.00-5.20); White Blood Count 8.7 Thou/mm3 (3.6-11.0)
[2025-08-10 05:53] LABS: HIV (1&2) Antibody Rapid Non-Reactive
[2025-08-10 06:44] LABS: Hepatitis C Antibody Non Reactive (Non React)
[2025-08-10 08:00] VITALS: BP 123/75; PULSE 70; RESP 15; TEMP 36.8; O2SAT 98
--- NOTE | 2025-08-10 08:36 | ESPR_ITS ---
Subjective Subjective Interval history: Delivery type: Patient doing well this morning. No acute complaints. Ambulating, tolerating p.o., and voiding without difficulty. HTN/Pre-E screen negative: No CP, SOB, TANNER, visual changes, RUQ pain. : Yes Lochia: diminishing Bowel: Flatus + / BM + UOP: Adequate Exam Vital Signs Temp Pulse Resp BP Pulse Ox O2 Del Method 98.2 F 70 15 123/75 98 Room Air 08/10/25 08:00 08/10/25 08:00 08/10/25 08:00 08/10/25 08:00 08/10/25 08:00 08/10/25 08:00 Constitutional Constitutional: no acute distress Routine HEENT Exam Head: Present normocephalic and atraumatic Eye: Present EOMI and PERRL ENT: Present mucous membranes moist Routine Neck Exam Neck: Present supple and trachea midline Routine Respiratory Exam Respiratory: Present chest non-tender, lungs clear, normal breath sounds and no resp distress Routine Cardiovascular Exam Cardiovascular: Present RRR Routine Abdominal Exam Abdominal: Present soft and normoactive bowel sounds Routine Extremities Exam Extremities: Present full ROM Routine Skin Exam Skin: Present intact, dry and warm Routine Neurological Exam Neurological: Present alert, oriented X3 and CN II-XII intact Routine Psychiatric Exam Psychiatric: Present normal affect and normal thought process Objective Labs 08/10/25 04:37 08/09/25 11:30 Labs: Laboratory Results - last 24 hr 08/09/25 08/09/25 08/10/25 11:30 16:55 04:37 WBC 5.2 9.6 D 8.7 RBC 4.70 4.50 3.69 L Hgb 13.5 13.0 10.6 L D Hct 40.5 40.1 32.4 L MCV 86 89 88 MCH 28.7 28.9 28.7 MCHC 33.3 32.4 32.7 RDW Std Deviation 40.1 42.5 41.2 Plt Count 182 170 142 Neut % (Auto) 56 85 H 72 Lymph % (Auto) 36 12 20 [place] % (Auto) 7 2 8 Eos % (Auto) 0 0 0 Baso % (Auto) 0 0 0 Neut # (Auto) 2.9 8.1 H 6.3 Lymph # (Auto) 1.9 1.2 1.7 [place] # (Auto) 0.4 0.2 0.7 Eos # (Auto) 0.0 0.0 0.0 Baso # (Auto) 0.0 0.0 0.0 Immature Gran # (Auto) 0.01 H 0.03 H 0.03 H Absolute Nucleated RBC 0.00 0.00 0.00 Immature Gran % 0 0 0 Nucleated RBC % 0 0 0 Sodium 141 Potassium 4.0 Chloride 107 Carbon Dioxide 21.8 Anion Gap 12 BUN 8 L Creatinine 0.7 Estim Creat Clear Calc Not Performed. eGFR > 60 BUN/Creatinine Ratio 11 L Glucose [address] Glu mg/dL 249 H Hemoglobin A1c 10.3 H Calculated Osmolality 278 Calcium 8.9 Corrected Calcium 8.9 Total Bilirubin 0.5 AST 29 ALT 30 Alkaline Phosphatase 205 H Total Protein 6.5 Albumin 4.1 Globulin 2.4 Albumin/Globulin Ratio 1.7 Syphilis Serology Reactive A T.pallidum Ab (MHA) See Sep Rpt Hepatitis C Antibody Non Reactive HIV 1&2 Antibody Rapid Non-Reactive Blood Type A Positive Antibody Screen NEGATIVE Blood Bank Wristband ID Yes Assessment & Plan Problem List (1) Positive RPR test: Status: Acute Assessment and plan: Patient has been treated for syphilis in the past (2) Obesity affecting in third trimester: Status: Acute (3) Previous section complicating : Status: Acute (4) Insulin dependent type 2 diabetes mellitus: Problem details: Insulin Status: Acute (5) Macrosomic baby: Status: Acute (6) delivery delivered: Status: Acute Assessment and plan: Assessment: PostOp Day #: 1 Maternal condition: Stable Plan: General: Stable, afebrile. Continue routine monitoring. Encourage ambulation and incentive spirometry. Continue insulin as prescribed and continue to monitor blood glucose HEENT/Cardiac/Respiratory: Hemodynamically stable. Monitor vitals. No chest pain or shortness of breath. GI: Tolerating diet, flatus/BM as documented. Bowel regimen: Colace / Senna / Miralax PRN : Voiding spontaneously / Mabry to gravity (remove when ambulating). Monitor urine output and lochia. Hematology: H/H pending / reviewed. Iron supplementation: [PO ferrous sulfate / IV if indicated]. Transfusion if Hb < 7 and symptomatic. Incision/Perineum: Vaginal: Perineum healing well Wound care: Keep clean and dry. Monitor for signs of infection. Breast: support as needed. Nipple care with lanolin / warm compresses PRN. Pain Control: Multimodal pain control: [Acetaminophen + NSAID ? Narcotics PRN]. Continue routine post-op analgesia schedule. DVT Prophylaxis: Early ambulation. SCDs while in bed. Infection Prophylaxis: Afebrile. No antibiotics indicated unless otherwise noted. Psych: Mood stable. Monitor for depression symptoms. [place] Depression Scale prior to discharge. Contraception: Discuss prior to discharge/ in office Disposition: Continue inpatient monitoring. Anticipate discharge on day 2 if clinically stable. Routine precautions reviewed. Follow-up: 2 week wound check & 6-week visit. Time Spent With Patient Time: Total time spent is greater than 50% in coordination of care (as documented) at patient's floor/unit and/or counseling patient:
[2025-08-10] MEDS: DOCUSATE SOD 100 MG CAPSULE PO (10:03)
[2025-08-10] MEDS: INSULIN HUM REGULAR 1 UNIT/0.01 ML (PER UNIT) 10 UNIT SC ×2 (11:29→14:38)
[2025-08-10 11:42] VITALS: BP 117/76; PULSE 83; RESP 16; TEMP 36.8; O2SAT 98
--- NOTE | 2025-08-10 15:12 | PC.NURSE ---
Pt requesting to not provide info to anyone over the phone or in person. Made registration aware about pts wishes to keep privacy and no calls transfer to nurses/staff to release pts info.
[2025-08-10] MEDS: ACETAMINOPHEN 325 MG TABLET 650 MG PO (16:26)
[2025-08-10 16:43] VITALS: BP 119/73; PULSE 84; RESP 16; TEMP 37; O2SAT 96
--- NOTE | 2025-08-10 17:26 | PC.NURSE ---
Informed MD whyte over the phone pt cont to have bakry ballon in place. Per MD will come to see pt shortly and remove.
[2025-08-10 20:00] VITALS: BP 107/75; PULSE 77; RESP 16; TEMP 36.6; O2SAT 98
[2025-08-10] MEDS: KETOROLAC INJ 30 MG/ML VIAL IVP (23:58)
[2025-08-11 04:03] VITALS: BP 119/81; PULSE 89; RESP 15; TEMP 36.6; O2SAT 97
--- NOTE | 2025-08-11 07:23 | PD.IDPROG ---
Subjective Subjective Interval history: syphlis test technically neg. ok if treated but no additonal rx needed Exam Vital Signs Temp Pulse Resp BP Pulse Ox O2 Del Method 97.8 F 89 15 119/81 97 Room Air 08/11/25 04:03 08/11/25 04:03 08/11/25 04:03 08/11/25 04:03 08/11/25 04:03 08/11/25 04:03 Narrative Exam benign exam Objective - Internal Medicine Labs 08/11/25 10:19 08/09/25 11:30 Assessment & Plan A&P Narrative probable old prior syphilis. hiv and hep c neg. shich she enies home at your discretion if no rx for syphilis needed. if treated as a precaution, that is ok Time Spent With Patient Time: Total time spent is greater than 50% in coordination of care (as documented) at patient's floor/unit and/or counseling patient:
[2025-08-11 07:40] VITALS: BP 113/72; PULSE 89; RESP 16; TEMP 36.3; O2SAT 98
[2025-08-11] MEDS: DOCUSATE SOD 100 MG CAPSULE PO (07:56)
[2025-08-11] MEDS: INSULIN HUM REGULAR 1 UNIT/0.01 ML (PER UNIT) 10 UNIT SC ×2 (07:56→13:02)
[2025-08-11] MEDS: HYDROcodone/APAP 5/325 TABLET 2 TAB PO (07:56)
--- NOTE | 2025-08-11 09:11 | PD.LDPPPRG ---
Subjective Subjective Interval history: The patient is a 29-year-old -2-0-4 status repeat with unilateral salpingectomy at 37 weeks 08/09/25. Her surgery was uncomplicated. Patient then had a hemorrhage approximately 4 to 5 hours after surgery and a Bakri balloon was placed with 300 cc of normal saline. This was kept overnight and removed on postop day #1 at 1800. Patient's. Delivery hemoglobin was 13.6 her delivery postdelivery hemoglobin on 08/10/2025 was 10.6. This morning patient is reporting some gas pain and burning on her incision. Her infant is in the NICU due to LGA and blood sugar issues. The baby weighed 12 pounds 3 ounces. Patient is otherwise ambulating passing flatus tolerating a general diet. Her blood sugars are under good control. She is on 20 units NPH in the morning and p.m. and 10 units of regular with each meal. The plan will be to check another CBC have the patient ambulate and see if she is ready to go home later today. Exam Vital Signs Temp Pulse Resp BP Pulse Ox O2 Del Method 97.8 F 89 15 119/81 97 Room Air 08/11/25 04:03 08/11/25 04:03 08/11/25 04:03 08/11/25 04:03 08/11/25 04:03 08/11/25 04:03 Narrative Exam Abdomen obese. Fundus firm. Incision clean dry and intact. No significant edema or erythema. Objective Labs 08/10/25 04:37 08/09/25 11:30 Assessment & Plan Problem List (1) Positive RPR test: Problem details: Patient was treated in past. No treatment needed per infectious disease Status: Acute (2) Obesity affecting in third trimester: Problem details: Home on Lovenox Status: Acute (3) Previous section complicating : Problem details: Routine postop care Status: Acute (4) Insulin dependent type 2 diabetes mellitus: Problem details: Insulin Status: Acute (5) Macrosomic baby: Status: Acute (6) delivery delivered: Status: Acute Time Spent With Patient Time: Total time spent is greater than 50% in coordination of care (as documented) at patient's floor/unit and/or counseling patient: Time with patient: less than 15 minutes
[2025-08-11] MEDS: KETOROLAC INJ 30 MG/ML VIAL IVP (09:44)
[2025-08-11] MEDS: INSULIN NPH 1 UNIT/0.01 ML (PER UNIT) 20 UNIT SC (09:45)
--- NOTE | 2025-08-11 10:20 | CHAP ---
Patient was visited by a Spiritual Care Volunteer on 08/10/2025 between 0900 and 1140 and received comfort, encouragement and/or prayer. Patient also received a blessing on infant and family.
[2025-08-11 11:08] LABS: Basophils # (Auto) 0.0 Thou/mm3 (0.0-0.2); Basophils % (Auto) 0 % (0-2.5); Eosinophils # (Auto) 0.2 Thou/mm3 (0.0-0.5); Eosinophils % (Auto) 2 % (0-10); Hematocrit 30.8 % (36.0-46.0); Hemoglobin 10.3 g/dL (12.0-16.0); Immature Granulocytes Auto 0.02 Thou/mm3 (0.00-0.00); Lymphocytes # (Auto) 1.2 Thou/mm3 (1.0-4.8); Lymphocytes % (Auto) 19 % (10-50); Mean Corpuscular HGB Conc 33.4 g/dl (31.0-37.0); Mean Corpuscular Hemoglobin 29.3 pg (25.0-35.0); Mean Corpuscular Volume 88 fL (80-100); Monocytes # (Auto) 0.4 Thou/mm3 (0.0-0.8); Monocytes % (Auto) 6 % (0-12); Neutrophils # (Auto) 4.9 Thou/mm3 (1.8-7.7); Neutrophils % (Auto) 73 % (37-80); Nucleated Red Blood Cell # 0.00 Thou/mm3 (0.00-0.00); Nucleated Red Blood Cell % 0 /100 WBC (0); Platelet Count 159 Thou/mm3 (140-440); RDW Standard Deviation 41.5 fL (36.4-46.3); Red Blood Count 3.52 Miln/mm3 (4.00-5.20); White Blood Count 6.7 Thou/mm3 (3.6-11.0)
[2025-08-11 11:20] VITALS: BP 109/74; PULSE 74; RESP 16; TEMP 36.7; O2SAT 98
[2025-08-11 15:05] VITALS: BP 110/72; PULSE 88; RESP 16; TEMP 36.7; O2SAT 97
--- NOTE | 2025-08-11 15:32 | PD.LDDS ---
DS: Providers Provider Date of admission: 08/09/25 10:31 Primary care physician: Villa Kulkarni MD Admitting Provider: Olena Suarez [facility] ([facility]) Attending Provider on Admission: Angel Carranza MD Consults: 08/09/25 15:19 Referral Routine Comment: Attending Provider on DC: Olena Suarez MD ([facility]) Discharging Provider: Olena Suarez MD ([facility]) Anticipated date of discharge: 08/11/25 DS: Diagnosis Discharge Diagnosis (1) Previous section complicating : Status: Acute (2) delivery delivered: Status: Acute Assessment & Plan: Patient discharged home post day #2 in stable condition (3) Obesity affecting in third trimester: Status: Acute Assessment & Plan: Home on Lovenox (4) Positive RPR test: Status: Acute (5) Insulin dependent type 2 diabetes mellitus: Status: Acute Problem List Completed Was Problem List Reviewed/Reconciled?: Yes Summary/Hosp Course Brief History: The patient is a 29-year-old -2-0-3 past obstetrical history significant for vaginal delivery x one 15 years ago. Patient stated that baby weighed in the 7 pound range. She then had a primary at 36 weeks of an 11 pound baby and most recently a repeat at 34 weeks for an 8 pound baby. Patient states during one of her C-sections one of her fallopian tubes was removed. She presents today at 37 weeks for a scheduled elective repeat section for insulin requiring gestational diabetes, noncompliant. The maternal medicine physician recommended a scheduled at 37 weeks. Of note her hemoglobin A1c on presentation is 10.3. The morning of her section the patient reported good movement no vaginal bleeding or loss of fluids. She was having regular nonpainful uterine contractions on the monitor. See history and physical for further details. Hospital course: Patient underwent an uncomplicated repeat low transverse section 08/09/2025. She had a unilateral salpingectomy. Her other fallopian tube had been removed previously in her first . See op report for further details. On postoperative day #0, approximately 5 hours after delivery patient had a hemorrhage that was managed by uterine massage, placement of a Bakri balloon, and medications. Her Bakri balloon was removed after 24 hours. Her predelivery hemoglobin was 13.6 postdelivery hemoglobin this morning 10.3. By postoperative day #2, patient was voiding, ambulating to the nursery to see the baby, tolerating a general diet, passing flatus and having bowel movements. Her bleeding was minimal. She was discharged home post operative day #2 in stable condition. Of note patient's blood sugars wer under good control at discharge on 20 units of NPH at night and 10 units of regular with each meal. The plan will be to follow-up in 1 week in our office to check blood sugars. Peripartum Data Delivery Method: Low Transverse Episiotomy Description: None Procedures: Procedures Operation Date: 08/09/25 12:45 Actual Procedure Side Surgeon p w/tubal OB Not Applicable Olena Suarez ([facility])MD complications: uterine atony Status at Discharge Cognitive/behavioral status at discharge: Patient is alert and orient x 3 no apparent distress Functional status at discharge: independent ambulation Overall status at discharge: patient is progressing back to baseline Time Spent with Patient Time attestation: Total time spent providing and/or coordinating discharge services: Time spent: Less than 30 minutes Specific discharge activities: Pelvic rest x 6 weeks. No heavy lifting or strenuous exercise x 6 weeks. Call with heavy vaginal bleeding, fevers or severe depression. Exam Vital Signs Temp Pulse Resp BP Pulse Ox O2 Del Method 98.1 F 88 16 110/72 97 Room Air 08/11/25 15:05 08/11/25 15:05 08/11/25 15:05 08/11/25 15:05 08/11/25 15:05 08/11/25 15:05 Narrative Exam The patient is alert and oriented x 3 in no apparent distress. Fundus is firm. Incisions clean dry and intact. Extremities show no significant edema or erythema. Discharge Plan Plan Patient Disposition: HOME (Self Care) Disposition Comment: Stable Patient condition on transfer: Stable Prescriptions/Referrals Prescriptions/Med Rec: New acetaminophen 325 mg Tablet 650 mg PO Q6HR PRN (Reason: Patient rated pain of 3) Qty: 60 0RF hydrocodone-acetaminophen 5-325 mg Tablet 2 tab PO Q6HR MDD 4 PRN (Reason: Patient rated pain 9 to 10) Qty: 20 0RF Humulin R Regular U-100 Insuln 100 unit/mL Solution 10 unit SCi TIDWM Qty: 30 0RF Humulin N NPH U-100 Insulin 100 unit/mL Suspension 20 unit SCi BID Qty: 30 0RF docusate sodium 100 mg Capsule 100 mg PO QDAY Qty: 60 0RF enoxaparin [Lovenox] 40 mg/0.4 mL syringe 40 mg subcut Q24H Qty: 4 4RF ibuprofen 600 mg tablet 600 mg PO Q6H PRN (Reason: pain) Qty: 90 0RF Continued (DME) insulin syr/ndl U100 half bonita 0.3 mL 30 gauge x 5/16 syringe See Rx Instructions .Route Qty: 100 6RF Rx Instructions: As directed, five times a day cholecalciferol (vitamin D3) 1,250 mcg (50,000 unit) capsule 1,250 mcg PO DAILY Patient Comments: TAKE ONE CAPSULE BY MOUTH EVERY WEEK PNV no.95-ferrous fumarate-FA [] 28 mg iron- 800 mcg Tablet 1 tab PO QDAY Qty: 60 0RF Discontinued Humulin N NPH Insulin KwikPen 100 unit/mL (3 mL) insulin pen 37 unit SUBCUT HS Patient Comments: INJECT 12 UNITS UNDER THE SKIN IN THE MORNING AND 12 UNITS AT BEDTIME Humulin R Regular U-100 Insuln 100 unit/mL solution 27 unit subcut QPM Humulin R Regular U-100 Insuln 100 unit/mL solution 15 unit subcut ACBR Rx Instructions: kwik pen Humulin N NPH U-100 Insulin 100 unit/mL suspension 30 unit SUBCUT ACBR Patient Comments: USE TO INJECT 20 UNITS EVERY MORNING AND 18 UNITS EVERY NIGHT AT BEDTIME Rx Instructions: kwik pen Referrals: Villa Kulkarni MD [Primary Care Provider, Family Practice] Patient/Caregiver Discharge Instructions Discharge Activity: activity as tolerated Other Discharge Activity Instructions:: Pelvic rest x 6 weeks no heavy exercise or lifting greater than 20 pounds x 6 weeks. Other Discharge Diet Instructions: Diabetic diet. Check blood sugars as instructed Education Materials: Losing Weight for Heart Health, Diabetes: Caring for Your Body, Diabetes: Activity Tips, C Section Dc Print Language: Occitan Activity Restrictions/Additional Instructions: Pelvic rest x 6 weeks. No heavy exercise times weeks weeks no lifting greater than 20 pounds x 6 weeks call with heavy bleeding fevers or severe depression. Follow-up in 1 week bring blood sugar logs. Stand Alone Forms: [place] Award Info., Patient Portal Info Letter Discharge Order Discharge Orders: Discharge (Routine); Ordered 08/11/25 Ordered By: Olena Suarez ([facility]) Planned Discharge Date 08/11/25 (3) Obesity affecting in third trimester Qualifiers: Obesity type affecting : other obesity due to excess calories Qualified Code(s): O99.213 - Obesity complicating , third trimester; E66.09 - Other obesity due to excess calories
[2025-08-11 15:56] VITALS: BMI 38.5
--- NOTE | 2025-08-11 16:40 | ESCONSULT_ITS ---
RE: XAVI GIL : 1995 DATE OF CONSULTATION: 08/11/2025 DATE OF SERVICE: 08/11/2025 REFERRING PHYSICIAN: Vince Suarez MD REASON FOR CONSULTATION: Probable false positive RPR. HISTORY OF PRESENT ILLNESS: The patient has syphilis test done as routine. She was positive before and reports she was recently positive in 2019 with her baby. But she never had treatment because her tests were always been called falsely positive. This is not unusual because the test requires the patients be positive on both the components. She is only positive for FTA. This pattern is usually consistent with prior syphilis but she has no prior syphilis. Her has not been tested and is neg. She has no prior treatment history. She has never had the disease to her knowledge. Her can be tested again as a precaution but he may already have been so. Her HIV and hep C tests are negative. She seems to be recovering nicely from her procedure the other day. She had a both a tubal and a . It was her third . PAST MEDICAL HISTORY: Medical problems include the and G4, P4 with large babies. There is no need for treatment because the test is technically negative because both parts need to be positive for it to be a positive test. If you treated her that is okay though. PHYSICAL EXAMINATION: On exam, the patient looks uncomfortable, but otherwise seems to be recovering uneventfully. She is wearing a binder over her belly. Her abdomen is benign. Extremities are unremarkable. Neurologic exam is grossly normal. ASSESSMENT: History of syphilis with a positive FTA only. No positive RPR. It is probably a false positive. RECOMMENDATIONS: The patient can should follow up with her outpatient primary. There is no need for further testing in my view. She is already known to have a false positive. If desired her can be tested. DT: 15:42:46 TT: 16:39:00 Ref: [id number] - TID: [id number] [facility]
== END 2025-08-11 16:45 | disposition home or self-care (01) | DRG 539 ==
LOC: S4SX 11:22 → S4NX 13:06
PROVIDERS: Internal Medicine Infectious Disease; Admitting Provider Obstetrics & Gynecology; PCP Family Medicine; Visit Provider Obstetrics & Gynecology
PROC: 0UL70ZZ Occlusion of Bilateral Fallopian Tubes, Open Approach (ICD-10-PCS; CPT 59514; principal; 2025-08-09 12:30)
DX: O34.211 Maternal care for low transverse scar from previous cesarean delivery (principal); Z37.0 Single live birth; Z3A.37 37 weeks gestation of pregnancy; O24.424 Gestational diabetes mellitus in childbirth, insulin controlled; Z30.2 Encounter for sterilization; O36.63X0 Maternal care for excessive fetal growth, third trimester, not applicable or unspecified; O99.214 Obesity complicating childbirth; E66.09 Other obesity due to excess calories; O72.1 Other immediate postpartum hemorrhage; Z91.199 Patient's noncompliance with other medical treatment and regimen due to unspecified reason
CPT/HCPCS: 36415; 59409; 80053; 83036; 85025; 86703; 86780; 86803; 86850; 86900; 86901; 94762; A4217; A4649; C1765; J0689; J1100; J1171; J1815; J1885; J2274; J2371; J2405; J2590; J3010; J3490; J7120; S0191; A9270; J2270

== ENCOUNTER 2025-08-24 08:55 | Outpatient (AMB) | payer MEDICAID, SELFPAY ==
[2025-08-24 09:05] VITALS: BP 126/82; PULSE 76; RESP 18; TEMP 36.6; O2SAT 97; BMI 31.6
--- NOTE | 2025-08-24 09:05 | AMB.OBPP ---
Vital Signs 08/24/25 09:05 Height 1.7 m Height Method Stated Weight 91.342 kg Weight Measurement Method Standing Scale BMI 31.6 BP 126/82 Blood Pressure Source Automatic Cuff Blood Pressure Location Right Upper Arm Position Sitting Respiration 18 Pulse 76 Pulse Source Monitor Temp 97.9 F Temp Source Temporal Artery Scan Pulse Oximetry (%) 97 Oxygen Delivery Method Room Air Allergies/Home Meds Allergies & Medications Allergies No Known Allergies Allergy (Verified 08/24/25 09:05) Medication Reconciliation insulin syr/ndl U100 half bonita 0.3 mL 30 gauge x 5/16 #100 ea 08/06/25 [Rx Confirmed 08/24/25] enoxaparin 40 mg/0.4 mL subcutaneous syringe (Lovenox) 40 mg (0.4 mL) subcut Q24H #4 mL 08/11/25 [Rx Confirmed 08/24/25] insulin NPH isoph U-100 human 100 unit/mL subcutaneous suspension (Humulin N NPH U-100 Insulin (isophane susp)) 20 unit (0.2 mL) SCi BID #30 mL 08/11/25 [Rx Confirmed 08/24/25] insulin regular human 100 unit/mL injection solution (Humulin R Regular U-100 Insulin) 10 unit (0.1 mL) SCi TIDWM #30 mL 08/11/25 [Rx Confirmed 08/24/25] Intake Visit Data Collection New Patient or Established: Established Patient (seen at [facility] within 3 years) Reason for Visit:: PP CSECTION Seen by Clinical Staff ONLY (RN/MA): No Associate Sales Manager Required: No Do You Feel Safe at Home: Yes Authorities Contacted: N/A PCP or OBGYN visit in last 3 months: Yes Hx Now: No Are you currently on any form of Control: No Pain Present Currently: No Pain Scale Used: Bobo-Fraser/Numerical Pain scale:: 0 Smoking Status Smoking Status: Never smoker Immunizations Flu Vaccine in the Last 12 Months: No Flu Vaccine Exclusion Criteria: No Exclusion Criteria CHANNEL DIRECTOR: Past Medical History Past Medical History: No Hx Neurological Disorders, Yes Hx Hypothyroidism, No Hx Hyperthyroidism, No Hx Breast Cancer, No Hx Cardiac Disorders, No Hx Cancer, No Hx Blood Disorders, No Hx Anemia, No Hx Gastrointestinal Disorders, No Hx Renal Disease, No Hx Diabetes Mellitus Type 1, Yes Hx Diabetes Mellitus Type 2, No Hx Tubal Ligation and No Hx Hysterectomy Questionnaires Covid-19 Vaccine Questionnaire Has patient been vacinated for Covid-19 Have you been vacinated for Covid-19: No Social History Living Situation History Marital Status: Lives With: Family Housing: [facility] Tobacco History Smoking Status: Never smoker Second Hand Smoke Exposure: No Alcohol History Alcohol Intake: Never Domestic Abuse History Do You Feel Safe at Home: Yes EPDS - PP Depression Screening Hosmer Pospartum Depression Screen I have been able to laugh and see the funny side of things: (0) As much as I always could I have looked forward with enjoyment to things: (0) As much as I ever did I have blamed myself unnecessarily when things went wrong: (0) No, never I have been anxious or worried for no good reason: (0) No, not at all I have felt scared or panicky for no very good reason: (0) No, not at all Things have been getting on top of me: (0) No, I have been coping as well as ever I have been so unhappy that I have had difficulty sleeping: (0) No, not at all I have felt sad or miserable: (0) No, not at all I have been so unhappy that I have been crying: (0) No, never The thought of harming myself has occurred to me: (0) Never EPDS completed yes HPI Interval History: Homero Case presents for a 2-week follow-up visit after section delivery on August 09. She reports her blood sugars are doing well, with no readings exceeding 200 and fasting glucose levels around 105. Prior to , she was not on insulin but was taking Ozempic prescribed by [facility] for diabetes management. She is currently checking her blood sugars and using insulin . The patient inquired about her incision and received guidance on using her abdominal binder for support during activities like walking and driving while removing it during rest periods at home. She has a history of section on August 09, 2025. The patient was taking insulin during but is no longer taking it. She was taking Ozempic before from [facility] but discontinued it during . ROS: Negative except as stated above, limited to CHANNEL DIRECTOR and pertinent complaints. Exam Narrative Physical exam: - Abdominal: Previous scar well-healed. General General Appearance: alert, in no apparent distress and healthy appearing Head Head exam: atraumatic Neck Neck exam: Present normal inspection and trachea midline Chest Chest inspection: Present normal inspection and symmetric chest wall rise External exam: Present normal external exam; Absent tenderness Neuro Neurological exam: Present oriented X3 Psych Psychiatric exam: Present normal affect and normal mood Office Procedures OBC Clinic LOC & Office Proc's Nursing/Assessment Patient Status: Established Patient OB Clinic Nursing Assessment: Update PMH in EMR and Vital Signs OB Clinic Coordination of Care: Complex Care and Chronic Disease 1-5, Education Complex Pt/Fam, Consent,records obtained, informed consent, Results/Orders obtained and Staff clarify orders Established Patient Charge Established Patient Point Assignment: 90 Established Patient Point Charge: EP Level 3 (80-115) Assessment & Plan Diagnosis / Problem List (1) delivery delivered: Status: Acute (2) Previous section complicating : Status: Acute (3) Obesity affecting in third trimester: Status: Acute Qualifiers: Obesity type affecting : other obesity due to excess calories Qualified Code(s): O99.213 - Obesity complicating , third trimester; E66.09 - Other obesity due to excess calories (4) Diabetic ketoacidosis associated with type 2 diabetes mellitus: Status: Acute (5) Insulin dependent type 2 diabetes mellitus: Status: Acute Plan status post section: - Patient is 2 weeks following section performed on August 09. - Surgical incision examination reveals good healing with skin already healed. - Patient is recovering appropriately from surgical delivery. Plan: - Continue use of abdominal binder for support during activities like walking and driving, can remove when resting at home. - Follow-up appointment scheduled for 8 weeks (6 weeks from current visit). Diabetes mellitus : - Patient has diabetes mellitus that required insulin management during . - Currently monitoring blood glucose with readings showing maximum of 200 mg/dL and fasting glucose around 105 mg/dL. - Prior to , patient was managed on Ozempic prescribed by [facility] rather than insulin. Plan: - Return to [facility] for diabetes management. - Cleared to discontinue insulin and resume Ozempic. - Ozempic is safe to use while . - Can stop insulin altogether once restarted on Ozempic.
== END 2025-08-24 09:24 | disposition home or self-care (01) ==
LOC: HODSOBC 08:55
PROVIDERS: Supervising Provider Obstetrics & Gynecology; Visit Provider Obstetrics & Gynecology
DX: Z39.2 Encounter for routine postpartum follow-up (principal); O24.13 Pre-existing type 2 diabetes mellitus, in the puerperium; O99.215 Obesity complicating the puerperium
CPT/HCPCS: 99213; G0463

== ENCOUNTER 2025-09-25 21:20 | Emergency (ER) | payer MEDICAID, SELFPAY ==
[2025-09-25 21:21] VITALS: BMI 33.2
[2025-09-25 21:51] VITALS: BP 118/77; PULSE 91; RESP 20; TEMP 36.7; O2SAT 96
--- NOTE | 2025-09-25 22:02 | XR_ITS ---
Examination: CT abdomen and pelvis without contrast. Coronal 3-D reconstructions. Sagittal 2-D reconstructions. Date and time of exam: September 25, 2025, 1056 hours INDICATION: Lower pelvic pain today CTDI: vol (mGy): 9.32 DLP: (mGycm): 610 Technique: Axial images of the abdomen have been obtained, 3 mm slice thickness Intravenous contrast material has not been administered. Low dose protocols were performed. One or more of the following dose reduction techniques were used; automated exposure control, adjustment of the mA and/or KV according to patient size, use of iterative reconstruction technique. Findings: Mild atelectasis in the right lower lobe No visualized liver or splenic lesion Absent gallbladder No pancreatic or adrenal mass No renal or ureteral calculi, no hydronephrosis Aorta normal size 15 mm fat-containing umbilical hernia Normal appendix Prominent left ovary possible 5 cm left pelvic cyst Moderate free fluid in the pelvis Urinary bladder intact Intact osseous structures IMPRESSION: Prominent left ovary possible 5 cm left pelvic cyst Moderate free fluid in the pelvis Recommend pelvic sonography follow-up
--- NOTE | 2025-09-25 22:02 | PD.EDRME ---
Rapid Medical Screening Exam RME Arrival date/time: 09/25/25 21:20 This is a case of 29-year-old female who had August 09, 2025 complaining of severe abdominal pain radiating to the vaginal area and lower back today persistence of the symptoms this patient decided to sought consult here in the emergency room Chief Complaint: Abdominal Pain Time Seen by Provider: 09/25/25 22:01 Vital signs: Vital Signs Temperature 98.1 F 09/25/25 21:51 Pulse Rate 91 09/25/25 21:51 Respiratory Rate 20 09/25/25 21:51 Blood Pressure 118/77 09/25/25 21:51 Pulse Oximetry (%) 96 09/25/25 21:51 Oxygen Delivery Method Room Air 09/25/25 21:51 Exam: Moderate tenderness both lower abdomen no guarding no rebound no rigidity no CVA tenderness Clinical Impression: Abdominal pain
[2025-09-25] MEDS: MORPHINE SULF INJ 4 MG/ML VIAL IM (22:15)
[2025-09-25] MEDS: ONDANSETRON ODT 4 MG TABRAP PO (22:17)
[2025-09-25 22:34] LABS: Collection Type, Urine Clean Catch
[2025-09-25 22:35] LABS: Basophils # (Auto) 0.0 Thou/mm3 (0.0-0.2); Basophils % (Auto) 1 % (0-2.5); Eosinophils # (Auto) 0.1 Thou/mm3 (0.0-0.5); Eosinophils % (Auto) 2 % (0-10); Hematocrit 37.3 % (36.0-46.0); Hemoglobin 12.5 g/dL (12.0-16.0); Immature Granulocytes Auto 0.01 Thou/mm3 (0.00-0.00); Lymphocytes # (Auto) 2.0 Thou/mm3 (1.0-4.8); Lymphocytes % (Auto) 33 % (10-50); Mean Corpuscular HGB Conc 33.5 g/dl (31.0-37.0); Mean Corpuscular Hemoglobin 29.3 pg (25.0-35.0); Mean Corpuscular Volume 88 fL (80-100); Monocytes # (Auto) 0.4 Thou/mm3 (0.0-0.8); Monocytes % (Auto) 6 % (0-12); Neutrophils # (Auto) 3.5 Thou/mm3 (1.8-7.7); Neutrophils % (Auto) 58 % (37-80); Nucleated Red Blood Cell # 0.00 Thou/mm3 (0.00-0.00); Nucleated Red Blood Cell % 0 /100 WBC (0); Platelet Count 307 Thou/mm3 (140-440); RDW Standard Deviation 42.1 fL (36.4-46.3); Red Blood Count 4.26 Miln/mm3 (4.00-5.20); White Blood Count 6.1 Thou/mm3 (3.6-11.0)
[2025-09-25 22:36] LABS: HCG Qualitative,Urine Negative
[2025-09-25 22:41] LABS: Bacteria,Urine 2+; Bilirubin,Urine Negative (Negative); Blood,Urine Trace (Negative); Clarity,Urine Clear (Clear/Hazy); Color,Urine Yellow (Lt Yel-Yel); Glucose, Urine Negative (Negative); Ketones,Urine Negative (Negative); Leukocyte Esterase,Urine Negative (Negative); Nitrite,Urine Negative (Negative); PH,Urine 5.5 (5.0-7.0); Protein,Urine Negative (Neg - Trace); RBC,Urine 2 /hpf (0-3); Specific Gravity,Urine 1.026 (1.001-1.035); Squamous Epithelial Cell,Urine 5 /hpf (0-5); Urobilinogen,Urine Negative mg/dL (0.0-1.0); WBC,Urine 1 /hpf (0-5)
[2025-09-25 22:54] LABS: Alanine Aminotransferase 117 U/L (10-49); Albumin, Serum 4.8 gm/dL (3.5-5.0); Albumin/Globulin Ratio 1.4 (1.2-2.2); Alkaline Phosphatase 136 U/L (46-116); Anion Gap 12 (7-16); Aspartate Amino Transferase 54 U/L (0-34); BUN/Creatinine Ratio 11 Ratio (12-20); Bilirubin,Total 0.5 mg/dL (0.3-1.2); Blood Urea Nitrogen 9 mg/dL (9-23); Calcium 9.9 mg/dL (8.3-10.6); Calcium (Corrected) 9.9 mg/dL (8.5-10.1); Carbon Dioxide 25.8 mMol/L (20.0-31.0); Chloride 103 mMol/L (98-107); Creatinine (Component) 0.8 mg/dL (0.6-1.3); Estimated Creatinine Clearance 121.3 mL/min (>60); Globulin 3.5 gm/dL (2.3-3.5); Glucose 132 mg/dL (74-106); Lipase 33 U/L (12-53); Osmolality,Calculated 281 (275-295); Potassium 3.9 mMol/L (3.4-5.1); Sodium 141 mMol/L (136-145); Total Protein 8.3 gm/dL (5.7-8.2); eGFR > 60 See Note
--- NOTE | 2025-09-26 | XR_ITS ---
Examination: Pelvic ultrasound, transabdominal, complete Technique: Transabdominal ultrasound of the pelvis performed using grayscale imaging Date and time of exam: September 26, 2025, 0106 hours INDICATIONS: 1 month with pelvic pain today FINDINGS: Uterus 10.0 cm no uterine mass or retained products of conception Endometrial stripe 1.4 cm Right ovary 2.9 cm arterial flow Left ovary 6.4 cm arterial flow 4.1 x 3.3 x 4.0 cm cyst IMPRESSION: Left ovarian cystic mass with internal echoes, complex,, consider hemorrhagic cyst recommend 3-month follow-up pelvic sonography
--- NOTE | 2025-09-26 00:15 | PD.EDABDPN ---
ED Abdominal Pain RME/HPI General Chief Complaint: Abdominal Pain Stated complaint: PAIN IN GROIN AREA Time seen by provider: 09/25/25 22:01 Arrival date/time: 09/25/25 21:20 RME / HPI RME / HPI narrative: 09/25/25 21:20 This is a case of 29-year-old female who had August 09, 2025 complaining of severe abdominal pain radiating to the vaginal area and lower back today persistence of the symptoms this patient decided to sought consult here in the emergency room DR. URBINA MAIN ED EVALUATION: 29 y/o female presents to ED c/o left abdominal pelvic pain x 3 hours. Patient underwent tubal ligation and delivered via on 08/09/2025 with no known complications. No other complaints. Exam: Moderate tenderness both lower abdomen no guarding no rebound no rigidity no CVA tenderness Impression: Abdominal pain Related Data Previous Rx's ?Medication ?Instructions ?Recorded insulin syr/ndl U100 half bonita 0.3 #100 ea 08/06/25 mL 30 gauge x /16 enoxaparin 40 mg/0.4 mL 40 mg (0.4 mL) subcut Q24H #4 mL 08/11/25 subcutaneous syringe (Lovenox) insulin NPH isoph U-100 human 100 20 unit (0.2 mL) SCi BID #30 mL 08/11/25 unit/mL subcutaneous suspension (Humulin N NPH U-100 Insulin (isophane susp)) insulin regular human 100 unit/mL 10 unit (0.1 mL) SCi TIDWM #30 mL 08/11/25 injection solution (Humulin R Regular U-100 Insulin) hydrocodone 5 mg-acetaminophen 325 1 tab PO Q6H PRN pain #20 tabs 09/26/25 mg tablet ibuprofen 800 mg tablet 800 mg PO Q8H PRN pain #30 tabs 09/26/25 Allergies Allergy/AdvReac Type Severity Reaction Status Date / Time No Known Allergies Allergy Verified 08/24/25 09:05 Review of Systems Review of Systems Systems Reviewed: All systems reviewed, normal except as documented Past Medical History Past Medical History GASTROINTESTINAL: Positive Gall Bladder Disease REPRODUCTIVE: Positive Previous Pregnancies ENDOCRINE: Positive Diabetes Mellitus Type 2 and Hypothyroidism OTHER HISTORY: Positive Hospitalization Surgical History SURGICAL: Positive Abdominal Surgery, Tubal Ligation and Section ED Exam Narrative Physical exam: Generally patient is alert and oriented x 3 and in no obvious distress, heart regular rate and rhythm, lungs clear to auscultation equal bilaterally, abdomen soft bowel sounds present nondistended left adnexal tenderness without obvious rebound, extremities show no edema, neurologic exam shows no focal motor deficits with a [place] Coma Scale of 15 Course Quality Measures none Orders Category Date Time Status CT abdomen pelvis wo con Stat Exams 09/25/25 22:02 Completed US pelvic complete Stat Exams 09/26/25 00:00 Taken CBC Stat Lab 09/25/25 22:22 Completed Comprehensive Metabolic Panel Stat Lab 09/25/25 22:22 Completed HCG Qualitative,Urine Stat Lab 09/25/25 22:18 Completed Lipase Stat Lab 09/25/25 22:22 Completed Urinalysis Stat Lab 09/25/25 22:18 Completed Morphine* Inj Med 09/25/25 22:02 Discontinued 4 mg IM X1 ONE Ondansetron Odt [Zofran Odt] Med 09/25/25 22:02 Discontinued 4 mg PO X1 ONE Vital Signs Vital signs: Vital Signs Temperature 98.1 F 09/25/25 21:51 Pulse Rate 91 09/25/25 21:51 Respiratory Rate 20 09/25/25 21:51 Blood Pressure 118/77 09/25/25 21:51 Pulse Oximetry (%) 96 09/25/25 21:51 Oxygen Delivery Method Room Air 09/25/25 21:51 Abdominal Pain MDM MDM Narrative MDM Narrative:: Scribe Attestation: IThi am scribing for and in the presence of Dr. Urbina. Provider Notation: Although this document has been carefully reviewed, there may still be some phonetic and other typographical errors. These errors are purely grammatical due to imperfections in the software program and should not be construed in any way to compromise the substance of the patient's medical care during this visit. I reviewed all labs. is negative. Urine is not infected. CT scan done the abdomen pelvis with IV contrast showed the possibility of a 5 cm left ovarian cyst. Pelvic ultrasound showed a 4 cm left ovarian cyst without evidence of torsion. There was arterial flow to bilateral ovaries. The patient will be discharged in stable condition to take a limited number of hydrocodone as prescribed. Ibuprofen as prescribed. Follow-up with her doctor for further treatment and evaluation. I interpreted all labs. Patient data External records reviewed:: [facility] previous records (Reviewed prior ED records from 05/18/25. Patient was seen for Muscle strain.) Clinical information provided by:: patient Social determinants that could affect healthcare access:: none Patient has the following chronic illnesses:: Gall Bladder Disease, Diabetes Mellitus Type 2, and Hypothyroidism How is presenting disease/condition affected by chronic disease/condition?: exacerbated by Evaluation data The following diagnostics were reviewed and interpreted by me:: lab results and radiology exam(s) Lab and/or radiology exams considered but not ordered:: None Interpretation Summary: RADIOLOGY Abdomen/Pelvis CT: Findings: Mild atelectasis in the right lower lobe No visualized liver or splenic lesion Absent gallbladder No pancreatic or adrenal mass No renal or ureteral calculi, no hydronephrosis Aorta normal size 15 mm fat-containing umbilical hernia Normal appendix Prominent left ovary possible 5 cm left pelvic cyst Moderate free fluid in the pelvis Urinary bladder intact Intact osseous structures IMPRESSION: Prominent left ovary possible 5 cm left pelvic cyst Moderate free fluid in the pelvis Recommend pelvic sonography follow-up Pelvic US: Pending official radiology report. Medications / Prescriptions Medications or Prescriptions considered but not ordered:: None Medication administrations:: Medication Administration History Discontinued Medications Morphine Sulfate (Morphine Sulf Inj 4 Mg/Ml Vial) 4 mg IM X1 ONE Stop: 09/25/25 22:03 Last Admin: 09/25/25 22:15 Dose: 4 mg Documented By: OA Ondansetron HCl (Ondansetron Odt 4 Mg Tabrap) 4 mg PO X1 ONE; Protocol Stop: 09/25/25 22:03 Last Admin: 09/25/25 22:17 Dose: 4 mg Documented By: OA See above if any. Consultations Consultation(s) initiated? (list below): No Diagnosis Differential diagnosis abdominal pain: abdominal pain, acute appendicitis, calculus of kidney, endometriosis, small bowel obstruction and other (Ovarian cyst, Ruptured ovarian cyst) Most likely diagnosis given after review of the tests above:: None Admission Indicated Admission indicated?: not indicated Explain why admission is indicated or not indicated:: Patient does not meet admission criteria. Admission Request Was there a request for admission?: No Disposition Plan Disposition Plan: Discharge Discharge Attestation Discharge Attestation: The patient and all family members were given an opportunity to ask questions and understood the discharge instructions. Discharge instructions specifically effects, indications for sooner follow up or return to the emergency department, and the expected course of current diagnosis. Patient condition: Stable Discharge Plan Plan Patient Disposition: HOME (Self Care) Prescriptions/Referrals Prescriptions/Med Rec: New hydrocodone-acetaminophen 5-325 mg tablet 1 tab PO Q6H MDD 4 PRN (Reason: pain) Qty: 20 0RF ibuprofen 800 mg tablet 800 mg PO Q8H PRN (Reason: pain) Qty: 30 0RF No Action (DME) insulin syr/ndl U100 half bonita 0.3 mL 30 gauge x 5/16 syringe See Rx Instructions .Route Qty: 100 6RF Rx Instructions: As directed, five times a day Humulin R Regular U-100 Insuln 100 unit/mL Solution 10 unit SCi TIDWM Qty: 30 0RF Humulin N NPH U-100 Insulin 100 unit/mL Suspension 20 unit SCi BID Qty: 30 0RF enoxaparin [Lovenox] 40 mg/0.4 mL syringe 40 mg subcut Q24H Qty: 4 4RF Referrals: Villa Kulkarni MD [Primary Care Provider, Family Practice] - In 1 week Problem List Clinical Impression: Ovarian cyst Patient/Caregiver Discharge Instructions Education Materials: ED Ovarian Cyst Additional Instructions: Medication as prescribed. Follow-up with your doctor. Return to ER as needed or if condition worsens. Print Language: Ugandan Stand Alone Forms: [employer] Award Info., Patient Portal Info Letter
--- NOTE | 2025-09-26 02:17 | PRELIM_ITS ---
Pelvic ultrasound (transabdominal) with Doppler and wave Doppler spectral analysis. September 26, 2025 0106 hours Clinical history: Assess for ovarian torsion Technique: Real-time, grayscale, transabdominal pelvic ultrasound was performed using Duplex scanning including arterial inflow, venous outflow, color and spectral Doppler. Comparison: None available at the time of this report. Findings: The uterus is normal in size measuring 10.0 x 6.2 x 7.3 cm. The endometrium is unremarkable and measures 1.4 cm. The right ovary measures 2.9 x 2.5 x 2.5 cm and is unremarkable. The left ovary measures 6.4 x 5.1 x 5.6 cm, mildly complex cystic lesion measuring 4.1 x 3.3 x 4.0 cm. Both ovaries demonstrate color flow and spectral waveforms on Doppler evaluation. There is no adnexal mass. There is no free fluid on the submitted images. Impression: Mildly complex left ovarian cystic lesion, follow-up in 3 months is recommended. No evidence of ovarian torsion Report Electronically Signed By: Jacques Waller 09/26/2025 2:17:01 AM [EST]
== END 2025-09-26 02:22 | disposition home or self-care (01) ==
PROVIDERS: Nurse Practitioner Family; Emergency Provider Emergency Medicine; PCP Family Medicine
DX: N83.202 Unspecified ovarian cyst, left side (principal); R18.8 Other ascites
CPT/HCPCS: 36415; 74176; 76856; 80053; 81001; 81025; 83690; 85025; 96372; 99283; J2270; Q0162

== ENCOUNTER 2025-10-04 09:30 | Outpatient (AMB) | payer MEDICAID, SELFPAY ==
[2025-10-04 09:52] VITALS: BP 112/78; PULSE 92; RESP 18; TEMP 36.2; O2SAT 98; BMI 32.3
--- NOTE | 2025-10-04 09:52 | AMBOBPPN_ITS ---
Vital Signs 10/04/25 09:52 Height 1.7 m Height Method Stated Weight 93.667 kg Weight Measurement Method Standing Scale BMI 32.3 BP 112/78 Blood Pressure Source Automatic Cuff Blood Pressure Location Left Upper Arm Position Sitting Respiration 18 Pulse 92 Pulse Source Monitor Temp 97.2 F Temp Source Oral Pulse Oximetry (%) 98 Oxygen Delivery Method Room Air Allergies/Home Meds Allergies & Medications Allergies No Known Allergies Allergy (Verified 10/04/25 09:54) Medication Reconciliation insulin syr/ndl U100 half bonita 0.3 mL 30 gauge x 5/16 #100 ea 08/06/25 [Rx Confirmed 10/04/25] enoxaparin 40 mg/0.4 mL subcutaneous syringe (Lovenox) 40 mg (0.4 mL) subcut Q24H #4 mL 08/11/25 [Rx Confirmed 10/04/25] insulin NPH isoph U-100 human 100 unit/mL subcutaneous suspension (Humulin N NPH U-100 Insulin (isophane susp)) 20 unit (0.2 mL) SCi BID #30 mL 08/11/25 [Rx Confirmed 10/04/25] insulin regular human 100 unit/mL injection solution (Humulin R Regular U-100 Insulin) 10 unit (0.1 mL) SCi TIDWM #30 mL 08/11/25 [Rx Confirmed 10/04/25] hydrocodone 5 mg-acetaminophen 325 mg tablet 1 tab PO Q6H PRN pain #20 tabs 09/26/25 [Rx Confirmed 10/04/25] ibuprofen 800 mg tablet 800 mg PO Q8H PRN pain #30 tabs 09/26/25 [Rx Confirmed 10/04/25] Intake Visit Data Collection New Patient or Established: Established Patient (seen at [facility] within 3 years) Reason for Visit:: PP Seen by Clinical Staff ONLY (RN/MA): No Network Planner Required: No Do You Feel Safe at Home: Yes Authorities Contacted: N/A PCP or OBGYN visit in last 3 months: Yes Date of Last PCP or OBGYN visit: 09/25/25 Hx Now: No Are you currently on any form of Control: No Pain Present Currently: No Pain Scale Used: Bobo-Fraser/Numerical Pain scale:: 0 Smoking Status Smoking Status: Never smoker Immunizations Flu Vaccine in the Last 12 Months: No Flu Vaccine Exclusion Criteria: No Exclusion Criteria FILM EDITOR: Past Medical History Past Medical History: No Hx Neurological Disorders, Yes Hx Hypothyroidism, No Hx Hyperthyroidism, No Hx Breast Cancer, No Hx Cardiac Disorders, No Hx Cancer, No Hx Blood Disorders, No Hx Anemia, No Hx Gastrointestinal Disorders, No Hx Renal Disease, No Hx Diabetes Mellitus Type 1, Yes Hx Diabetes Mellitus Type 2, Yes Hx Tubal Ligation and No Hx Hysterectomy Questionnaires Covid-19 Vaccine Questionnaire Has patient been vacinated for Covid-19 Have you been vacinated for Covid-19: Yes Social History Living Situation History Lives With: Family Housing: [facility] Tobacco History Smoking Status: Never smoker Second Hand Smoke Exposure: No Alcohol History Alcohol Intake: Never Domestic Abuse History Do You Feel Safe at Home: Yes EPDS - PP Depression Screening [place] Pos[place] Depression Screen I have been able to laugh and see the funny side of things: (0) As much as I always could I have looked forward with enjoyment to things: (0) As much as I ever did I have blamed myself unnecessarily when things went wrong: (0) No, never I have been anxious or worried for no good reason: (0) No, not at all I have felt scared or panicky for no very good reason: (0) No, not at all Things have been getting on top of me: (0) No, I have been coping as well as ever I have been so unhappy that I have had difficulty sleeping: (0) No, not at all I have felt sad or miserable: (0) No, not at all I have been so unhappy that I have been crying: (0) No, never The thought of harming myself has occurred to me: (0) Never Total Score: EPDS Score: Referral is indicated for score of 9 or more, suicidal, or if provider believes patient is depressed regardless of score.: 0 EPDS completed yes HPI Interval History: Homero Case presents for a appointment following section on August 17, 2025. She subsequently presented to the emergency room on September 17, 2025, where she was found to have a left ovarian cyst measuring 4.1 by 3.3 by 4 centimeters. The patient experienced significant pain that had been ongoing for a while, describing it as pain everywhere in the butt and all that. She denied any bleeding associated with the pain. The emergency department evaluation included both CT scan and ultrasound imaging, which revealed the ovarian cyst. The patient was prescribed narcotics for pain management during the emergency room visit. She has a history of section on August 17, 2025, with bilateral salpingectomy performed at the time of delivery. The patient is not currently . 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 The patient plans to return to work on October 25 and requires work clearance documentation. She has an obstetric history with recent delivery via section on August 17, 2025, and underwent tubal ligation at time of delivery. ROS: Negative except as stated above, limited to FILM EDITOR and pertinent complaints. Diagnostic Test Results and Labs: - CT scan (09-17-2025): Left ovarian cyst measuring 4.1 x 3.3 x 4 cm - Ultrasound (09-17-2025): Left ovarian cyst measuring approximately 4 cm Exam General General Appearance: alert, in no apparent distress and healthy appearing Head Head exam: atraumatic Neck Neck exam: Present normal inspection and trachea midline Chest Chest inspection: Present normal inspection and symmetric chest wall rise External exam: Present normal external exam; Absent tenderness Neuro Neurological exam: Present oriented X3 Psych Psychiatric exam: Present normal affect and normal mood Office Procedures [facility] Clinic LOC & Office Proc's Nursing/Assessment Patient Status: Established Patient OB Clinic Nursing Assessment: Medication Reconciliation, Update PMH in EMR and Vital Signs OB Clinic Coordination of Care: Complex Care and Chronic Disease 1-5, Consent,records obtained, informed consent, Education Simp Pt/Fam, Lab and Imaging orders, Results/Orders obtained and Staff clarify orders Established Patient Charge Established Patient Point Assignment: 105 Established Patient Point Charge: EP Level 3 (80-115) Assessment & Plan Diagnosis / Problem List (1) Encounter for routine follow-up: Status: Acute (2) Right ovarian cyst: Status: Acute Plan Left Ovarian Cyst: - 4.1 x 3.3 x [address] scan and ultrasound during emergency room visit on September 17, 2025. - Most likely hemorrhagic cyst related to first ovulation after delivery. - Widespread pain explained by bleeding from ovulation site spreading in abdomen. Plan: - Monitor with expectant management as long as pain is improving. - Repeat ultrasound in December 2024 (2-3 months from Bhavik presentation). - Consider diagnostic laparoscopy if severe pain recurs. - Patient received narcotics for pain management in emergency room. - Schedule follow-up in December 2024 to assess cyst resolution. Status Post Section: - section performed August 17, 2025 with bilateral salpingectomy. - Not . - Uncomplicated recovery aside from ovarian cyst. Plan: - Complete work release forms for return to work on October 25, 2024. - Patient to bring work forms for completion. - No further follow-up needed given uncomplicated recovery.
== END 2025-10-04 10:00 | disposition home or self-care (01) ==
LOC: HODSOBC 09:30
PROVIDERS: Supervising Provider Obstetrics & Gynecology; Visit Provider Obstetrics & Gynecology
DX: Z39.2 Encounter for routine postpartum follow-up (principal); O99.893 Other specified diseases and conditions complicating puerperium; N83.202 Unspecified ovarian cyst, left side; Z98.51 Tubal ligation status; O24.13 Pre-existing type 2 diabetes mellitus, in the puerperium; Z79.4 Long term (current) use of insulin
CPT/HCPCS: 99213; G0463